=== PATIENT | male | born 1935 | race Caucasian/White ===

== ENCOUNTER → 2016-09-14 | Outpatient (CLI) | payer MEDICARE, BC ==
[2016-09-14 09:57] LABS: ANION GAP 15 (5-19); BLOOD UREA NITROGEN 37 mg/dL (7-20); CALCIUM 9.2 mg/dL (8.4-10.2); CARBON DIOXIDE 25 mmol/L (22-30); CHLORIDE 108 mmol/L (98-107); CREATININE RESULT 1.81 mg/dL (0.52-1.25); GLUCOSE 124 mg/dL (75-110); POTASSIUM 4.5 mmol/L (3.6-5.0); SODIUM 148.3 mmol/L (137-145)
[2016-09-16 12:38] LABS: CREATININE URINE 103.4 mg/dL (Not Estab.)
== END ==
LOC: OD 08:31
PROVIDERS: ATTEND Internal Medicine Nephrology
DX: N18.3 Chronic kidney disease, stage 3 (moderate) (principal); E53.8 Deficiency of other specified B group vitamins
CPT/HCPCS: 36415; 80048; 82570; 82607; 84156

== ENCOUNTER → 2017-01-14 | Outpatient (CLI) | payer MEDICARE, BC ==
[2017-01-15 10:28] LABS: ANION GAP 11 (5-19); BLOOD UREA NITROGEN 25 mg/dL (7-20); CALCIUM 9.3 mg/dL (8.4-10.2); CARBON DIOXIDE 22 mmol/L (22-30); CHLORIDE 110 mmol/L (98-107); CREATININE RESULT 1.48 mg/dL (0.52-1.25); GLUCOSE 98 mg/dL (75-110); POTASSIUM 4.5 mmol/L (3.6-5.0)
== END ==
LOC: OD 09:47
PROVIDERS: ATTEND Internal Medicine Nephrology
DX: N18.3 Chronic kidney disease, stage 3 (moderate) (principal); R80.1 Persistent proteinuria, unspecified
CPT/HCPCS: 36415; 80048

== ENCOUNTER → 2017-05-17 | Outpatient (CLI) | payer MEDICARE, BC ==
[2017-05-17 09:57] LABS: ABSOLUTE EOSINOPHILS # (AUTO) 0.5 10^3/uL (0.0-0.6); ABSOLUTE LYMPHOCYTES (AUTO) 0.6 10^3/uL (0.5-4.7); ABSOLUTE MONOCYTES (AUTO) 0.5 10^3/uL (0.1-1.4); ABSOLUTE NEUT (AUTO) 5.7 10^3/uL (1.7-8.2); BASOPHILS % (AUTO) 0.5 % (0-2); EOSINOPHILS % (AUTO) 7.2 % (0-6); HEMOGLOBIN 13.8 g/dL (13.5-17.0); HGB HCT DIFFERENCE 0.4; LYMPHOCYTES % (AUTO) 8.3 % (13-45); MEAN CORPUSCULAR HEMOGLOBIN 32.5 pg (27.0-33.4); MEAN CORPUSCULAR HGB CONC 33.7 g/dL (32.0-36.0); MEAN CORPUSCULAR VOLUME 96 fl (80-97); MONOCYTES % (AUTO) 6.3 % (3-13); RED BLOOD COUNT 4.26 10^6/uL (4.35-5.55); RED CELL DISTRIBUTION WIDTH 14.6 % (11.5-14.0); SEGMENTED NEUTROPHILS % (AUTO) 77.7 % (42-78); WHITE BLOOD COUNT 7.4 10^3/uL (4.0-10.5)
[2017-05-17 10:14] LABS: APPEARANCE,URINE TURBID; BILIRUBIN,URINE NEGATIVE (NEGATIVE); GLUCOSE, URINE NEGATIVE (NEGATIVE); KETONES,URINE NEGATIVE (NEGATIVE); LEUKOCYTE ESTERASE,URINE LARGE (NEGATIVE); NITRITE,URINE NEGATIVE (NEGATIVE); PROTEIN,URINE 30 mg/dL (NEGATIVE); URINE SPECIFIC GRAVITY 1.013; UROBILINOGEN,URINE NEGATIVE mg/dL (<2.0)
[2017-05-17 10:25] LABS: ALBUMIN 4.1 g/dL (3.5-5.0); ANION GAP 15 (5-19); BLOOD UREA NITROGEN 36 mg/dL (7-20); CALCIUM 9.2 mg/dL (8.4-10.2); CARBON DIOXIDE 21 mmol/L (22-30); CHLORIDE 111 mmol/L (98-107); CREATININE RESULT 1.67 mg/dL (0.52-1.25); GLUCOSE 115 mg/dL (75-110); PHOSPHORUS 3.5 mg/dL (2.5-4.5); POTASSIUM 4.2 mmol/L (3.6-5.0); SODIUM 147.2 mmol/L (137-145)
[2017-05-18 07:32] LABS: VITAMIN D 25-HYDROXY 46.9 ng/mL (30.0-100.0)
[2017-05-18 11:40] LABS: CREATININE URINE 116.7 mg/dL (Not Estab.); MICROALBUMIN URINE 86.9 ug/mL (Not Estab.)
== END ==
LOC: OD 08:50
PROVIDERS: ATTEND Internal Medicine Nephrology
DX: N18.3 Chronic kidney disease, stage 3 (moderate) (principal); R80.1 Persistent proteinuria, unspecified; E55.9 Vitamin D deficiency, unspecified; N25.81 Secondary hyperparathyroidism of renal origin
CPT/HCPCS: 36415; 80048; 81001; 82040; 82043; 82306; 82570; 83970; 84100; 85025

== ENCOUNTER 2017-07-14 14:53 | Emergency (ER) | payer MEDICARE, BC ==
--- NOTE | 2017-07-14 15:42 | ER Document Report ---
ED Medical Screen (RME) - General Chief Complaint: Chest Pain Stated Complaint: CHEST PAIN Time Seen by Provider: 07/14/17 15:35 Notes: 82-year-old male patient comes emergency room for complaints of chest pain. Past history significant for hypertension. He was sitting in his chair this morning when he was hit suddenly in the left parasternal chest with sharp chest pain that lasted approximately 35 seconds and then went away. His called his primary care provider to schedule an appointment to evaluate this. The pain returned while he was in the car riding to the doctor's office this afternoon. It again lasted about 30 seconds. It occurred one more time while he was at the office so he was sent to the emergency room. That also lasted for approximately 30 seconds. He states he feels fine at this time. Nothing seems to provoke the pain, nothing seemed to ease it off. I have greeted and performed a rapid initial assessment of this patient. A comprehensive ED assessment and evaluation of the patient, analysis of test results and completion of the medical decision making process will be conducted by additional ED providers. TRAVEL OUTSIDE OF THE [place] IN LAST 30 DAYS: No - Related Data Allergies/Adverse Reactions: ciprofloxacin [From Cipro] Allergy (Intermediate, Verified 06/27/14 16:51) rash Heparin Analogues [Heparin Agents] Adverse Reaction (Severe, Verified 06/27/14 16:50) Hemorrhage Past Medical History - Past Medical History Cardiac Medical History: Reports: Hx Hypertension - meds > 30 years Denies: Hx Atrial Fibrillation, Hx Congestive Heart Failure, Hx Coronary Artery Disease, Hx Heart Attack, Hx Hypercholesterolemia, Hx Peripheral Vascular Disease, Hx Pulmonary Embolism, Hx Heart Murmur Pulmonary Medical History: Reports: Hx Sleep Apnea - scheduled for sleep study before "end of year" Denies: Hx Asthma, Hx Bronchitis, Hx COPD, Hx Pneumonia, Hx Respiratory Failure, Hx Tuberculosis Neurological Medical History: Reports: Hx Cerebrovascular Accident - 2007, ruptured cerebral aneurysm, denies neuro deficits. Denies: Hx Seizures Renal/ Medical History: Reports: Hx Benign Prostatic Hyperplasia - nocturia x 5/night. Denies: Hx End Stage Renal Disease, Hx Kidney Stones, Hx Peritoneal Dialysis Malignancy Medical History: Denies Hx Lung Cancer GI Medical History: Reports: Hx Gastroesophageal Reflux Disease - meds intermittently x 20 years, Hx Ulcer - Dx'ed approx 20 years ago. Denies: Hx Crohn's Disease, Hx Hiatal Hernia, Hx Irritable Bowel, Hx Liver Failure, Hx Pancreatitis Musculoskeltal Medical History: Reports Hx Arthritis, Denies Hx Fibromyalgia, Denies Hx Multiple Sclerosis, Denies Hx Muscular Dystrophy Psychiatric Medical History: Denies: Hx Dementia Traumatic Medical History: Denies: Hx Fractures Past Surgical History: Reports: Hx Appendectomy - 194. Denies: Hx Bowel Surgery, Hx Cholecystectomy, Hx Colostomy, Hx Coronary Artery Bypass Graft, Hx Gastric Bypass Surgery, Hx Herniorrhaphy, Hx Pacemaker, Hx Tonsillectomy Physical Exam - Vital signs Vitals: Temp Pulse Resp BP Pulse Ox 98.0 F 72 22 H 113/61 96 07/14/17 15:16 07/14/17 15:16 07/14/17 15:16 07/14/17 15:16 07/14/17 15:16 Course - Vital Signs Vital signs: Temp Pulse Resp BP Pulse Ox 98.0 F 72 22 H 113/61 96 07/14/17 15:16 07/14/17 15:16 07/14/17 15:16 07/14/17 15:16 07/14/17 15:16
[2017-07-14 16:19] LABS: ABSOLUTE EOSINOPHILS # (AUTO) 0.6 10^3/uL (0.0-0.6); ABSOLUTE LYMPHOCYTES (AUTO) 0.8 10^3/uL (0.5-4.7); ABSOLUTE MONOCYTES (AUTO) 0.5 10^3/uL (0.1-1.4); ABSOLUTE NEUT (AUTO) 6.4 10^3/uL (1.7-8.2); BASOPHILS % (AUTO) 0.5 % (0-2); EOSINOPHILS % (AUTO) 6.8 % (0-6); HEMATOCRIT 39.7 % (37.9-51.0); HEMOGLOBIN 13.3 g/dL (13.5-17.0); HGB HCT DIFFERENCE 0.2; LYMPHOCYTES % (AUTO) 9.1 % (13-45); MEAN CORPUSCULAR HEMOGLOBIN 32.3 pg (27.0-33.4); MEAN CORPUSCULAR HGB CONC 33.5 g/dL (32.0-36.0); MEAN CORPUSCULAR VOLUME 96 fl (80-97); MONOCYTES % (AUTO) 6.6 % (3-13); RED BLOOD COUNT 4.13 10^6/uL (4.35-5.55); RED CELL DISTRIBUTION WIDTH 15.2 % (11.5-14.0); WHITE BLOOD COUNT 8.4 10^3/uL (4.0-10.5)
--- NOTE | 2017-07-14 16:36 | RADIOLOGY REPORT (SQ) ---
EXAM DESCRIPTION: CHEST PA/LAT COMPLETED DATE/TIME: 07/14/2017 4:08 pm REASON FOR STUDY: Chest pain COMPARISON: 06/04/2014 EXAM PARAMETERS: NUMBER OF VIEWS: two views TECHNIQUE: Digital Frontal and Lateral radiographic views of the chest acquired. RADIATION DOSE: NA LIMITATIONS: none FINDINGS: LUNGS AND PLEURA: No opacities, masses or pneumothorax. No pleural effusion. MEDIASTINUM AND HILAR STRUCTURES: No masses or contour abnormalities. HEART AND VASCULAR STRUCTURES: Heart normal size. No evidence for failure. BONES: No acute findings. HARDWARE: None in the chest. OTHER: No other significant finding. IMPRESSION: NO SIGNIFICANT RADIOGRAPHIC FINDING IN THE CHEST. TECHNICAL DOCUMENTATION: JOB ID: [id number] [employer]- All Rights Reserved
[2017-07-14 16:49] LABS: ALANINE AMINOTRANSFERASE 33 U/L (21-72); ALKALINE PHOSPHATASE 66 U/L (38-126); ANION GAP 14 (5-19); ASPARTATE AMINO TRANSFERASE 19 U/L (17-59); BILIRUBIN,DIRECT 0.3 mg/dL (0.0-0.4); BILIRUBIN,TOTAL 0.5 mg/dL (0.2-1.3); BLOOD UREA NITROGEN 36 mg/dL (7-20); CALCIUM 9.1 mg/dL (8.4-10.2); CARBON DIOXIDE 23 mmol/L (22-30); CHLORIDE 111 mmol/L (98-107); CREATINE KINASE 38 U/L (55-170); CREATININE RESULT 1.76 mg/dL (0.52-1.25); GLUCOSE 71 mg/dL (75-110); POTASSIUM 4.4 mmol/L (3.6-5.0); SODIUM 148.4 mmol/L (137-145)
--- NOTE | 2017-07-14 16:52 | ER Document Report ---
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 It hurt from his left upper chest to his left costal margin in a vertical line did not radiate but sharp in nature and is now resolved. There is no ripping or tearing quality. It was not similar to prior aortic pain. He has no history of angina. There is no shortness of breath, cough, fever, or neurologic symptoms. He was hospitalized in [place] a decade ago with an aortic tear was in rehab for quite a while but did not have surgery so I am inferring that he had a likely type B aortic dissection. TRAVEL OUTSIDE OF THE [place] IN LAST 30 DAYS: No - Related Data Allergies/Adverse Reactions: ciprofloxacin [From Cipro] Allergy (Intermediate, Verified 06/27/14 16:51) rash Heparin Analogues [Heparin Agents] Adverse Reaction (Severe, Verified 06/27/14 16:50) Hemorrhage Past Medical History - Social History Smoking Status: Former Smoker Chew tobacco use (# tins/day): No Frequency of alcohol use: Rare Drug Abuse: None Family History: None Patient has suicidal ideation: No Patient has homicidal ideation: No - Past Medical History Cardiac Medical History: Reports: Hx Hypertension - meds > 30 years Denies: Hx Atrial Fibrillation, Hx Congestive Heart Failure, Hx Coronary Artery Disease, Hx Heart Attack, Hx Hypercholesterolemia, Hx Peripheral Vascular Disease, Hx Pulmonary Embolism, Hx Heart Murmur Pulmonary Medical History: Reports: Hx Sleep Apnea - scheduled for sleep study before "end of year" Denies: Hx Asthma, Hx Bronchitis, Hx COPD, Hx Pneumonia, Hx Respiratory Failure, Hx Tuberculosis Neurological Medical History: Reports: Hx Cerebrovascular Accident - 2006, ruptured cerebral aneurysm, denies neuro deficits. Denies: Hx Seizures Renal/ Medical History: Reports: Hx Benign Prostatic Hyperplasia - nocturia x 5/night. Denies: Hx End Stage Renal Disease, Hx Kidney Stones, Hx Peritoneal Dialysis Malignancy Medical History: Denies Hx Lung Cancer GI Medical History: Reports: Hx Gastroesophageal Reflux Disease - meds intermittently x 20 years, Hx Ulcer - Dx'ed approx 20 years ago. Denies: Hx Crohn's Disease, Hx Hiatal Hernia, Hx Irritable Bowel, Hx Liver Failure, Hx Pancreatitis Musculoskeltal Medical History: Reports Hx Arthritis, Denies Hx Fibromyalgia, Denies Hx Multiple Sclerosis, Denies Hx Muscular Dystrophy Psychiatric Medical History: Denies: Hx Dementia Traumatic Medical History: Denies: Hx Fractures Past Surgical History: Reports: Hx Appendectomy - 1942. Denies: Hx Bowel Surgery, Hx Cholecystectomy, Hx Colostomy, Hx Coronary Artery Bypass Graft, Hx Gastric Bypass Surgery, Hx Herniorrhaphy, Hx Pacemaker, Hx Tonsillectomy - Immunizations Hx Pneumococcal Vaccination: 08/09/09 Review of Systems - Review of Systems Notes: REVIEW OF SYSTEMS GEN: Denies fever, chills, weight loss ENT: Denies sore throat, nasal discharge, ear pain EYES: Denies blurry vision, eye pain, discharge CV: His pain resolved RESP: Denies cough, shortness of breath, wheezing GI: Denies abdominal pain, nausea, vomiting, diarrhea MSK: Denies joint pain/swelling, edema, SKIN: Denies rash, skin lesions LYMPH: Denies swollen glands/lymph nodes NEURO: Denies headache, focal weakness or numbness, dizziness PSYCH: Denies depression, suicidal or homicidal ideation PHYSICAL EXAMINATION General: No acute distress, well-nourished Head: Atraumatic, normocephalic ENT: Mouth normal, oropharynx moist, no exudates or tonsillar enlargement Eyes: Conjunctiva normal, pupils equal, lids normal Neck: No JVD, supple, no guarding CVS: Normal rate, regular rhythm, no murmurs Resp: No resp distress, equal and normal breath sounds bilaterally GI: Nondistended, soft, no tenderness to palpation, no rebound or guarding Ext: No deformities, no edema, normal range of motion in upper and lower ext. Radial and pedal pulses intact. Back: No CVA or midline TTP Skin: No rash, warm Lymphatic: No lymphadeopathy noted Neuro: Awake, alert. Face symmetric. GCS 15. Physical Exam - Vital signs Vitals: Temp Pulse Resp BP Pulse Ox 98.0 F 72 22 H 113/61 96 07/14/17 15:16 07/14/17 15:16 07/14/17 15:16 07/14/17 15:16 07/14/17 15:16 Course - Re-evaluation Re-evalutation: 07/14/17 16:52 82 year male presents with atypical chest pain with normal physical exam. He has a history of aortic dissection. Pain is not consistent with this however he is at risk. We will rule out ACS with troponin EKG, which looks the same as prior with a fascicular block, and obtain CTA of the chest abdomen pelvis. 07/14/17 18:27 Patient's troponin ECG and labs are normal. He had a CT scan, a CT angios aorta [place] aortic arch aneurysm. There is also a thrombosed focal outpouching that I notice on the sagittal reconstructions. Patient has not had imaging here before. He continues to have intermittent sharp left-sided chest pain. When concerned that this may not be an old finding. His blood pressure is stable and he has no signs of endorgan damage. 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 He needs a full rule out for acute coronary syndrome and evaluation of his thoracic aorta. Spoke with [facility] for transfer to the cardiothoracic surgery. 07/14/17 18:54 Patient's blood pressure remains normal and stable. He is intimately having chest pain but appears well. I spoke with cardiothoracic surgery at [facility], Dr. Schaefer, who accepted the patient to the ICU. He agrees with close blood pressure control parameters as needed with nicardipine. - Vital Signs Vital signs: Temp Pulse Resp BP Pulse Ox 98.0 F 72 20 134/67 H 96 07/14/17 15:16 07/14/17 15:16 07/14/17 17:01 07/14/17 17:00 07/14/17 17:01 - Laboratory Result Diagrams: 07/14/17 15:47 07/14/17 15:47 Laboratory results interpreted by me: 07/14/17 07/14/17 15:47 15:47 RBC 4.13 L Hgb 13.3 L RDW 15.2 H Lymphocytes % 9.1 L Eosinophils % 6.8 H Sodium 148.4 H Chloride 111 H BUN 36 H Creatinine 1.76 H Est GFR ( Amer) 45 L Est GFR (Non-Af Amer) 37 L Glucose 71 L Creatine Kinase 38 L - EKG Interpretation by [place] EKG shows normal: Sinus rhythm Rate: Normal When compared to previous EKG there are: Previous EKG unavailable - No ST or T- wave changes Critical Care Note - Critical Care Note Total time excluding time spent on procedures (mins): 31 Comments: The above patient is critically ill. Not including procedures, but including direct re-evaluations, speaking with patient and/or consultants, interpreting results, and documenting, I spent the total amount of minute listed listed above on critical care time Discharge - Discharge Referrals: MARCELA LÓPEZ MD [Primary Care Provider] - Follow up as needed
--- NOTE | 2017-07-14 18:03 | RADIOLOGY REPORT (SQ) ---
EXAM DESCRIPTION: CTA CHEST COMPLETED DATE/TIME: 07/14/2017 5:41 pm REASON FOR STUDY: CP, h/o dissection COMPARISON: None. TECHNIQUE: CT scan of the chest performed using helical scanning technique with dynamic intravenous contrast injection. Images reviewed with lung, soft tissue and bone windows. Reconstructed coronal and sagittal MPR images reviewed. Additional 3 dimensional post-processing performed to develop Maximal Intensity Projection images ([place] P). All images stored on PACS. All CT scanners at this facility use dose modulation, iterative reconstruction, and/or weight based d osing when appropriate to reduce radiation dose to as low as reasonably achievable (ALARA). [facility]: Dose Right [facility]: CareDose [facility]: Dose Right [facility]: Teradose 4D [facility]: [employer] Prep CONTRAST TYPE AND DOSE: contrast/concentration: Isovue 300.00 mg/ml; Total Contrast Delivered: 100.0 ml; Total Saline Delivered: 45.0 ml Contrast bolus adequate for pulmonary arteries and aorta. RENAL FUNCTION: BUN 36 creatinine 1.8 RADIATION DOSE: . LIMITATIONS: None. FINDINGS: LUNGS AND PLEURA: Calcified granuloma right lower lobe. AORTA AND GREAT VESSELS: Saccular aneurysm superior margin of the aortic arch measuring about 4 cm in diameter. No dissection. HEART: No pericardial effusion. PULMONARY ARTERIES: No emboli visualized in the main pulmonary arteries or the segmental branches. HILAR AND MEDIASTINAL STRUCTURES: No identified masses or abnormal nodes. HARDWARE: None in the chest. UPPER ABDOMEN: See separate report of the CT of the abdomen. THYROID AND OTHER SOFT TISSUES: No masses. No adenopathy. BONES: No acute findings. 3D MIPS: Confirm above findings. OTHER: No other significant finding. IMPRESSION: 4 cm diameter aneurysm aortic arch. COMMENT: Quality ID # [id number]: Final reports with documentation of one or more dose reduction techniques (e.g., Automated exposure control, adjustment of the mA and/or kV according to patient size, use of iterative reconstruction technique) TECHNICAL DOCUMENTATION: JOB ID: [id number]- All Rights Reserved
--- NOTE | 2017-07-14 18:07 | RADIOLOGY REPORT (SQ) ---
EXAM DESCRIPTION: CTA ABDOMEN/PELVIS W WO COMPLETED DATE/TIME: 07/14/2017 5:41 pm REASON FOR STUDY: angio, jh/o dissection COMPARISON: None. TECHNIQUE: CT scan of the abdominal aorta extending to the iliac bifurcation performed with intraven ous contrast using helical scanning technique with dynamic intravenous contrast injection. Images rev iewed with lung, soft tissue, and bone windows. Reconstructed coronal and sagittal MPR images reviewe d. All images stored on PACS. Advanced 3D imaging as volume rendering, MIPS, SSD performed? yes All CT scanners at this facility use dose modulation, iterative reconstruction, and/or weight based d osing when appropriate to reduce radiation dose to as low as reasonably achievable (ALARA). [facility]: Dose Right [facility]: CareDose [facility]: Dose Right [facility]: Teradose 4D [facility]: [facility] CONTRAST TYPE AND DOSE: See separate report. RENAL FUNCTION: See separate report. LIMITATIONS: Bilateral hip arthroplasty. FINDINGS: AORTA AND VESSELS: No aneurysm. LUNG BASES: No significant findings. No nodules or infiltrates. LIVER: Normal size. No masses or dilated ducts. SPLEEN: Normal size. No focal lesions. PANCREAS: No masses. No significant calcifications. No adjacent inflammation or peripancreatic fluid collections. Pancreatic duct not dilated. GALLBLADDER: Surgically absent. ADRENAL GLANDS: No significant masses or asymmetry. RIGHT KIDNEY AND URETER: Scarring lower pole. 2 mm nonobstructing calculus. 1.6 cm solid mass lower pole. LEFT KIDNEY AND URETER: Atrophic nonfunctioning. RETROPERITONEUM: No retroperitoneal adenopathy, hemorrhage or masses. BOWEL AND PERITONEAL CAVITY: No masses or inflammatory changes. No free fluid or peritoneal masses. APPENDIX: Not visualized. ABDOMINAL WALL: Small ventral hernia containing fat. BONY STRUCTURES: No acute findings. 3-D IMAGING: Confirms the above findings. OTHER: No other significant finding. IMPRESSION: 1. No aneurysm. 2. Solid mass lower pole right kidney suspicious for renal cell carcinoma. Nonfunctioning left kidne y. TECHNICAL DOCUMENTATION: JOB ID: [id number] Quality ID # [id number]: Final reports with documentation of one or more dose reduction techniques (e.g., Au tomated exposure control, adjustment of the mA and/or kV according to patient size, use of iterative reconstruction technique) 2010 [employer]- All Rights Reserved
[2017-07-14] MEDS ORDERED: LABETALOL HCL INJ 20 MG/4 ML DISP.SYRIN IV PRN (18:55)
--- NOTE | 2017-07-14 20:34 | EKG REPORT ---
SEVERITY:- ABNORMAL ECG - SINUS RHYTHM ATRIAL PREMATURE COMPLEX RBBB AND LAFB : Confirmed by: Arin Reyes 14-Jul-2017 20:33:23
[2017-07-15 01:03] VITALS: BP 128/91
== END 2017-07-14 22:30 | disposition short-term general hospital (02) ==
LOC: ER 14:53
DX: I71.2 Thoracic aortic aneurysm, without rupture (principal); R07.89 Other chest pain; N28.89 Other specified disorders of kidney and ureter; I10 Essential (primary) hypertension; Z88.1 Allergy status to other antibiotic agents; Z87.891 Personal history of nicotine dependence; Z86.73 Personal history of transient ischemic attack (TIA), and cerebral infarction without residual deficits
CPT/HCPCS: 36415; 71020; 71275; 74174; 80053; 82550; 84484; 85025; 93005; 93010; 99291

== ENCOUNTER 2017-07-17 08:34 | Emergency (ER) | payer MEDICARE, BC ==
[2017-07-17] MEDS ORDERED: DIPHENHYDRAMINE HCL 50 MG/ML VIAL IV ONE (08:57)
[2017-07-17] MEDS ORDERED: METHYLPREDNISOLONE INJ 125 MG/2 ML SDV IV ONE (08:57)
[2017-07-17] MEDS ORDERED: NORMAL SALINE 1000 ML 1,000 ML IV ONE (08:58)
--- NOTE | 2017-07-17 09:00 | ER Document Report ---
ED General - General Chief Complaint: Itching Stated Complaint: POSSIBLE ALLERGIC REACTION Time Seen by Provider: 07/17/17 08:50 Notes: 82 years old male who was discharged from [facility] yesterday morning, he was given something night before to coming down his face. When he came home he started itching this morning that he has developed a rash throughout the whole body and severe itching therefore presented to the ED. He denies any difficulty in breathing denies any fever chills or other constitutional symptoms. TRAVEL OUTSIDE OF THE [place] IN LAST 30 DAYS: No - Related Data Allergies/Adverse Reactions: ciprofloxacin [From Cipro] Allergy (Intermediate, Verified 06/27/14 16:51) rash Heparin Analogues [Heparin Agents] Adverse Reaction (Severe, Verified 06/27/14 16:50) Hemorrhage Past Medical History - Social History Smoking Status: Never Smoker Family History: None - Past Medical History Cardiac Medical History: Reports: Hx Hypertension - meds > 30 years Denies: Hx Atrial Fibrillation, Hx Congestive Heart Failure, Hx Coronary Artery Disease, Hx Heart Attack, Hx Hypercholesterolemia, Hx Peripheral Vascular Disease, Hx Pulmonary Embolism, Hx Heart Murmur Pulmonary Medical History: Reports: Hx Sleep Apnea - scheduled for sleep study before "end of year" Denies: Hx Asthma, Hx Bronchitis, Hx COPD, Hx Pneumonia, Hx Respiratory Failure, Hx Tuberculosis Neurological Medical History: Reports: Hx Cerebrovascular Accident - 2006, ruptured cerebral aneurysm, denies neuro deficits. Denies: Hx Seizures Renal/ Medical History: Reports: Hx Benign Prostatic Hyperplasia - nocturia x 5/night. Denies: Hx End Stage Renal Disease, Hx Kidney Stones, Hx Peritoneal Dialysis Malignancy Medical History: Denies Hx Lung Cancer GI Medical History: Reports: Hx Gastroesophageal Reflux Disease - meds intermittently x 20 years, Hx Ulcer - Dx'ed approx 20 years ago. Denies: Hx Crohn's Disease, Hx Hiatal Hernia, Hx Irritable Bowel, Hx Liver Failure, Hx Pancreatitis Musculoskeltal Medical History: Reports Hx Arthritis, Denies Hx Fibromyalgia, Denies Hx Multiple Sclerosis, Denies Hx Muscular Dystrophy Psychiatric Medical History: Denies: Hx Dementia Traumatic Medical History: Denies: Hx Fractures Past Surgical History: Reports: Hx Appendectomy - 1942. Denies: Hx Bowel Surgery, Hx Cholecystectomy, Hx Colostomy, Hx Coronary Artery Bypass Graft, Hx Gastric Bypass Surgery, Hx Herniorrhaphy, Hx Pacemaker, Hx Tonsillectomy - Immunizations Hx Pneumococcal Vaccination: 08/09/09 Review of Systems - Review of Systems Notes: REVIEW OF SYSTEMS: CONSTITUTIONAL : Denies fever, chills, or sweats. Denies recent illness. EENT: Denies eye, ear, throat, or mouth pain or symptoms. Denies nasal or sinus congestion or discharge. Denies throat, tongue, or mouth swelling or difficulty swallowing. CARDIOVASCULAR: Denies chest pain. Denies palpitations or racing or irregular heart beat. Denies ankle edema. RESPIRATORY: Denies cough, cold, or chest congestion. Denies shortness of breath, difficulty breathing, or wheezing. GASTROINTESTINAL: Denies abdominal pain or distention. Denies nausea, vomiting , or diarrhea. Denies blood in vomitus, stools, or per rectum. Denies black, tarry stools. Denies constipation. GENITOURINARY: Denies difficulty urinating, painful urination, burning, frequency, blood in urine, or discharge. MUSCULOSKELETAL: Denies back or neck pain or stiffness. Denies joint pain or swelling. SKIN: Denies rash, lesions or sores. HEMATOLOGIC : Denies easy bruising or bleeding. LYMPHATIC: Denies swollen, enlarged glands. NEUROLOGICAL: Denies confusion or altered mental status. Denies passing out or loss of consciousness. Denies dizziness or lightheadedness. Denies headache. Denies weakness or paralysis or loss of use of either side. Denies problems with gait or speech. Denies sensory loss, numbness, or tingling. Denies seizures. PSYCHIATRIC: Denies anxiety or stress. Denies depression, suicidal ideation, or homicidal ideation. ALL OTHER SYSTEMS REVIEWED AND NEGATIVE. Dictation was performed using [employer] voice recognition software PHYSICAL EXAMINATION: GENERAL: Well-appearing, well-nourished and in no acute distress. HEAD: Atraumatic, normocephalic. EYES: Pupils equal round and reactive to light, extraocular movements intact, sclera anicteric, conjunctiva are normal. ENT: Nares patent, oropharynx clear without exudates. Moist mucous membranes. NECK: Normal range of motion, supple without lymphadenopathy LUNGS: Breath sounds clear to auscultation bilaterally and equal. No wheezes rales or rhonchi. HEART: Regular rate and rhythm without murmurs ABDOMEN: Soft, nontender, nondistended abdomen. No guarding, no rebound. No masses appreciated. Musculoskeletal: Normal range of motion, no pitting or edema. No cyanosis. NEUROLOGICAL: Cranial nerves grossly intact. Normal speech, normal gait. Normal sensory, motor exams PSYCH: Normal mood, normal affect. SKIN: Diffuse macular erythematous blanching rash throughout the whole body which is not warm or tender to touch. Physical Exam - Vital signs Vitals: Temp Pulse Resp BP Pulse Ox 97.5 F 79 22 H 152/69 H 98 07/17/17 08:39 07/17/17 08:39 07/17/17 08:39 07/17/17 08:39 07/17/17 08:39 Course - Vital Signs Vital signs: Temp Pulse Resp BP Pulse Ox 97.5 F 79 22 H 152/69 H 98 07/17/17 08:39 07/17/17 08:39 07/17/17 08:39 07/17/17 08:39 07/17/17 08:39 Discharge - Discharge Clinical Impression: Drug allergy Acute allergic reaction Qualifiers: Encounter type: initial encounter Qualified Code(s): T78.40XA - Allergy, unspecified, initial encounter Disposition: HOME, SELF-CARE Instructions: Acute Allergic Reaction ([facility]) Prescriptions: Methylprednisolone [Medrol Dosepack (4 mg/Tab) 21 Tab/Dosepak] 21 tab PO ASDIR PRN #1 [id number] PRN Reason: Referrals: MARCELA LÓPEZ MD [Primary Care Provider] - Follow up as needed
[2017-07-17] MEDS ORDERED: METHYLPREDNISOLONE ACETATE INJ 80 MG/1 ML VIAL IM PRN (09:58)
[2017-07-17] MEDS ORDERED: DIPHENHYDRAMINE HCL 50 MG/ML VIAL IM ONE (09:58)
[2017-07-17 10:31] VITALS: BP 162/79
== END 2017-07-17 10:35 | disposition home or self-care (01) ==
LOC: ER 08:34
DX: L27.0 Generalized skin eruption due to drugs and medicaments taken internally (principal); T50.905A Adverse effect of unspecified drugs, medicaments and biological substances, initial encounter; Y92.009 Unspecified place in unspecified non-institutional (private) residence as the place of occurrence of the external cause; I10 Essential (primary) hypertension; Z88.1 Allergy status to other antibiotic agents
CPT/HCPCS: 99283; 96372; J1200; J1040

== ENCOUNTER → 2017-09-20 | Outpatient (CLI) | payer MEDICARE, BC ==
[2017-09-20 10:43] LABS: ANION GAP 9 (5-19); BLOOD UREA NITROGEN 29 mg/dL (7-20); CALCIUM 9.4 mg/dL (8.4-10.2); CARBON DIOXIDE 27 mmol/L (22-30); CHLORIDE 109 mmol/L (98-107); GLUCOSE 107 mg/dL (75-110); POTASSIUM 4.6 mmol/L (3.6-5.0); SODIUM 144.9 mmol/L (137-145)
[2017-09-20 12:52] LABS: APPEARANCE,URINE SLIGHTLY-CLOUDY; BILIRUBIN,URINE NEGATIVE (NEGATIVE); COLOR,URINE YELLOW; GLUCOSE, URINE NEGATIVE (NEGATIVE); KETONES,URINE NEGATIVE (NEGATIVE); LEUKOCYTE ESTERASE,URINE NEGATIVE (NEGATIVE); NITRITE,URINE NEGATIVE (NEGATIVE); PROTEIN,URINE 30 mg/dL (NEGATIVE); URINE SPECIFIC GRAVITY 1.017; UROBILINOGEN,URINE NEGATIVE mg/dL (<2.0)
[2017-09-21 13:39] LABS: CREATININE URINE 124.9 mg/dL (Not Estab.); MICROALBUMIN URINE 128.9 ug/mL (Not Estab.)
== END ==
LOC: OD 08:39
PROVIDERS: ATTEND Internal Medicine Nephrology
DX: I12.9 Hypertensive chronic kidney disease with stage 1 through stage 4 chronic kidney disease, or unspecified chronic kidney disease (principal); N18.3 Chronic kidney disease, stage 3 (moderate); E11.9 Type 2 diabetes mellitus without complications
CPT/HCPCS: 36415; 80048; 81001; 82043; 82570

== ENCOUNTER → 2017-10-21 | Outpatient (CLI) | payer MEDICARE, BC ==
[2017-10-21 09:34] LABS: ANION GAP 11 (5-19); BLOOD UREA NITROGEN 34 mg/dL (7-20); CALCIUM 9.8 mg/dL (8.4-10.2); CARBON DIOXIDE 27 mmol/L (22-30); CHLORIDE 112 mmol/L (98-107); GLUCOSE 110 mg/dL (75-110); POTASSIUM 4.8 mmol/L (3.6-5.0); SODIUM 149.6 mmol/L (137-145)
== END ==
LOC: OD 08:36
PROVIDERS: ATTEND Internal Medicine Nephrology
DX: N18.3 Chronic kidney disease, stage 3 (moderate) (principal)
CPT/HCPCS: 36415; 80048

== ENCOUNTER → 2018-01-14 | Outpatient (CLI) | payer MEDICARE, BC ==
[2018-01-14 08:01] LABS: ABSOLUTE EOSINOPHILS # (AUTO) 0.4 10^3/uL (0.0-0.6); ABSOLUTE LYMPHOCYTES (AUTO) 0.7 10^3/uL (0.5-4.7); ABSOLUTE MONOCYTES (AUTO) 0.4 10^3/uL (0.1-1.4); ABSOLUTE NEUT (AUTO) 5.9 10^3/uL (1.7-8.2); BASOPHILS % (AUTO) 0.3 % (0-2); EOSINOPHILS % (AUTO) 5.4 % (0-6); HEMATOCRIT 41.6 % (37.9-51.0); HEMOGLOBIN 14.1 g/dL (13.5-17.0); LYMPHOCYTES % (AUTO) 8.8 % (13-45); MEAN CORPUSCULAR HEMOGLOBIN 31.8 pg (27.0-33.4); MEAN CORPUSCULAR HGB CONC 33.8 g/dL (32.0-36.0); MEAN CORPUSCULAR VOLUME 94 fl (80-97); PLATELET COUNT 218 10^3/uL (150-450); RED BLOOD COUNT 4.42 10^6/uL (4.35-5.55); RED CELL DISTRIBUTION WIDTH 14.6 % (11.5-14.0); SEGMENTED NEUTROPHILS % (AUTO) 79.5 % (42-78); TOTAL CELLS COUNTED % (AUTO) 100 %; WHITE BLOOD COUNT 7.4 10^3/uL (4.0-10.5)
[2018-01-14 08:12] LABS: APPEARANCE,URINE CLOUDY; BILIRUBIN,URINE NEGATIVE (NEGATIVE); COLOR,URINE YELLOW; GLUCOSE, URINE NEGATIVE (NEGATIVE); KETONES,URINE NEGATIVE (NEGATIVE); LEUKOCYTE ESTERASE,URINE LARGE (NEGATIVE); NITRITE,URINE NEGATIVE (NEGATIVE); PROTEIN,URINE 30 mg/dL (NEGATIVE); URINE SPECIFIC GRAVITY 1.012; UROBILINOGEN,URINE NEGATIVE mg/dL (<2.0)
[2018-01-14 08:29] LABS: ALBUMIN 3.9 g/dL (3.5-5.0); ANION GAP 12 (5-19); BLOOD UREA NITROGEN 32 mg/dL (7-20); CALCIUM 9.6 mg/dL (8.4-10.2); CARBON DIOXIDE 26 mmol/L (22-30); CHLORIDE 109 mmol/L (98-107); GLUCOSE 131 mg/dL (75-110); PHOSPHORUS 3.5 mg/dL (2.5-4.5); POTASSIUM 4.1 mmol/L (3.6-5.0); SODIUM 146.6 mmol/L (137-145)
[2018-01-15 14:38] LABS: CREATININE URINE 64.2 mg/dL (Not Estab.); MICROALBUMIN URINE 160.9 ug/mL (Not Estab.)
== END ==
LOC: OD 07:28
PROVIDERS: ATTEND Internal Medicine Nephrology
DX: I12.9 Hypertensive chronic kidney disease with stage 1 through stage 4 chronic kidney disease, or unspecified chronic kidney disease (principal); N18.3 Chronic kidney disease, stage 3 (moderate); R80.9 Proteinuria, unspecified; N25.81 Secondary hyperparathyroidism of renal origin
CPT/HCPCS: 36415; 80048; 81001; 82040; 82043; 82306; 82570; 83970; 84100; 85025

== ENCOUNTER → 2018-01-26 | Outpatient (CLI) | payer MEDICARE, BC ==
[2018-01-26 10:17] LABS: APPEARANCE,URINE TURBID; BILIRUBIN,URINE NEGATIVE (NEGATIVE); COLOR,URINE YELLOW; GLUCOSE, URINE NEGATIVE (NEGATIVE); KETONES,URINE NEGATIVE (NEGATIVE); LEUKOCYTE ESTERASE,URINE NEGATIVE (NEGATIVE); NITRITE,URINE NEGATIVE (NEGATIVE); PROTEIN,URINE NEGATIVE (NEGATIVE); URIC ACID CRYSTALS,URINE TOO NUMEROUS TO CNT /HPF; URINE SPECIFIC GRAVITY 1.017; UROBILINOGEN,URINE NEGATIVE mg/dL (<2.0)
[2018-01-26 10:28] LABS: ANION GAP 13 (5-19); BLOOD UREA NITROGEN 53 mg/dL (7-20); CALCIUM 9.6 mg/dL (8.4-10.2); CARBON DIOXIDE 25 mmol/L (22-30); CHLORIDE 111 mmol/L (98-107); GLUCOSE 108 mg/dL (75-110); POTASSIUM 5.3 mmol/L (3.6-5.0)
[2018-01-27 13:38] LABS: CREATININE URINE 104.8 mg/dL (Not Estab.); MICROALBUMIN URINE 47.9 ug/mL (Not Estab.)
== END ==
LOC: OD 09:26
PROVIDERS: ATTEND Internal Medicine Nephrology
DX: E11.22 Type 2 diabetes mellitus with diabetic chronic kidney disease (principal); I12.9 Hypertensive chronic kidney disease with stage 1 through stage 4 chronic kidney disease, or unspecified chronic kidney disease; N18.3 Chronic kidney disease, stage 3 (moderate); E87.5 Hyperkalemia
CPT/HCPCS: 36415; 80048; 81001; 82043; 82570

== ENCOUNTER 2018-04-11 10:38 | Inpatient (IN) | payer MEDICARE, BC ==
--- NOTE | 2018-04-11 11:04 | ER Document Report ---
ED Medical Screen (RME) - General Chief Complaint: Rectal Bleeding Stated Complaint: RECTAL BLEEDING Time Seen by Provider: 04/11/18 11:02 Mode of Arrival: Ambulatory Information source: Patient Notes: This is an 83-year-old man with a history of COPD, obstructive sleep apnea, dementia, known AAA (followed in [place]) who presents to the emergency room with rectal bleeding. He states he was on the toilet and wiped and there was blood on the tissue. He states when he stood up there was a gush of blood into the toilet that "filled up the toilet". Patient denies any abdominal pain at this time. He denies any chest pain, shortness of breath or weakness. As per the patient's , she states that he has been complaining of some abdominal discomfort yesterday but none this morning. She also states that he was in Dr. Francois's office (his primary care provider) last week because of worsening COPD/ increasing shortness of breath, cough. TRAVEL OUTSIDE OF THE [place] IN LAST 30 DAYS: No - Related Data Allergies/Adverse Reactions: ciprofloxacin [From Cipro] Allergy (Intermediate, Verified 04/11/18 10:48) rash Heparin Analogues [Heparin Agents] Adverse Reaction (Severe, Verified 04/11/18 10:48) Hemorrhage Past Medical History - Social History Chew tobacco use (# tins/day): No Frequency of alcohol use: None - Past Medical History Cardiac Medical History: Reports: Hx Hypertension - meds > 30 years Denies: Hx Atrial Fibrillation, Hx Congestive Heart Failure, Hx Coronary Artery Disease, Hx Heart Attack, Hx Hypercholesterolemia, Hx Peripheral Vascular Disease, Hx Pulmonary Embolism, Hx Heart Murmur Pulmonary Medical History: Reports: Hx Sleep Apnea - scheduled for sleep study before "end of year" Denies: Hx Asthma, Hx Bronchitis, Hx COPD, Hx Pneumonia, Hx Respiratory Failure, Hx Tuberculosis Neurological Medical History: Reports: Hx Cerebrovascular Accident - 2006, ruptured cerebral aneurysm, denies neuro deficits. Denies: Hx Seizures Renal/ Medical History: Reports: Hx Benign Prostatic Hyperplasia - nocturia x 5/night. Denies: Hx End Stage Renal Disease, Hx Kidney Stones, Hx Peritoneal Dialysis Malignancy Medical History: Denies Hx Lung Cancer GI Medical History: Reports: Hx Gastroesophageal Reflux Disease - meds intermittently x 20 years, Hx Ulcer - Dx'ed approx 20 years ago. Denies: Hx Crohn's Disease, Hx Hiatal Hernia, Hx Irritable Bowel, Hx Liver Failure, Hx Pancreatitis Musculoskeltal Medical History: Reports Hx Arthritis, Denies Hx Fibromyalgia, Denies Hx Multiple Sclerosis, Denies Hx Muscular Dystrophy Psychiatric Medical History: Denies: Hx Dementia Traumatic Medical History: Denies: Hx Fractures Past Surgical History: Reports: Hx Appendectomy - 1942. Denies: Hx Bowel Surgery, Hx Cholecystectomy, Hx Colostomy, Hx Coronary Artery Bypass Graft, Hx Gastric Bypass Surgery, Hx Herniorrhaphy, Hx Pacemaker, Hx Tonsillectomy Physical Exam - Vital signs Vitals: Temp Pulse Resp BP Pulse Ox 98.0 F 76 20 117/36 L 99 04/11/18 10:45 04/11/18 10:45 04/11/18 10:45 04/11/18 10:45 04/11/18 10:45 Course - Vital Signs Vital signs: Temp Pulse Resp BP Pulse Ox 98.0 F 76 20 117/36 L 99 04/11/18 10:45 04/11/18 10:45 04/11/18 10:45 04/11/18 10:45 04/11/18 10:45 Doctor's Discharge - Discharge Referrals: FE JESSICA MD [Primary Care Provider] - Follow up as needed
[2018-04-11 11:45] LABS: ABSOLUTE EOSINOPHILS # (AUTO) 0.4 10^3/uL (0.0-0.6); ABSOLUTE LYMPHOCYTES (AUTO) 0.6 10^3/uL (0.5-4.7); ABSOLUTE MONOCYTES (AUTO) 0.4 10^3/uL (0.1-1.4); ABSOLUTE NEUT (AUTO) 6.7 10^3/uL (1.7-8.2); BASOPHILS % (AUTO) 0.3 % (0-2); EOSINOPHILS % (AUTO) 4.4 % (0-6); HEMATOCRIT 38.6 % (37.9-51.0); MEAN CORPUSCULAR HEMOGLOBIN 32.1 pg (27.0-33.4); MEAN CORPUSCULAR HGB CONC 33.8 g/dL (32.0-36.0); MEAN CORPUSCULAR VOLUME 95 fl (80-97); MONOCYTES % (AUTO) 5.2 % (3-13); PLATELET COUNT 254 10^3/uL (150-450); RED BLOOD COUNT 4.06 10^6/uL (4.35-5.55); RED CELL DISTRIBUTION WIDTH 15.1 % (11.5-14.0); SEGMENTED NEUTROPHILS % (AUTO) 83.1 % (42-78); TOTAL CELLS COUNTED % (AUTO) 100 %
[2018-04-11 11:56] LABS: ALANINE AMINOTRANSFERASE 26 U/L (21-72); ALBUMIN 3.6 g/dL (3.5-5.0); ALKALINE PHOSPHATASE 52 U/L (38-126); ANION GAP 16 (5-19); ASPARTATE AMINO TRANSFERASE 24 U/L (17-59); BILIRUBIN,DIRECT 0.4 mg/dL (0.0-0.4); BILIRUBIN,TOTAL 1.1 mg/dL (0.2-1.3); BLOOD UREA NITROGEN 50 mg/dL (7-20); CALCIUM 8.9 mg/dL (8.4-10.2); CARBON DIOXIDE 23 mmol/L (22-30); CHLORIDE 110 mmol/L (98-107); GLUCOSE 138 mg/dL (75-110); POTASSIUM 3.6 mmol/L (3.6-5.0)
--- NOTE | 2018-04-11 12:07 | ER Document Report ---
ED GI Bleed / Rectal Pain - General Mode of Arrival: Ambulatory Information source: Patient TRAVEL OUTSIDE OF THE [place] IN LAST 30 DAYS: No <JAY LIN - Last Filed: 04/11/18 13:36> <ZABRINA FITZPATRICK - Last Filed: 04/11/18 15:07> - General Chief Complaint: Rectal Bleeding Stated Complaint: RECTAL BLEEDING Time Seen by Provider: 04/11/18 11:02 Notes: Patient is an 83-year-old male who presents to the emergency department today with complaints of rectal bleeding. Patient states he noticed the blood while having a bowel movement just prior to arrival today. Patient states he has been asked multiple times in the past by his doctors if he has ever had rectal bleeding but he has never seen any until today. (JAY LIN) - Related Data Allergies/Adverse Reactions: ciprofloxacin [From Cipro] Allergy (Intermediate, Verified 04/11/18 10:48) rash Heparin Analogues [Heparin Agents] Adverse Reaction (Severe, Verified 04/11/18 10:48) Hemorrhage Past Medical History - General Information source: Patient - Social History Smoking Status: Former Smoker Cigarette use (# per day): No Chew tobacco use (# tins/day): No Frequency of alcohol use: None Drug Abuse: None Lives with: Family Family History: None Patient has suicidal ideation: No Patient has homicidal ideation: No - Past Medical History Cardiac Medical History: Reports: Hx Hypertension - meds > 30 years Pulmonary Medical History: Reports: Hx Sleep Apnea - scheduled for sleep study before "end of year" Neurological Medical History: Reports: Hx Cerebrovascular Accident - 2006, ruptured cerebral aneurysm, denies neuro deficits Renal/ Medical History: Reports: Hx Benign Prostatic Hyperplasia - nocturia x 5/night GI Medical History: Reports: Hx Gastroesophageal Reflux Disease - meds intermittently x 20 years, Hx Ulcer - Dx'ed approx 20 years ago Musculoskeletal Medical History: Reports Hx Arthritis Past Surgical History: Reports: Hx Appendectomy - 1942 - Immunizations Hx Pneumococcal Vaccination: 08/09/09 <JAY LIN - Last Filed: 04/11/18 13:36> Review of Systems - Review of Systems Constitutional: No symptoms reported EENT: No symptoms reported Cardiovascular: No symptoms reported Respiratory: No symptoms reported Gastrointestinal: See HPI, Rectal bleeding. denies: Abdominal pain Genitourinary: No symptoms reported Male Genitourinary: No symptoms reported Musculoskeletal: No symptoms reported Skin: No symptoms reported Hematologic/Lymphatic: No symptoms reported Neurological/Psychological: No symptoms reported -: Yes All other systems reviewed and negative <JAY LIN - Last Filed: 04/11/18 13:36> Physical Exam <JAY LIN - Last Filed: 04/11/18 13:36> <ZABRINA FITZPATRICK - Last Filed: 04/11/18 15:07> - Vital signs Vitals: Temp Pulse Resp BP Pulse Ox 98.0 F 76 20 117/36 L 99 04/11/18 10:45 04/11/18 10:45 04/11/18 10:45 04/11/18 10:45 04/11/18 10:45 - Notes Notes: Physical Exam: General: Alert, appears well. HEENT: Normocephalic. Atraumatic. PERRL. Extraocular movements intact. Oropharynx clear. Neck: Supple. Non-tender. Respiratory: No respiratory distress. Clear and equal breath sounds bilaterally. Cardiovascular: 1-2/6 systolic and diastolic murmurs. Abdominal: Normal Inspection. Non-tender. No distension. Normal Bowel Sounds. Rectal: Gross blood on OMA. Back: Non-tender. No deformity or step off. Extremities: Moves all four extremities. Upper extremities: Normal inspection. Normal ROM. Lower extremities: Normal inspection. No edema. Normal ROM. Neurological: Normal cognition. AAOx4. Normal speech. Psychological: Normal affect. Normal Mood. Skin: Warm. Dry. Normal color. (JAY LIN) Course - Laboratory Result Diagrams: 04/11/18 11:33 04/11/18 11:33 <JAY LIN - Last Filed: 04/11/18 13:36> - Laboratory Result Diagrams: 04/11/18 11:33 04/11/18 11:33 - EKG Interpretation by De EKG shows normal: Sinus rhythm, [place], Intervals, QRS Complexes, ST-T Waves Rate: Normal - 60 [place]/QRS: LAHB/LAFB When compared to previous EKG there are: No significant change <ZABRINA FITZPATRICK - Last Filed: 04/11/18 15:07> - Vital Signs Vital signs: Temp Pulse Resp BP Pulse Ox 98.0 F 76 27 H 119/46 L 93 04/11/18 10:45 04/11/18 10:45 04/11/18 14:14 04/11/18 14:14 04/11/18 14:14 - Laboratory Laboratory results interpreted by me: 04/11/18 04/11/18 04/11/18 11:33 11:33 13:21 RBC 4.06 L Hgb 13.0 L RDW 15.1 H Seg Neutrophils % 83.1 H Lymphocytes % 7.0 L Sodium 149.0 H Chloride 110 H BUN 50 H Creatinine 2.38 H Est GFR ( Amer) 32 L Est GFR (Non-Af Amer) 26 L Glucose 138 H Urine Protein 30 H Ur Leukocyte Esterase LARGE H Urine Ascorbic Acid 40 H Discharge <JAY LIN - Last Filed: 04/11/18 13:36> - Discharge Admitting Provider: Francois Unit Admitted: Telemetry <ZABRINA FITZPATRICK - Last Filed: 04/11/18 15:07> - Discharge Clinical Impression: Lower GI bleed Urinary tract infection Qualifiers: Urinary tract infection type: site unspecified Hematuria presence: with hematuria Qualified Code(s): N39.0 - Urinary tract infection, site not specified Condition: Stable Disposition: ADMITTED INPATIENT Scribe Attestation: 04/11/18 12:49 I personally performed the services described in the documentation, reviewed and edited the documentation which was dictated to the scribe in my presence, and it accurately records my words and actions. (ZABRINA FITZPATRICK) Scribe Documentation - Scribe Written by Marion:: Marion Stover, 04/11/2018 1345 acting as scribe for :: Nallely <JAY LIN - Last Filed: 04/11/18 13:36>
[2018-04-11 12:08] LABS: INTERNATIONAL RATION (INR) 1.06; PROTHROMBIN TIME 14.3 SEC (11.4-15.4)
[2018-04-11 14:09] LABS: APPEARANCE,URINE TURBID; BILIRUBIN,URINE NEGATIVE (NEGATIVE); COLOR,URINE YELLOW; GLUCOSE, URINE NEGATIVE (NEGATIVE); KETONES,URINE NEGATIVE (NEGATIVE); LEUKOCYTE ESTERASE,URINE LARGE (NEGATIVE); NITRITE,URINE NEGATIVE (NEGATIVE); PROTEIN,URINE 30 mg/dL (NEGATIVE); URINE SPECIFIC GRAVITY 1.016; UROBILINOGEN,URINE NEGATIVE mg/dL (<2.0)
[2018-04-11] MEDS ORDERED: CEFTRIAXONE 1 GM/D5W RTU 50 ML IV ONE (14:18)
[2018-04-11] MEDS ORDERED: GLUCAGON,HUMAN RECOMB 1 MG INJ SUBCUT PRN (15:03)
[2018-04-11] MEDS ORDERED: DEXTROSE 50%-WATER 25 GM/50 ML DISP.SYRIN IV PRN ×2 (15:03)
[2018-04-11] MEDS ORDERED: DEXTROSE 40% GEL 15 GM TUBE PO PRN ×2 (15:03)
[2018-04-11] MEDS ORDERED: CEFTRIAXONE INJ 1000 MG VIAL IV ONE (15:15)
--- NOTE | 2018-04-11 17:18 | EKG REPORT ---
SEVERITY:- ABNORMAL ECG - SINUS OR ECTOPIC ATRIAL RHYTHM LEFT ANTERIOR FASCICULAR BLOCK CONSIDER [facility] [place] : Confirmed by: Krish Boykin MD 11-Apr-2018 17:17:37
[2018-04-11] MEDS: FAMOTIDINE INJ/PF 20 MG/2 ML SDV IV SCH (17:21)
[2018-04-11] MEDS: 1/2 NORMAL SALINE 1,000 ML IV PRN (21:10)
[2018-04-11] MEDS ORDERED: POLYETHYLENE GLYCOL 3350 POWDER 17 GM/1 PACKET PO ONE (22:15)
--- NOTE | 2018-04-11 22:34 | PDOC CONSULTATION ---
Consultation Consult Date: 04/11/18 Consult reason:: Lower GI Bleed History of Present Illness Admission Date/PCP: 04/11/18 14:59 MARCELA LÓPEZ MD History of Present Illness: SONIDO GARCIA is a 83 year old male with history of hypertension, mild dementia and COPD noted blood on the tissue he used to wipe himself after BM yesterday. Also noted dark blood on the toilet. Patient claims he did not have abdominal pains, nausea or vomiting. He has not had any bleeding episode since. Not on NSAIDs or any anticoagulation. He claims this the first time this happened to him. Past Medical History Cardiac Medical History: Reports: Hypertension - meds > 30 years Denies: Atrial Fibrillation, Congestive Heart Failure, Coronary Artery Disease, Myocardial Infarction, Hyperlipidema, Peripheral Vascular Disease, Pulmonary Embolism, Heart Murmur Pulmonary Medical History: Reports: Sleep Apnea - scheduled for sleep study before "end of year" Denies: Asthma, Bronchitis, Chronic Obstructive Pulmonary Disease (COPD), Pneumonia, Respiratory Failure, Tuberculosis Neurological Medical History: Denies: Seizures Renal/ Medical History: Denies: End Stage Renal Disease Malignancy Medical History: Denies: Lung Cancer GI Medical History: Reports: Gastroesophageal Reflux Disease - meds intermittently x 20 years Denies: Crohn's Disease, Hiatal Hernia Musculoskeltal Medical History: Reports: Arthritis Denies: Fibromyalgia Psychiatric Medical History: Denies: Dementia Past Surgical History Past Surgical History: Reports: Appendectomy - 1941 Denies: Cholecystectomy, Colostomy, Coronary Artery Bypass Graft, Gastric Bypass Surgery, Herniorrhaphy, Pacemaker, Tonsillectomy Social History Lives with: Family Smoking Status: Former Smoker Number of Years Smokin Last Time Smoked: 1987 Frequency of Alcohol Use: Occasional Hx Recreational Drug Use: No Hx Prescription Drug Abuse: No Family History Family History: Reviewed & Not Pertinent Parental Family History Reviewed: Yes Children Family History Reviewed: No Sibling(s) Family History Reviewed.: No Medication/Allergy Home Medications: Albuterol Sulfate [Ventolin Hfa] 2 puff IH QID 04/11/18 Amlodipine Besylate [Norvasc 10 mg Tablet] 10 mg PO QAM 04/11/18 Atorvastatin Calcium [Lipitor 20 mg Tablet] 20 mg PO QHS 04/11/18 Clonidine HCl [Catapres 0.1 mg Tablet] 0.1 mg PO Q12 04/11/18 Fluticasone/Salmeterol [Advair 250-50 Diskus 28 dose] 1 puff IH BID 04/11/18 Furosemide [Lasix 20 mg Tablet] 20 mg PO DAILY 04/11/18 Glimepiride [Amaryl 1 mg Tablet] 0.5 mg PO DAILY 04/11/18 Metoprolol Succinate [Toprol Xl] 100 mg PO DAILY 04/11/18 Pantoprazole Sodium [Protonix] 40 mg PO [id number] 04/11/18 Valsartan [Diovan] 320 mg PO DAILY 04/11/18 Allergies/Adverse Reactions: ciprofloxacin [From Cipro] Allergy (Intermediate, Verified 04/11/18 10:48) rash Heparin Analogues [Heparin Agents] Adverse Reaction (Severe, Verified 04/11/18 10:48) Hemorrhage Review of Systems Constitutional: PRESENT: other - no fever/chills Eyes: PRESENT: other - no visual/hearing changes Cardiovascular: PRESENT: other - no cough/chest pains Gastrointestinal: PRESENT: hematochezia Genitourinary: PRESENT: other - no dysuria Neurological: PRESENT: other - denies lightheadedness Physical Exam Vital Signs: Temp Pulse Resp BP Pulse Ox 97.3 F 69 16 121/52 L 92 04/11/18 20:06 04/11/18 20:06 04/11/18 20:06 04/11/18 20:06 04/11/18 20:06 General appearance: PRESENT: no acute distress Head exam: PRESENT: atraumatic Eye exam: PRESENT: conjunctiva pink Mouth exam: PRESENT: moist Neck exam: PRESENT: full ROM Respiratory exam: PRESENT: clear to auscultation ash Cardiovascular exam: PRESENT: RRR Pulses: PRESENT: normal radial pulses Vascular exam: PRESENT: normal capillary refill GI/Abdominal exam: PRESENT: soft, other - non tender Rectal exam: PRESENT: other - Dark green stools on rectal exam. No obvious hemorrhoids. good sphincter tone. 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 Qualifiers: Diabetes mellitus terminal clerk insulin use: without terminal clerk use Chronic kidney disease stage: stage 4 (severe) Qualified Code(s): E11.22 - Type 2 diabetes mellitus with diabetic chronic kidney disease; N18.4 - Chronic kidney disease, stage 4 (severe); N18.4 - Chronic kidney disease, stage 4 (severe); N18.4 - Chronic kidney disease, stage 4 (severe); N18.4 - Chronic kidney disease , stage 4 (severe) Is this a current diagnosis for this admission?: Yes (5) Urinary tract infection Qualifiers: Urinary tract infection type: site unspecified Hematuria presence: with hematuria Qualified Code(s): N39.0 - Urinary tract infection, site not specified; R31.9 - Hematuria, unspecified; R31.9 - Hematuria, unspecified Is this a current diagnosis for this admission?: Yes - Time Time Spent: 30 to 50 Minutes - Inpatient Certification Medical Necessity: Need For IV Fluids, Need for Surgery - Plan Summary Plan Summary: Keep NPO Hydrate Bowel prep Will endorse to Dr Locke tomorrow for possible colonoscopy
[2018-04-11] MEDS ORDERED: PEG 3350/NA SULF,BICARB,CL/KCL 4000 ML PO ONE (23:45)
[2018-04-11] MEDS ORDERED: PEG 3350/NA SULF,BICARB,CL/KCL 4000 ML ONE (23:52)
[2018-04-12 06:03] LABS: HEMATOCRIT 36.5 % (37.9-51.0); HEMOGLOBIN 12.1 g/dL (13.5-17.0); MEAN CORPUSCULAR HEMOGLOBIN 31.7 pg (27.0-33.4); MEAN CORPUSCULAR HGB CONC 33.2 g/dL (32.0-36.0); MEAN CORPUSCULAR VOLUME 96 fl (80-97); PLATELET COUNT 205 10^3/uL (150-450); RED BLOOD COUNT 3.82 10^6/uL (4.35-5.55); RED CELL DISTRIBUTION WIDTH 15.1 % (11.5-14.0); WHITE BLOOD COUNT 6.6 10^3/uL (4.0-10.5)
[2018-04-12 06:26] LABS: ANION GAP 16 (5-19); BLOOD UREA NITROGEN 41 mg/dL (7-20); CALCIUM 8.6 mg/dL (8.4-10.2); CARBON DIOXIDE 19 mmol/L (22-30); CHLORIDE 111 mmol/L (98-107); GLUCOSE 120 mg/dL (75-110); POTASSIUM 3.6 mmol/L (3.6-5.0); SODIUM 145.5 mmol/L (137-145)
--- NOTE | 2018-04-12 08:26 | PDOC H&P ---
History of Present Illness Admission Date/PCP: 04/11/18 14:59 MARCELA LÓPZE MD Patient complains of: maroon painless rectal bleeding History of Present Illness: SONIDO GARCIA is a 83 year old male with dementia who remembers only that made him come to ER for rectal bleeding. He grew ESBL in may & january for Dr Campbell. In the office on , he complained of dyspnea. Pft: [id number] [id number] [id number]. I prescribed albuterol & advair which does not seem to have gotten yet. 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 Fecal incontinence since 1998 Denies: Crohn's Disease, Hiatal Hernia Musculoskeltal Medical History: Reports: Arthritis Denies: Fibromyalgia Psychiatric Medical History: Reports: Dementia Traumatic Medical History: Reports: None Hematology: Reports: None Past Surgical History Past Surgical History: Reports: Appendectomy - 1942, Orthopedic Surgery - B hip prostheses, Other - cataracts Denies: Cholecystectomy, Colostomy, Coronary Artery Bypass Graft, Gastric Bypass Surgery, Herniorrhaphy, Pacemaker, Tonsillectomy Social History Information Source: Dr. Alicia Lives with: Family Smoking Status: Former Smoker Frequency of Alcohol Use: Occasional Hx Recreational Drug Use: No Hx Prescription Drug Abuse: No - Advance Directive Resuscitation Status: Full Code Family History Family History: Hypertension Parental Family History Reviewed: Yes Children Family History Reviewed: Yes Sibling(s) Family History Reviewed.: Yes Medication/Allergy Home Medications: Albuterol Sulfate [Ventolin Hfa] 2 puff IH QID 04/11/18 Amlodipine Besylate [Norvasc 10 mg Tablet] 10 mg PO QAM 04/11/18 Atorvastatin Calcium [Lipitor 20 mg Tablet] 20 mg PO QHS 04/11/18 Clonidine HCl [Catapres 0.1 mg Tablet] 0.1 mg PO Q12 04/11/18 Fluticasone/Salmeterol [Advair 250-50 Diskus 28 dose] 1 puff IH BID 04/11/18 Furosemide [Lasix 20 mg Tablet] 20 mg PO DAILY 04/11/18 Glimepiride [Amaryl 1 mg Tablet] 0.5 mg PO DAILY 04/11/18 Metoprolol Succinate [Toprol Xl] 100 mg PO DAILY 04/11/18 Pantoprazole Sodium [Protonix] 40 mg PO WBRKFST 04/11/18 Valsartan [Diovan] 320 mg PO DAILY 04/11/18 Allergies/Adverse Reactions: ciprofloxacin [From Cipro] Allergy (Intermediate, Verified 04/11/18 10:48) rash Heparin Analogues [Heparin Agents] Adverse Reaction (Severe, Verified 04/11/18 10:48) Hemorrhage Review of Systems ROS unobtainable: Due to mental status Constitutional: ABSENT: fever(s), headache(s), weight loss Nose, Mouth, and Throat: ABSENT: sore throat Cardiovascular: PRESENT: dyspnea on exertion. ABSENT: chest pain, orthropnea Respiratory: PRESENT: cough, dyspnea. ABSENT: sputum Gastrointestinal: ABSENT: abdominal pain, constipation, diarrhea, hematochezia, vomiting Genitourinary: ABSENT: dysuria, hematuria Neurological: PRESENT: memory loss Physical Exam Vital Signs: Temp Pulse Resp BP Pulse Ox 98.0 F 76 27 H 119/46 L 93 04/11/18 10:45 04/11/18 10:45 04/11/18 14:14 04/11/18 14:14 04/11/18 14:14 General appearance: PRESENT: no acute distress Mouth exam: PRESENT: moist Neck exam: ABSENT: lymphadenopathy, tenderness, thyromegaly, tracheal deviation Respiratory exam: PRESENT: clear to auscultation ash Cardiovascular exam: ABSENT: diastolic murmur, irregular rhythm, systolic murmur GI/Abdominal exam: ABSENT: diminished bowel sounds, mass, organolmegaly, tenderness Extremities exam: ABSENT: pedal edema Neurological exam: ABSENT: oriented to time, oriented to situation Psychiatric exam: PRESENT: appropriate affect Results Laboratory Results: Abnormal - 24 hr 04/11/18 04/11/1818 11:33 11:33 13:21 RBC 4.06 L Hgb 13.0 L Hct RDW 15.1 H Seg Neutrophils % 83.1 H Lymphocytes % 7.0 L Sodium 149.0 H Chloride 110 H Carbon Dioxide BUN 50 H Creatinine 2.38 H Est GFR ( Amer) 32 L Est GFR (Non-Af Amer) 26 L Glucose 138 H Urine Protein 30 H Ur Leukocyte Esterase LARGE H Urine Ascorbic Acid 40 H 04/12/18 04/12/18 05:37 05:37 RBC 3.82 L Hgb 12.1 L Hct 36.5 L RDW 15.1 H Seg Neutrophils % Lymphocytes % Sodium 145.5 H Chloride 111 H Carbon Dioxide 19 L BUN 41 H Creatinine 1.74 H Est GFR ( Amer) 46 L Est GFR (Non-Af Amer) 38 L Glucose 120 H Urine Protein Ur Leukocyte Esterase Urine Ascorbic Acid Assessment & Plan - Diagnosis (1) Lower GI bleed Is this a current diagnosis for this admission?: Yes (2) Urinary tract infection Qualifiers: Urinary tract infection type: site unspecified Hematuria presence: with hematuria Qualified Code(s): N39.0 - Urinary tract infection, site not specified; R31.9 - Hematuria, unspecified; R31.9 - Hematuria, unspecified Is this a current diagnosis for this admission?: Yes Plan: Has pyuria but is not sick. On ceftri now. Culture pending. Consult ID if ESBL again. Bactrim was sensitive but ESBL tends to become resistant to this too. 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 Qualifiers: Diabetes mellitus longterm insulin use: without longterm use Chronic kidney disease stage: stage 4 (severe) Qualified Code(s): E11.22 - Type 2 diabetes mellitus with diabetic chronic kidney disease; N18.4 - Chronic kidney disease, stage 4 (severe); N18.4 - Chronic kidney disease, stage 4 (severe); N18.4 - Chronic kidney disease, stage 4 (severe); N18.4 - Chronic kidney disease , stage 4 (severe) Is this a current diagnosis for this admission?: Yes (5) Obstructive sleep apnea Is this a current diagnosis for this admission?: Yes (6) Essential (primary) hypertension Is this a current diagnosis for this admission?: Yes (7) Panlobular emphysema Is this a current diagnosis for this admission?: Yes (8) Alzheimer's disease with late onset Qualifiers: Dementia behavioral disturbance: without behavioral disturbance Qualified Code(s): G30.1 - Alzheimer's disease with late onset; F02.80 - Dementia in other diseases classified elsewhere without behavioral disturbance; F02.80 - Dementia in other diseases classified elsewhere without behavioral disturbance; F02.80 - Dementia in other diseases classified elsewhere without behavioral disturbance Is this a current diagnosis for this admission?: Yes Plan: tsh b12 - Inpatient Certification Based on my medical assessment, after consideration of the patient's comorbidities, presenting symptoms, or acuity I expect that the services needed warrant INPATIENT care.: Yes I certify that my determination is in accordance with my understanding of Medicare's requirements for reasonable and necessary INPATIENT services [42 CFR 412.3e].: Yes Medical Necessity: Failure to Improve With Outpatient Therapy, Significant Comorbidiites Make Outpatient Treatment Too Risky, Need Close Monitoring Due to Risk of Patient Decompensation, Need For IV Fluids, Need For Continuous Telemetry Monitoring, Need for IV Antibiotics, Risk of Complication if Not Cared For in Hospital, Risk of Diagnosis Which Will Require Inpatient Eval/Care/ Monitoring
[2018-04-12] MEDS: 1/2 NORMAL SALINE 1,000 ML IV PRN ×2 (08:28→17:33)
--- NOTE | 2018-04-12 09:21 | PDOC PROGRESS REPORT ---
Subjective Subjective:: There is an 83-year-old male admitted with lower GI bleeding. Per the patient' s , he had a large amount of bleeding in the toilet at home. It was dark. The patient has had abdominal pain intermittently over the last several weeks. Currently the patient denies chest pain, shortness of breath, fevers, chills, dizziness, orthostasis, nausea, vomiting, blurry vision, rash. He has reported a large amount of melanotic stool. Overnight, his bowel movements were clear. Reason For Visit: LGIB Physical Exam Vital Signs: Temp Pulse Resp BP Pulse Ox 98.2 F 99 16 131/47 H 92 04/12/18 07:13 04/12/18 07:13 04/12/18 07:13 04/12/18 07:13 04/12/18 07:13 Intake & Output 04/11/18 04/12/18 04/13/18 06:59 06:59 06:59 Intake Total 476 1000 Balance 476 1000 Weight 80.9 kg General appearance: PRESENT: no acute distress Head exam: PRESENT: atraumatic, normocephalic Eye exam: PRESENT: EOMI, PERRLA. ABSENT: scleral icterus Mouth exam: PRESENT: moist, neck supple Respiratory exam: PRESENT: clear to auscultation ash. ABSENT: accessory muscle use, chest wall tenderness, tachypnea Pulses: PRESENT: normal radial pulses Vascular exam: PRESENT: normal capillary refill. ABSENT: pallor GI/Abdominal exam: PRESENT: distended - Mild, soft. ABSENT: tenderness Extremities exam: ABSENT: clubbing Musculoskeletal exam: ABSENT: deformity Neurological exam: PRESENT: alert, awake, oriented to person, CN II-XII grossly intact. ABSENT: oriented to place, oriented to time, oriented to situation Psychiatric exam: ABSENT: agitated, anxious, depressed Skin exam: ABSENT: cyanosis, erythema, jaundice Results Laboratory Results: 04/12/18 05:37 04/12/18 05:37 04/12/18 04/12/18 05:37 05:37 WBC 6.6 RBC 3.82 L Hgb 12.1 L Hct 36.5 L MCV 96 MCH 31.7 MCHC 33.2 RDW 15.1 H Plt Count 205 Sodium 145.5 H Potassium 3.6 Chloride 111 H Carbon Dioxide 19 L Anion Gap 16 BUN 41 H Creatinine 1.74 H Est GFR ( Amer) 46 L Est GFR (Non-Af Amer) 38 L Glucose 120 H Calcium 8.6 Assessment & Plan - Diagnosis (1) Lower GI bleed Is this a current diagnosis for this admission?: Yes - Plan Summary Plan Summary: This is an 83-year-old male with lower GI bleeding. Patient has not had any further bleeding since admission. The patient's bowel prep was successful per the nursing staff. I have discussed the case with the patient's , his medical power of estate planning attorney. The patient does not make his own decisions due to dementia. The is requesting EGD and colonoscopy to identify the source of his bleeding. I have discussed with her the risks and the benefits of the procedure. Informed consent obtained and all questions were answered. Plan to proceed with EGD and colonoscopy in the OR today.
[2018-04-12] MEDS ORDERED: CEFTRIAXONE 1 GM/D5W RTU 1 GM/50 ML RTUPB IV SCH (10:00)
[2018-04-12] MEDS: FAMOTIDINE INJ/PF 20 MG/2 ML SDV IV SCH (10:14)
[2018-04-12] MEDS ORDERED: CEFTRIAXONE SODIUM 1,000 MG in NORMAL SALINE 50 ML IV SCH (12:00)
[2018-04-12] MEDS ORDERED: PROPOFOL INJ 200 MG/20 ML VIAL IV ONE (14:11)
[2018-04-12] MEDS ORDERED: ONDANSETRON HCL INJ/PF 4 MG/2 ML SDV IV PRN (14:24)
--- NOTE | 2018-04-12 15:27 | Operative Report ---
Nonrecallable Operative Report DATE OF SURGERY: 04/12/18 PREOPERATIVE DIAGNOSIS: Gastrointestinal hemorrhage POSTOPERATIVE DIAGNOSIS: 1. Gastritis. 2. Diverticulosis. 3. Large internal hemorrhoids OPERATION: 1. EGD. 2. Colonoscopy to the cecum. 3. Rubber band ligation of internal hemorrhoids 5 SURGEON: AUSTIN MAYS ANESTHESIA: LMAC TISSUE REMOVED OR ALTERED: Antral biopsy COMPLICATIONS: None apparent ESTIMATED BLOOD LOSS: Minimal PROCEDURE: Procedure in detail: After informed consent was obtained, the patient was brought into the operating room and laid in the left lateral decubitus position. The endoscope was passed down the oropharynx down the esophagus and into the stomach. The stomach was insufflated with air. Immediately there was noted to be antral gastritis with a small amount of old blood in the antrum. There were no large, broad-based ulcers. There were no visible vessels or clots. The scope was pushed into the duodenum. The first and second portions of the duodenum were adequately surveyed. There was no blood found in these areas. There was no inflammation or irritation present. The scope was pulled back into the stomach. Antral biopsies were obtained. The scope was then retroflexed, and a moderate size hiatal hernia was identified. The scope was then withdrawn up the esophagus. The esophagus was free of any ulcerations, masses, lesions, or other abnormalities. The scope was removed from the oropharynx, and this portion of the procedure was concluded. Attention was then turned to the colonoscopy. The colonoscope was inserted up the rectum, sigmoid colon, descending colon, across the transverse colon, down the ascending colon, and into the cecum. The ileocecal valve and appendiceal orifice were identified. The scope was then withdrawn, circumferentially noting the mucosa. The prep was good. The scope was pulled back past the ascending colon, transverse colon, descending colon, and into the sigmoid colon. In the sigmoid colon, large scattered diverticula were found throughout. The scope was withdrawn down into the rectum. A retroflexion maneuver was performed noting large internal hemorrhoids. As the scope was removed from the patient's rectum he began coughing. This Valsalva maneuver began a moderate amount of internal hemorrhoidal bleeding. Attention was then turned to rubber band ligation of his internal hemorrhoids. The anoscope was inserted. The patient had enlarged internal hemorrhoids circumferentially. The rubber band ligation device was then used to encircle and ligate the hemorrhoids. This was done in 5 different positions circumferentially. This was completed, the procedure was concluded. All sponge , instrument, and needle counts were correct 2. Condition: Stable.
[2018-04-12] MEDS ORDERED: OXYCODONE-ACETAMINOPHEN 5-325 MG TABLET PO PRN ×2 (16:22)
[2018-04-12] MEDS ORDERED: FENTANYL CITRATE INJ/PF 100 MCG/2 ML AMPUL IV PRN ×3 (16:22)
[2018-04-12] MEDS ORDERED: DIPHENHYDRAMINE HCL 50 MG/ML VIAL IV PRN (16:22)
[2018-04-12] MEDS ORDERED: PROMETHAZINE HCL INJ 25 MG/1 ML VIAL IV PRN (16:22)
[2018-04-12] MEDS ORDERED: HALOPERIDOL LACTATE INJ 5 MG/1 ML VIAL IM ONE (20:45)
[2018-04-13 06:52] LABS: HEMATOCRIT 34.7 % (37.9-51.0); HEMOGLOBIN 11.5 g/dL (13.5-17.0); MEAN CORPUSCULAR HEMOGLOBIN 31.5 pg (27.0-33.4); MEAN CORPUSCULAR HGB CONC 33.2 g/dL (32.0-36.0); MEAN CORPUSCULAR VOLUME 95 fl (80-97); PLATELET COUNT 222 10^3/uL (150-450); RED BLOOD COUNT 3.66 10^6/uL (4.35-5.55); RED CELL DISTRIBUTION WIDTH 14.2 % (11.5-14.0); WHITE BLOOD COUNT 6.6 10^3/uL (4.0-10.5)
[2018-04-13 06:59] LABS: ANION GAP 10 (5-19); BLOOD UREA NITROGEN 27 mg/dL (7-20); CALCIUM 8.6 mg/dL (8.4-10.2); CARBON DIOXIDE 20 mmol/L (22-30); CHLORIDE 113 mmol/L (98-107); GLUCOSE 104 mg/dL (75-110); POTASSIUM 3.4 mmol/L (3.6-5.0); SODIUM 142.7 mmol/L (137-145)
--- NOTE | 2018-04-13 07:45 | PDOC DISCHARGE SUMMARY ---
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 Is this a current diagnosis for this admission?: Yes (5) Obstructive sleep apnea Is this a current diagnosis for this admission?: Yes (6) Essential (primary) hypertension Is this a current diagnosis for this admission?: Yes (7) Panlobular emphysema Is this a current diagnosis for this admission?: Yes (8) Alzheimer's disease with late onset Is this a current diagnosis for this admission?: Yes - Additional Information Resuscitation Status: Full Code Discharge Diet: Cardiac Discharge Activity: Activity As Tolerated Home Medications: Albuterol Sulfate [Ventolin Hfa] 2 puff IH QID 04/11/18 Amlodipine Besylate [Norvasc 10 mg Tablet] 10 mg PO QAM 04/11/18 Atorvastatin Calcium [Lipitor 20 mg Tablet] 20 mg PO QHS 04/11/18 Clonidine HCl [Catapres 0.1 mg Tablet] 0.1 mg PO Q12 04/11/18 Fluticasone/Salmeterol [Advair 250-50 Diskus 28 dose] 1 puff IH BID 04/11/18 Furosemide [Lasix 20 mg Tablet] 20 mg PO DAILY 04/11/18 Glimepiride [Amaryl 1 mg Tablet] 0.5 mg PO DAILY 04/11/18 Pantoprazole Sodium [Protonix] 40 mg PO [id number] 04/11/18 Valsartan [Diovan] 320 mg PO DAILY 04/11/18 History of Present Illness Patient complains of: maroon rectal bleeding History of Present Illness: SONIDO GARCIA is a 83 year old male with dementia who remembers only that made him come to ER for rectal bleeding. He grew ESBL in may & january for Dr Campbell. In the office on , he complained of dyspnea. Pft: fvc74 fev1=43 ratio41 fef49. I prescribed albuterol & advair which does not seem to have gotten yet. Hospital Course Hospital Course: endoscopy showed gastritis but no ulcers. Cscop showed nonbleedilng tics and bleeding hemorrhoids which were banded. Urine growing 100k gram-. May be ESBL as before. Had 3d ceftri. No fever. Physical Exam Vital Signs: Temp Pulse Resp BP Pulse Ox 97.8 F 78 18 162/56 H 95 04/12/18 22:27 04/13/18 02:00 04/12/18 22:27 04/12/18 22:27 04/12/18 22:27 Intake & Output 04/11/18 04/12/18 04/13/18 07:59 07:59 07:59 Intake Total 476 2957 Output Total 10 Balance 476 2947 Weight 178 lb 5.663 oz 178 lb 12.718 oz General appearance: PRESENT: no acute distress Respiratory exam: PRESENT: clear to auscultation ash Cardiovascular exam: ABSENT: diastolic murmur, irregular rhythm, systolic murmur GI/Abdominal exam: ABSENT: tenderness Extremities exam: ABSENT: pedal edema Neurological exam: ABSENT: oriented to situation Psychiatric exam: PRESENT: appropriate affect Results Laboratory Results: 04/13/18 05:58 04/13/18 05:58 Labs- Last Values WBC 6.6 10^3/uL (4.0-10.5) 04/13/18 05:58 RBC 3.66 10^6/uL (4.35-5.55) L 04/13/18 05:58 Hgb 11.5 g/dL (13.5-17.0) L 04/13/18 05:58 Hct 34.7 % (37.9-51.0) L 04/13/18 05:58 MCV 95 fl (80-97) 04/13/18 05:58 MCH 31.5 pg (27.0-33.4) 04/13/18 05:58 MCHC 33.2 g/dL (32.0-36.0) 04/13/18 05:58 RDW 14.2 % (11.5-14.0) H 04/13/18 05:58 Plt Count 222 10^3/uL (150-450) 04/13/18 05:58 Seg Neutrophils % 83.1 % (42-78) H 04/11/18 11:33 Lymphocytes % 7.0 % (13-45) L 04/11/18 11:33 Monocytes % 5.2 % (3-13) 04/11/18 11:33 Eosinophils % 4.4 % (0-6) 04/11/18 11:33 Basophils % 0.3 % (0-2) 04/11/18 11:33 Absolute Neutrophils 6.7 10^3/uL (1.7-8.2) 04/11/18 11:33 Absolute Lymphocytes 0.6 10^3/uL (0.5-4.7) 04/11/18 11:33 Absolute Monocytes 0.4 10^3/uL (0.1-1.4) 04/11/18 11:33 Absolute Eosinophils 0.4 10^3/uL (0.0-0.6) 04/11/18 11:33 Absolute Basophils 0.0 10^3/uL (0.0-0.2) 04/11/18 11:33 PT 14.3 SEC (11.4-15.4) 04/11/18 11:33 INR 1.06 04/11/18 11:33 Sodium 142.7 mmol/L (137-145) 04/13/18 05:58 Potassium 3.4 mmol/L (3.6-5.0) L 04/13/18 05:58 Chloride 113 mmol/L (98-107) H 04/13/18 05:58 Carbon Dioxide 20 mmol/L (22-30) L 04/13/18 05:58 Anion Gap 10 (5-19) 04/13/18 05:58 BUN 27 mg/dL (7-20) H 04/13/18 05:58 Creatinine 1.44 mg/dL (0.52-1.25) H 04/13/18 05:58 Est GFR ( Amer) 57 (>60) L 04/13/18 05:58 Est GFR (Non-Af Amer) 47 (>60) L 04/13/18 05:58 Glucose 104 mg/dL (75-110) 04/13/18 05:58 POC Glucose 108 mg/dL (70-110) 04/12/18 06:38 Calcium 8.6 mg/dL (8.4-10.2) 04/13/18 05:58 Total Bilirubin 1.1 mg/dL (0.2-1.3) 04/11/18 11:33 Direct Bilirubin 0.4 mg/dL (0.0-0.4) 04/11/18 11:33 Neonat Total Bilirubin Not Reportable 04/11/18 11:33 Neonat Direct Bilirubin Not Reportable 04/11/18 11:33 Neonat Indirect Bili Not Reportable 04/11/18 11:33 AST 24 U/L (17-59) 04/11/18 11:33 ALT 26 U/L (21-72) 04/11/18 11:33 Alkaline Phosphatase 52 U/L (38-126) 04/11/18 11:33 Total Protein 7.0 g/dL (6.3-8.2) 04/11/18 11:33 Albumin 3.6 g/dL (3.5-5.0) 04/11/18 11:33 Vitamin B12 370.0 pg/mL (239-931) 04/12/18 05:37 TSH 1.13 uIU/mL (0.47-4.68) 04/12/18 05:37 Urine Color YELLOW 04/11/18 13:21 Urine Appearance TURBID 04/11/18 13:21 Urine pH 5.0 (5.0-9.0) 04/11/18 13:21 Ur Specific [place] 1.016 04/11/18 13:21 Urine Protein 30 mg/dL (NEGATIVE) H 04/11/18 13:21 Urine Glucose (UA) NEGATIVE mg/dL (NEGATIVE) 04/11/18 13:21 Urine Ketones NEGATIVE mg/dL (NEGATIVE) 04/11/18 13:21 Urine Blood NEGATIVE (NEGATIVE) 04/11/18 13:21 Urine Nitrite NEGATIVE (NEGATIVE) 04/11/18 13:21 Urine Bilirubin NEGATIVE (NEGATIVE) 04/11/18 13:21 Urine Urobilinogen NEGATIVE mg/dL (<2.0) 04/11/18 13:21 Ur Leukocyte Esterase LARGE (NEGATIVE) H 04/11/18 13:21 Urine WBC (Auto) >182 /HPF 04/11/18 13:21 Urine RBC (Auto) 22 /HPF 04/11/18 13:21 Urine Bacteria (Auto) 3+ /HPF 04/11/18 13:21 Urine WBC Clumps MANY /HPF 04/11/18 13:21 Squamous Epi Cells Auto 1 /HPF 04/11/18 13:21 U Non-Squamous Epis Auto 1 /HPF 04/11/18 13:21 Urine Ascorbic Acid 40 (NEGATIVE) H 04/11/18 13:21 Stool Occult Blood POSITIVE (NEGATIVE) 04/11/18 11:55 Blood Type A POSITIVE 04/11/18 12:21 Antibody Screen NEGATIVE 04/11/18 12:21 Qualifiers - * PATIENT BEING DISCHARGED WITH ANY OF THE FOLLOWING DIAGNOSIS: No Plan Discharge Plan: home. Has ov in 5d
[2018-04-13 08:16] VITALS: BP 157/50
[2018-04-13] MEDS ORDERED: GLIMEPIRIDE 1 MG TABLET PO SCH (10:00)
[2018-04-13] MEDS ORDERED: CLONIDINE HCL 0.1 MG TABLET PO SCH (10:00)
[2018-04-13] MEDS ORDERED: VALSARTAN 160 MG TABLET PO SCH (10:00)
[2018-04-13] MEDS ORDERED: AMLODIPINE BESYLATE 10 MG TABLET PO SCH (10:00)
[2018-04-13] MEDS ORDERED: PSYLLIUM SEED-SF 5.85 GM PACKET PO SCH (10:00)
[2018-04-13] MEDS ORDERED: (PENDING PHARMACY ID) (Valsartan [Diovan] 320 MG) PO SCH (10:00)
[2018-04-13] MEDS ORDERED: ALBUTEROL SULFATE HFA (90 MCG/PUFF) 8 GM MDI (1 MDI/ER DISP) IH SCH (10:00)
[2018-04-13] MEDS ORDERED: ALBUTEROL SULFATE HFA (90 MCG/PUFF) 200 PUFF/8.5 GM MDI IH SCH (10:00)
[2018-04-13] MEDS ORDERED: FLUTICASONE/SALMETEROL DISKUS 250-50 MCG/DOSE IH SCH (10:00)
[2018-04-13] MEDS ORDERED: FUROSEMIDE 20 MG TABLET PO SCH (10:00)
[2018-04-13] MEDS ORDERED: METOPROLOL SUCCINATE 50 MG TAB.SR.24H PO SCH (10:00)
[2018-04-13] MEDS ORDERED: ATORVASTATIN CALCIUM 20 MG TABLET PO SCH (22:00)
[2018-04-14] MEDS ORDERED: LANSOPRAZOLE 30 MG TAB.RAP.DR PO SCH (06:00)
--- NOTE | 2018-04-18 15:37 | DISCHARGE SUMMARY E ---
Discharge Summary NAME: SONIDO GARCIA : 1935 AGE: 83Y ADMITTED: 04/11/2018 DISCHARGED: 04/13/2018 ADDENDUM Explained his acute kidney injury. It was from the lower GI bleed and relative hypotension or dehydration. Creatinine went from 2.4 to 1.7 by discharge. DICTATING PHYSICIAN: MARCELA LÓPEZ M.D. [id number] PHY#: [id number] ID: [id number] JOB#: [id number] ACCT: [id number] cc:MARCELA LÓPEZ M.D. >
== END 2018-04-13 09:25 | disposition home or self-care (01) | DRG 348 ==
LOC: ER 10:38 → EH 14:59 → 4S 18:05
PROVIDERS: ADMIT Family Medicine; ATTEND Family Medicine
PROC: 06LY4CC Occlusion of Hemorrhoidal Plexus with Extraluminal Device, Percutaneous Endoscopic Approach (ICD-10-PCS; principal; 2018-04-12 14:00)
PROC: 0DB68ZX Excision of Stomach, Via Natural or Artificial Opening Endoscopic, Diagnostic (ICD-10-PCS; 2018-04-12 14:00)
DX: K64.8 Other hemorrhoids (principal); N17.9 Acute kidney failure, unspecified; N39.0 Urinary tract infection, site not specified; G82.22 Paraplegia, incomplete; N18.4 Chronic kidney disease, stage 4 (severe); E86.0 Dehydration; I95.9 Hypotension, unspecified; E11.22 Type 2 diabetes mellitus with diabetic chronic kidney disease; G47.33 Obstructive sleep apnea (adult) (pediatric); I12.9 Hypertensive chronic kidney disease with stage 1 through stage 4 chronic kidney disease, or unspecified chronic kidney disease; J43.1 Panlobular emphysema; G30.1 Alzheimer's disease with late onset; F02.80 Dementia in other diseases classified elsewhere, unspecified severity, without behavioral disturbance, psychotic disturbance, mood disturbance, and anxiety; M19.90 Unspecified osteoarthritis, unspecified site; K21.9 Gastro-esophageal reflux disease without esophagitis; H35.30 Unspecified macular degeneration; E11.36 Type 2 diabetes mellitus with diabetic cataract; R31.9 Hematuria, unspecified; K29.70 Gastritis, unspecified, without bleeding; K57.30 Diverticulosis of large intestine without perforation or abscess without bleeding; N40.0 Benign prostatic hyperplasia without lower urinary tract symptoms; Z79.899 Other long term (current) drug therapy; Z87.891 Personal history of nicotine dependence; Z88.3 Allergy status to other anti-infective agents; Z86.010 Personal history of colon polyps; Z82.49 Family history of ischemic heart disease and other diseases of the circulatory system
CPT/HCPCS: 36415; 43239; 45378; 46221; 80048; 80053; 81001; 813; 82272; 82607; 82962; 84443; 85025; 85027; 85610; 86850; 86900; 86901; 87040; 87086; 87088; 87186; 88305; 88342; 93005; 93010; 99285; J0696; J1630; J2704; J3490; S0028

== ENCOUNTER → 2018-05-20 | Outpatient (CLI) | payer MEDICARE, BC ==
[2018-05-20 11:25] LABS: ANION GAP 11 (5-19); BLOOD UREA NITROGEN 46 mg/dL (7-20); CARBON DIOXIDE 21 mmol/L (22-30); CHLORIDE 113 mmol/L (98-107); GLUCOSE 170 mg/dL (75-110); POTASSIUM 4.7 mmol/L (3.6-5.0); SODIUM 145.1 mmol/L (137-145)
[2018-05-20 11:35] LABS: URINE CREATININE 85.7 mg/dL (22-328)
[2018-05-20 11:48] LABS: UR PRO/CREAT RATIO RESULT 0.4 mg/mg (0.0-0.2); URINE PROTEIN 31.9 mg/dL (<12)
== END ==
LOC: OD 10:08
PROVIDERS: ATTEND Internal Medicine Nephrology
DX: N18.3 Chronic kidney disease, stage 3 (moderate) (principal); N25.81 Secondary hyperparathyroidism of renal origin; E11.22 Type 2 diabetes mellitus with diabetic chronic kidney disease
CPT/HCPCS: 36415; 80048; 82570; 83970; 84156

== ENCOUNTER → 2018-07-05 | Outpatient (CLI) | payer MEDICARE, BC ==
[2018-07-05 18:00] LABS: ANION GAP 17 (5-19); BLOOD UREA NITROGEN 44 mg/dL (7-20); CALCIUM 9.6 mg/dL (8.4-10.2); CARBON DIOXIDE 21 mmol/L (22-30); CHLORIDE 109 mmol/L (98-107); GLUCOSE 105 mg/dL (75-110); POTASSIUM 4.2 mmol/L (3.6-5.0); SODIUM 146.9 mmol/L (137-145)
== END ==
LOC: OD 16:35
PROVIDERS: ATTEND Internal Medicine Nephrology
DX: N17.9 Acute kidney failure, unspecified (principal)
CPT/HCPCS: 36415; 80048

== ENCOUNTER → 2018-11-09 | Outpatient (CLI) | payer MEDICARE, BC ==
[2018-11-09 09:38] LABS: HEMATOCRIT 37.2 % (37.9-51.0); HEMOGLOBIN 12.4 g/dL (13.5-17.0); MEAN CORPUSCULAR HEMOGLOBIN 32.7 pg (27.0-33.4); MEAN CORPUSCULAR HGB CONC 33.4 g/dL (32.0-36.0); MEAN CORPUSCULAR VOLUME 98 fl (80-97); PLATELET COUNT 254 10^3/uL (150-450); RED BLOOD COUNT 3.81 10^6/uL (4.35-5.55); RED CELL DISTRIBUTION WIDTH 17.6 % (11.5-14.0); WHITE BLOOD COUNT 10.7 10^3/uL (4.0-10.5)
[2018-11-09 09:53] LABS: ABSOLUTE LYMPHOCYTES# (MANUAL) 0.2 10^3/uL (0.5-4.7); ABSOLUTE MONOCYTES # (MANUAL) 0.4 10^3/uL (0.1-1.4); BASOPHILS % (MANUAL) 1 % (0-2); EOSINOPHILS % (MANUAL) 0 % (0-6); LYMPHOCYTES % (MANUAL) 2 % (13-45); MONOCYTES % (MANUAL) 4 % (3-13); SEGMENTED NEUTROPHILS % (MAN) 93 % (42-78); TOTAL CELLS COUNTED 100
[2018-11-09 09:56] LABS: ANISOCYTOSIS 1+; OVALOCYTES 1+; PAPPENHEIMER BODIES PRESENT; PLATELET COMMENT ADEQUATE; POIKILOCYTOSIS 1+; POLYCHROMASIA 1+; SCHISTOCYTES 1+; TOXIC VACUOLATION PRESENT
[2018-11-09 10:00] LABS: ALBUMIN 3.8 g/dL (3.5-5.0); ANION GAP 10 (5-19); BLOOD UREA NITROGEN 37 mg/dL (7-20); CALCIUM 9.9 mg/dL (8.4-10.2); CARBON DIOXIDE 20 mmol/L (22-30); CHLORIDE 113 mmol/L (98-107); GLUCOSE 172 mg/dL (75-110); PHOSPHORUS 3.3 mg/dL (2.5-4.5); POTASSIUM 4.7 mmol/L (3.6-5.0); SODIUM 142.9 mmol/L (137-145)
== END ==
LOC: OD 09:07
PROVIDERS: ATTEND Internal Medicine Nephrology
DX: I12.9 Hypertensive chronic kidney disease with stage 1 through stage 4 chronic kidney disease, or unspecified chronic kidney disease (principal); N18.3 Chronic kidney disease, stage 3 (moderate); E11.22 Type 2 diabetes mellitus with diabetic chronic kidney disease
CPT/HCPCS: 36415; 80048; 82040; 82306; 83970; 84100; 85025

== ENCOUNTER 2018-11-15 19:09 | Inpatient (IN) | payer MEDICARE, BC ==
[2018-11-15] MEDS ORDERED: ASPIRIN 81 MG TABLET, CHEWABLE PO ONE (20:02)
--- NOTE | 2018-11-15 20:12 | ER Document Report ---
Addendum entered and electronically signed by BRAXTON PHAM PA 11/15/18 21:56: Course - Re-evaluation Re-evalutation: 11/15/18 21:55 Initial troponin noted to be 0.117. Call placed to charge nurse, getting patient back into a room. Triage level increased to level 2. - Vital Signs Vital signs: Temp Pulse Resp BP Pulse Ox 98.0 F 112 H 16 154/50 H 93 11/15/18 20:07 11/15/18 20:07 11/15/18 20:07 11/15/18 20:07 11/15/18 20:07 - Laboratory Result Diagrams: 11/15/18 20:55 11/15/18 20:55 Laboratory results interpreted by me: 11/15/18 11/15/18 20:55 20:55 RBC 3.99 L Hgb 13.0 L MCV 98 H RDW 17.3 H Seg Neutrophils % 80.9 H Lymphocytes % 10.5 L Sodium 146.0 H Chloride 115 H Carbon Dioxide 21 L BUN 42 H Creatinine 2.03 H Est GFR ( Amer) 38 L Est GFR (Non-Af Amer) 32 L Creatine Kinase 54 L Original Note: ED Medical Screen (RME) - General Chief Complaint: Chest Pain Stated Complaint: CHEST PAIN Time Seen by Provider: 11/15/18 20:01 Primary Care Provider: FE JESSICA MD [Primary Care Provider] - Follow up as needed Mode of Arrival: Wheelchair Information source: Relative - and [id number] Notes: Patient presents to emergency department with complaints of sharp chest pain that started this morning. Increased shortness of breath. Patient does have a cardiac history aortic tear and one kidney. Patient does also have dementia. I have greeted and performed a rapid initial assessment of this patient. A comprehensive ED assessment and evaluation of the patient, analysis of test results and completion of the medical decision making process will be conducted by additional ED providers. TRAVEL OUTSIDE OF THE [place] IN LAST 30 DAYS: No - Related Data Allergies/Adverse Reactions: ciprofloxacin [From Cipro] Allergy (Intermediate, Verified 04/11/18 10:48) rash Heparin Analogues [Heparin Agents] Adverse Reaction (Severe, Verified 04/11/18 10:48) Hemorrhage Past Medical History - Past Medical History Cardiac Medical History: Reports: Hx Hypercholesterolemia, Hx Hypertension - meds > 30 years Denies: Hx Atrial Fibrillation, Hx Congestive Heart Failure, Hx Coronary Artery Disease, Hx Heart Attack, Hx Peripheral Vascular Disease, Hx Pulmonary Embolism, Hx Heart Murmur Pulmonary Medical History: Reports: Hx COPD, Hx Sleep Apnea - intolerant cpap Denies: Hx Asthma, Hx Bronchitis, Hx Pneumonia, Hx Respiratory Failure, Hx Tuberculosis Neurological Medical History: Reports: Hx Cerebrovascular Accident - 2006, ruptured cerebral aneurysm, denies neuro deficits. Denies: Hx Seizures Endocrine Medical History: Reports: Hx Diabetes Mellitus Type 2 Renal/ Medical History: Reports: Hx Benign Prostatic Hyperplasia - nocturia x 5/night. Denies: Hx End Stage Renal Disease, Hx Kidney Stones, Hx Peritoneal Dialysis Malignancy Medical History: Denies Hx Lung Cancer GI Medical History: Reports: Hx Gastroesophageal Reflux Disease - meds i ntermittently x 20 years, Hx Ulcer - Dx'ed approx 20 years ago. Denies: Hx Crohn's Disease, Hx Hiatal Hernia, Hx Irritable Bowel, Hx Liver Failure, Hx Pancreatitis Musculoskeltal Medical History: Reports Hx Arthritis, Denies Hx Fibromyalgia, Denies Hx Multiple Sclerosis, Denies Hx Muscular Dystrophy Psychiatric Medical History: Reports: Hx Dementia Traumatic Medical History: Denies: Hx Fractures Past Surgical History: Reports: Hx Appendectomy - 1942, Hx Orthopedic Surgery - B hip prostheses, Other - cataracts. Denies: Hx Bowel Surgery, Hx Cholecystectomy, Hx Colostomy, Hx Coronary Artery Bypass Graft, Hx Gastric Bypass Surgery, Hx Herniorrhaphy, Hx Pacemaker, Hx Tonsillectomy Physical Exam - Vital signs Vitals: Temp Pulse Resp BP Pulse Ox 98.0 F 112 H 16 154/50 H 93 11/15/18 20:07 11/15/18 20:07 11/15/18 20:07 11/15/18 20:07 11/15/18 20:07 Course - Vital Signs Vital signs: Temp Pulse Resp BP Pulse Ox 98.0 F 112 H 16 154/50 H 93 11/15/18 20:07 11/15/18 20:07 11/15/18 20:07 11/15/18 20:07 11/15/18 20:07 Doctor's Discharge - Discharge Referrals: FE JESSICA MD [Primary Care Provider] - Follow up as needed
--- NOTE | 2018-11-15 20:38 | RADIOLOGY REPORT (SQ) ---
EXAM DESCRIPTION: [facility]: XR CHEST 2 VIEWS Views: 2 CLINICAL HISTORY: 83 years Male, chest pain COMPARISON: 07/14/2017 FINDINGS: Lungs are hyperinflated as on prior exam. There are small bilateral pleural effusions, best seen on lateral view. No focal acute infiltrates. No significant interstitial edema. No pneumothorax. Aortic arch is prominent, as on prior exam. No mediastinal shift. Bony structures are unremarkable for age. IMPRESSION: 1. Minimal bilateral pleural effusions. 2. No focal infiltrates. 3. Thoracic aortic aneurysm, similar to prior exam.
[2018-11-15 21:26] LABS: ABSOLUTE EOSINOPHILS # (AUTO) 0.1 10^3/uL (0.0-0.6); ABSOLUTE LYMPHOCYTES (AUTO) 0.7 10^3/uL (0.5-4.7); ABSOLUTE MONOCYTES (AUTO) 0.4 10^3/uL (0.1-1.4); ABSOLUTE NEUT (AUTO) 5.5 10^3/uL (1.7-8.2); BASOPHILS % (AUTO) 0.5 % (0-2); EOSINOPHILS % (AUTO) 2.2 % (0-6); HEMATOCRIT 38.9 % (37.9-51.0); LYMPHOCYTES % (AUTO) 10.5 % (13-45); MEAN CORPUSCULAR HEMOGLOBIN 32.7 pg (27.0-33.4); MEAN CORPUSCULAR HGB CONC 33.5 g/dL (32.0-36.0); MEAN CORPUSCULAR VOLUME 98 fl (80-97); MONOCYTES % (AUTO) 5.9 % (3-13); PLATELET COUNT 313 10^3/uL (150-450); RED BLOOD COUNT 3.99 10^6/uL (4.35-5.55); RED CELL DISTRIBUTION WIDTH 17.3 % (11.5-14.0); SEGMENTED NEUTROPHILS % (AUTO) 80.9 % (42-78); TOTAL CELLS COUNTED % (AUTO) 100 %; WHITE BLOOD COUNT 6.8 10^3/uL (4.0-10.5)
[2018-11-15 21:30] LABS: ALANINE AMINOTRANSFERASE 28 U/L (21-72); ALKALINE PHOSPHATASE 67 U/L (38-126); ANION GAP 10 (5-19); ASPARTATE AMINO TRANSFERASE 25 U/L (17-59); BILIRUBIN,DIRECT 0.2 mg/dL (0.0-0.4); BILIRUBIN,TOTAL 0.8 mg/dL (0.2-1.3); BLOOD UREA NITROGEN 42 mg/dL (7-20); CARBON DIOXIDE 21 mmol/L (22-30); CHLORIDE 115 mmol/L (98-107); CREATINE KINASE 54 U/L (55-170); GLUCOSE 102 mg/dL (75-110); POTASSIUM 4.2 mmol/L (3.6-5.0); TOTAL PROTEIN 7.5 g/dL (6.3-8.2)
--- NOTE | 2018-11-15 22:24 | ER Document Report ---
ED Cardiac - General Chief Complaint: Chest Pain Stated Complaint: CHEST PAIN Time Seen by Provider: 11/15/18 22:24 Primary Care Provider: FE JESSICA MD [ACTIVE STAFF] - Follow up as needed Mode of Arrival: Wheelchair Information source: Patient, Relative Cannot obtain history due to: Dementia Notes: HISTORY OF PRESENT ILLNESS: Patient is an 83-year-old male with a past medical history of hypertension, diabetes, known thoracic aortic aneurysm, and dementia who presents with acute onset left-sided sharp chest pain that began "a few days ago but really started weeks ago with trouble breathing." The patient has dementia, therefore information is obtained from his at bedside. Location: Left chest Onset: Several days ago Alleviation: None Provocation: Movement Quality: Sharp Radiation: None Severity: Mild to moderate Timing: Intermittent but never resolves completely History of CAD: None known Associated symptoms: No fevers or chills, no cough or congestion, no vomiting or diarrhea, no swelling or difficulty breathing REVIEW OF SYSTEMS: CONSTITUTIONAL : Denies fever or chills, no sweats. Denies recent illness. EENT: Denies eye, ear, throat, or mouth pain or symptoms. Denies nasal or sinus congestion. CARDIOVASCULAR: Positive for chest pain. Denies swelling of the legs. RESPIRATORY: Denies cough, cold, or chest congestion. Denies shortness of breath or difficulty breathing. Denies wheezing. GASTROINTESTINAL: Denies abdominal pain. Denies nausea, vomiting, or diarrhea. Denies constipation. GENITOURINARY: Denies difficulty urinating, painful urination, burning, frequency, or blood in urine. MUSCULOSKELETAL: Denies neck or back pain or joint pain or swelling. SKIN: Denies rash or skin lesions. HEMATOLOGIC : Denies easy bruising or bleeding. LYMPHATIC: Denies swollen, enlarged glands. NEUROLOGICAL: Denies altered mental status or loss of consciousness. Denies headache. Denies weakness or paralysis or loss of use of either side. Denies problems with gait or speech. Denies sensory or motor loss. PSYCHIATRIC: Denies anxiety or stress or depression. All other systems reviewed and negative. PHYSICAL EXAMINATION: GENERAL: Well-appearing, well-nourished and in no acute distress. HEAD: Atraumatic, normocephalic. No scalp deformity, depression, or crepitance. EYES: Pupils are 3 mm and equal/round/reactive to light, extraocular movements intact, sclera anicteric, conjunctiva are normal. ENT: Nares patent bilaterally, oropharynx. Moist mucous membranes. No tonsil hypertrophy. NECK: Normal range of motion, supple without lymphadenopathy. LUNGS: Breath sounds present, equal, and clear to auscultation bilaterally. No wheezes, rales, or rhonchi. HEART: Regular rate and rhythm without murmurs, rubs, or gallops. 2+ peripheral pulses. Normal capillary refill. ABDOMEN: Soft, nontender, nondistended. Normoactive bowel sounds. No guarding, no rebound. No masses appreciated. BACK: Normal contour, no midline tenderness. Rectal exam deferred. GENITAL/PELVIC: Deferred. EXTREMITIES: Normal range of motion, no pitting or edema. No cyanosis. NEUROLOGICAL: No focal neurological deficits. Moves all extremities spontaneously and on command. PSYCH: Normal mood, normal affect. No suicidal thoughts/ideations. No homicidal thoughts/ideations. No hallucinations. SKIN: Warm, dry, normal turgor, no rashes or lesions noted. ASSESSMENT AND PLAN: This patient is a 83-year-old male who presents with acute onset sharp chest pain in the setting of known thoracic aortic aneurysm and risk factors for coronary disease. Concern for pulmonary embolism versus acute [place] versus aortic dissection. 1. Will obtain labs, urine, cardiac enzymes, CT scan of the chest, and admit to the hospital. 2. Will continue to observe until admitted. TRAVEL OUTSIDE OF THE [place] IN LAST 30 DAYS: No - Related Data Allergies/Adverse Reactions: ciprofloxacin [From Cipro] Allergy (Intermediate, Verified 04/11/18 10:48) rash Heparin Analogues [Heparin Agents] Adverse Reaction (Severe, Verified 04/11/18 10:48) Hemorrhage codeine Adverse Reaction (Verified 11/15/18 20:30) Abnormal behavior Past Medical History - General Information source: Patient, Relative - and [id number] Cannot obtain history due to: Dementia - Social History Smoking Status: Former Smoker Chew tobacco use (# tins/day): No Drug Abuse: None Lives with: Family Family History: Hypertension Patient has suicidal ideation: No Patient has homicidal ideation: No - Past Medical History Cardiac Medical History: Reports: Hx Hypercholesterolemia, Hx Hypertension - meds > 30 years Denies: Hx Atrial Fibrillation, Hx Congestive Heart Failure, Hx Coronary Artery Disease, Hx Heart Attack, Hx Peripheral Vascular Disease, Hx Pulmonary Embolism, Hx Heart Murmur Pulmonary Medical History: Reports: Hx COPD, Hx Sleep Apnea - intolerant cpap Denies: Hx Asthma, Hx Bronchitis, Hx Pneumonia, Hx Respiratory Failure, Hx Tuberculosis EENT Medical History: Reports: None Neurological Medical History: Reports: Hx Cerebrovascular Accident - 2007, ruptured cerebral aneurysm, denies neuro deficits. Denies: Hx Seizures Endocrine Medical History: Reports: Hx Diabetes Mellitus Type 2 Renal/ Medical History: Reports: Hx Benign Prostatic Hyperplasia - nocturia x 5/night. Denies: Hx End Stage Renal Disease, Hx Kidney Stones, Hx Peritoneal Dialysis Malignancy Medical History: Reports None, Denies Hx Lung Cancer GI Medical History: Reports: Hx Gastroesophageal Reflux Disease - meds intermittently x 20 years, Hx Ulcer - Dx'ed approx 20 years ago. Denies: Hx Crohn's Disease, Hx Hiatal Hernia, Hx Irritable Bowel, Hx Liver Failure, Hx Pancreatitis Musculoskeletal Medical History: Reports Hx Arthritis, Denies Hx Fibromyalgia, Denies Hx Multiple Sclerosis, Denies Hx Muscular Dystrophy Skin Medical History: Reports None Psychiatric Medical History: Reports: Hx Dementia Traumatic Medical History: Reports: None. Denies: Hx Fractures Infectious Medical History: Reports: None Past Surgical History: Reports: Hx Appendectomy - 1942, Hx Orthopedic Surgery - B hip prostheses, Other - cataracts. Denies: Hx Bowel Surgery, Hx Cholecystectomy, Hx Colostomy, Hx Coronary Artery Bypass Graft, Hx Gastric Bypass Surgery, Hx Herniorrhaphy, Hx Pacemaker, Hx Tonsillectomy - Immunizations Immunizations up to date: Yes Hx Diphtheria, Pertussis, Tetanus Vaccination: Yes History of Influenza Vaccine for 05/2018 - 10/2018 Season: Unknown Hx Pneumococcal Vaccination: 08/09/09 Physical Exam - Vital signs Vitals: Temp Pulse Resp BP Pulse Ox 98.0 F 112 H 16 154/50 H 93 11/15/18 20:07 11/15/18 20:07 11/15/18 20:07 11/15/18 20:07 11/15/18 20:07 Course - Re-evaluation Re-evalutation: 11/16/18 02:35 CT chest is negative for acute dissection and a ventilation/perfusion scan is negative for pulmonary embolism. Initial troponin 0 0.117 with a repeat of 0.112, both of which are below the acute [place] cough but still elevated above normal. EKG continues to be without changes. Patient is admitted to the hospital. - Vital Signs Vital signs: Temp Pulse Resp BP Pulse Ox 98.0 F 112 H 31 H 144/121 H 96 11/15/18 20:07 11/15/18 20:07 11/15/18 23:01 11/15/18 23:00 11/15/18 23:01 - Laboratory Result Diagrams: 11/15/18 20:55 11/15/18 20:55 Laboratory results interpreted by me: 11/15/18 11/15/18 20:55 20:55 RBC 3.99 L Hgb 13.0 L MCV 98 H RDW 17.3 H Seg Neutrophils % 80.9 H Lymphocytes % 10.5 L Sodium 146.0 H Chloride 115 H Carbon Dioxide 21 L BUN 42 H Creatinine 2.03 H Est GFR ( Amer) 38 L Est GFR (Non-Af Amer) 32 L Creatine Kinase 54 L - Diagnostic Test Radiology reviewed: Image reviewed, Reports reviewed - EKG Interpretation by Me EKG shows normal: Sinus rhythm Rate: Tachycardia Rhythm: NSR Roark/QRS: No: Right axis deviation, Left axis deviation, RBBB, LBBB, IVCD, LAHB/LAFB, LPHB/LPFB, Bifasicular block Voltage: No: Increased voltage, Consistant with LVH, Decreased voltage, Throughout, Limb leads P Waves: No: ZARI, LAE, Absent, AV Dissociation, Other Heart block present: No: 1st Degree, Mobitz 1, Mobitz 2, CHB (3rd degree block) When compared to previous EKG there are: No significant change - Consults Dr. Francois Time consulted: 02:36 Consulted provider: will see as inpatient Discharge - Discharge Clinical Impression: Chest pain Qualifiers: Chest pain type: unspecified Qualified Code(s): R07.9 - Chest pain, unspecified Condition: Stable Disposition: ADMITTED INPATIENT Admitting Provider: Priscila Referrals: FE JESSICA MD [ACTIVE STAFF] - Follow up as needed
--- NOTE | 2018-11-16 | EKG REPORT ---
SEVERITY:- ABNORMAL ECG - SINUS OR ECTOPIC ATRIAL TACHYCARDIA RBBB AND LAFB : Confirmed by: Arin Reyes 16-Nov-2018 00:00:20
--- NOTE | 2018-11-16 01:53 | RADIOLOGY REPORT (SQ) ---
VENTILATION/PERFUSION SCAN HISTORY: Shortness of breath. METHOD: The patient received 32.2 mCi of Tc-99m DTPA aerosol via inhalation and 5.32 mCi of technetium-99m MAA intravenously. Multiple ventilation and perfusion views of the chest were obtained, respectively. FINDINGS: The perfusion images show homogeneous distribution of the radiotracer in both lungs. The ventilation images show near homogeneous distribution of the radiotracer in both lungs, with clumping in the central airways, predominantly left-sided. Radiotracer activity is also noted in the GI tract, secondary to swallowing. No mismatched ventilation/perfusion defects are identified. IMPRESSION: 1. Normal study by modified PIOPED criteria. 2. Findings suggestive of mild emphysema.
--- NOTE | 2018-11-16 02:04 | RADIOLOGY REPORT (SQ) ---
EXAM DESCRIPTION: [facility]: CT CHEST WITHOUT IV CONTRAST CLINICAL HISTORY: 83 years Male; Chest pain TECHNIQUE: CT of the chest without contrast All CT scans at this facility use dose modulation, iterative reconstruction, and/or weight based dosing when appropriate to reduce radiation dose to as low as reasonably achievable. COMPARISON: CT 07/14/2017. Report reviewed, but images not available. FINDINGS: Chest: Lungs: There are bilateral low-density pleural effusions, approximately 2.8 cm AP thickness. There is associated posterior atelectasis in both lower lobes. Lungs are hyperinflated with scattered lucencies typical for emphysema. No focal infiltrates. Mediastinum: Aorta: Scattered calcifications. In the distal arch there is a focal outpouching along the superior margin, maximum 4.1 cm diameter. This is similar to the previously described arch aneurysm. There is some marginal thrombus at the distal margin of the aneurysmal segment, with slight overhanging, suggesting localized chronic dissection. The descending thoracic aorta is 2.7 cm diameter. Proximal aorta is 4 cm. No enlarged mediastinal lymph nodes. There are mild coronary artery calcifications. No significant pericardial effusion. Heart size is normal. Bones:No acute bone findings. Gallbladder is surgically absent. No acute findings in the visualized upper abdomen. IMPRESSION: 1. Emphysema 2. Moderate bilateral low-density pleural effusions. There is associated partial atelectasis in both lower lobes, but no definite acute infiltrates. 3. 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
--- NOTE | 2018-11-16 07:54 | PDOC H&P ---
History of Present Illness Admission Date/PCP: 11/16/18 05:07 MARCELA LÓPEZ MD Patient complains of: chest pain History of Present Illness: SONIDO GARCIA is a 83 year old male with few weeks sharp frequent L chest pains unrelated to effort breathing meals. Worried about whose lymphoma has advanced. Dr Cartagena told him to get a heart doctor because of racing. 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 Endocrine Medical History: Reports: Diabetes Mellitus Type 2 Renal/ Medical History: Reports: Chronic Kidney Disease Malignancy Medical History: Reports: None GI Medical History: Reports: Gastroesophageal Reflux Disease - meds intermittently x 20 years Denies: Crohn's Disease, Hiatal Hernia Musculoskeltal Medical History: Reports: Arthritis Denies: Fibromyalgia Skin Medical History: Reports: None Psychiatric Medical History: Reports: Dementia Traumatic Medical History: Reports: None Infectious Medical History: Reports: None Past Surgical History Past Surgical History: Reports: Appendectomy - 194, Orthopedic Surgery - B hip prostheses, Other - cataracts Denies: Cholecystectomy, Colostomy, Coronary Artery Bypass Graft, Gastric Bypass Surgery, Herniorrhaphy, Pacemaker, Tonsillectomy Social History Lives with: Family Smoking Status: Former Smoker Last Time Smoked: 1989 Frequency of Alcohol Use: Occasional Hx Recreational Drug Use: No Hx Prescription Drug Abuse: No - Advance Directive Resuscitation Status: Full Code Family History Family History: Hypertension Parental Family History Reviewed: Yes Children Family History Reviewed: Yes Sibling(s) Family History Reviewed.: Yes Medication/Allergy Home Medications: Albuterol Sulfate [Ventolin Hfa] 2 puff IH QID 04/11/18 Amlodipine Besylate [Norvasc 10 mg Tablet] 10 mg PO QAM 04/11/18 Atorvastatin Calcium [Lipitor 20 mg Tablet] 20 mg PO QHS 04/11/18 Clonidine HCl [Catapres 0.1 mg Tablet] 0.1 mg PO Q12 04/11/18 Fluticasone/Salmeterol [Advair 250-50 Diskus 28 dose] 1 puff IH BID 04/11/18 Furosemide [Lasix 20 mg Tablet] 20 mg PO DAILY 04/11/18 Glimepiride [Amaryl 1 mg Tablet] 0.5 mg PO DAILY 04/11/18 Pantoprazole Sodium [Protonix] 40 mg PO [id number] 04/11/18 Valsartan [Diovan] 320 mg PO DAILY 04/11/18 Allergies/Adverse Reactions: ciprofloxacin [From Cipro] Allergy (Intermediate, Verified 04/11/18 10:48) rash Heparin Analogues [Heparin Agents] Adverse Reaction (Severe, Verified 04/11/18 10:48) Hemorrhage codeine Adverse Reaction (Verified 11/15/18 20:30) Abnormal behavior Review of Systems Constitutional: PRESENT: weight loss. ABSENT: fever(s), headache(s) Nose, Mouth, and Throat: ABSENT: sore throat Cardiovascular: PRESENT: chest pain, dyspnea on exertion. ABSENT: orthropnea Respiratory: PRESENT: cough Gastrointestinal: ABSENT: abdominal pain, constipation, diarrhea, hematochezia, vomiting Genitourinary: ABSENT: dysuria, hematuria Integumentary: ABSENT: rash Neurological: PRESENT: frequent falls Physical Exam Vital Signs: Temp Pulse Resp BP Pulse Ox 97.8 F 112 H 18 155/60 H 94 11/16/18 06:49 11/15/18 20:07 11/16/18 06:44 11/16/18 06:44 11/16/18 06:44 Intake & Output 11/14/18 11/15/18 11/16/18 07:59 07:59 07:59 Weight 166 lb 3.657 oz General appearance: PRESENT: no acute distress Eye exam: ABSENT: conjunctival injection, scleral icterus Mouth exam: PRESENT: moist, neck supple Neck exam: ABSENT: lymphadenopathy, tenderness, thyromegaly, tracheal deviation Respiratory exam: PRESENT: clear to auscultation ash Cardiovascular exam: ABSENT: diastolic murmur, irregular rhythm, systolic murmur GI/Abdominal exam: ABSENT: mass, organolmegaly, tenderness Extremities exam: ABSENT: pedal edema Neurological exam: PRESENT: oriented to situation Psychiatric exam: PRESENT: anxious Results Laboratory Results: Abnormal - 24 hr 11/15/18 11/15/18 20:55 20:55 RBC 3.99 L Hgb 13.0 L MCV 98 H RDW 17.3 H Seg Neutrophils % 80.9 H Lymphocytes % 10.5 L Sodium 146.0 H Chloride 115 H Carbon Dioxide 21 L BUN 42 H Creatinine 2.03 H Est GFR ( Amer) 38 L Est GFR (Non-Af Amer) 32 L Creatine Kinase 54 L Impressions: Chest X-Ray 11/15/18 20:02 IMPRESSION: 1. Minimal bilateral pleural effusions. 2. No focal infiltrates. 3. Thoracic aortic aneurysm, similar to prior exam. Lung Scan-VQ NM 11/15/18 23:53 IMPRESSION: 1. Normal study by modified PIOPED criteria. 2. Findings suggestive of mild emphysema. Chest CT 11/16/18 00:10 IMPRESSION: 1. Emphysema 2. Moderate bilateral low-density pleural effusions. There is associated partial atelectasis in both lower lobes, but no definite acute infiltrates. 3. 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 Assessment & Plan - Diagnosis (1) Precordial pain Is this a current diagnosis for this admission?: Yes Plan: troponins. Wants cardiology consult. 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 Qualifiers: Diabetes mellitus perinatal coordinator insulin use: without assisted use Chronic kidney disease stage: stage 4 (severe) Qualified Code(s): E11.22 - Type 2 diabetes mellitus with diabetic chronic kidney disease; N18.4 - Chronic kidney disease, stage 4 (severe); N18.4 - Chronic kidney disease, stage 4 (severe); N18.4 - Chronic kidney disease, stage 4 (severe); N18.4 - Chronic kidney disease, stage 4 (severe) Is this a current diagnosis for this admission?: Yes (3) Incomplete paraplegia Is this a current diagnosis for this admission?: Yes (4) Panlobular emphysema Is this a current diagnosis for this admission?: Yes (5) Alzheimer's disease with late onset Qualifiers: Dementia behavioral disturbance: without behavioral disturbance Qualified Code(s): G30.1 - Alzheimer's disease with late onset; F02.80 - Dementia in other diseases classified elsewhere without behavioral disturbance; F02.80 - Dementia in other diseases classified elsewhere without behavioral disturbance; F02.80 - Dementia in other diseases classified elsewhere without behavioral disturbance Is this a current diagnosis for this admission?: Yes (6) Obstructive sleep apnea Is this a current diagnosis for this admission?: Yes - Inpatient Certification Based on my medical assessment, after consideration of the patient's comorbidities, presenting symptoms, or acuity I expect that the services needed warrant INPATIENT care.: Yes I certify that my determination is in accordance with my understanding of Medicare's requirements for reasonable and necessary INPATIENT services [42 CFR 412.3e].: Yes Medical Necessity: Failure to Improve With Outpatient Therapy, Significant Comorbidiites Make Outpatient Treatment Too Risky, Need Close Monitoring Due to Risk of Patient Decompensation, Need For Continuous Telemetry Monitoring, Risk of Complication if Not Cared For in Hospital, Risk of Diagnosis Which Will Require Inpatient Eval/Care/Monitoring
[2018-11-16] MEDS: ASPIRIN 81 MG TABLET, CHEWABLE PO SCH (11:34)
--- NOTE | 2018-11-16 18:04 | XCELERA REPORT ---
[address] [address] Transthoracic Echocardiogram Report Name: SONIDO GARCIA Age: 83 yrs Gender: Male : 1935 Patient Status: Inpatient Patient Location: [place] [address]^A Study Date: 11/16/2018 09:30 AM Height: 66 in Weight: 166 lb BSA: 1.8 m2 Procedure: A complete two-dimensional transthoracic echocardiogram was performed (2D, M-mode, spectral and color flow Doppler). The study was technically difficult with many images being suboptimal in quality. Reason For Study: chest pain Ordering Physician: MARCELA LÓPEZ Performed By: Jennifer Porter Interpretation Summary LV EF is 35% Left ventricular systolic function is moderately reduced. There is mild concentric left ventricular hypertrophy. The left ventricle is borderline dilated. Doppler measurements suggest pseudonormalized left ventricular relaxation, which is associated with grade II/IV or mild to moderate diastolic dysfunction Regional wall motion abnormalities cannot be excluded due to limited visualization. The right ventricular systolic function is normal. The left atrium is mildly dilated. The right atrium is normal. There is a mild amount of mitral regurgitation There is no mitral valve stenosis. There is a moderate to severe amount of aortic regurgitation There is no aortic valve stenosis There is a mild amount of tricuspid regurgitation There is mild pulmonary hypertension by echo Right ventricular systolic pressure is estimated to be elevated at 30-40mmHg. The aortic root is not well visualized. The inferior vena cava appeared normal and decreased > 50% with respiration (RAP 5-10 mmHg) Minimal pericardial effusion. MMode/2D Measurements & Calculations RVDd: 3.3 cm LVIDd: 5.4 cm FS: 14.7 % Ao root diam: IVSd: 1.1 cm LVIDs: 4.6 cm EDV(Teich): 3.2 cm 140.6 ml Ao root area: LVPWd: 1.1 cm ESV(Teich): 8.2 cm2 97.1 ml LA dimension: EF(Teich): 30.9 % 3.4 cm LVLd ap4: 8.9 cm SV(MOD-sp4): EDV(MOD-sp4): 65.0 ml 183.0 ml LVLs ap4: 8.5 cm ESV(MOD-sp4): 118.0 ml EF(MOD-sp4): 35.5 % Doppler Measurements & Calculations MV E max yunior: MV P1/2t max yunior: Ao V2 max: AI max yunior: 114.1 cm/sec 114.1 cm/sec 198.8 cm/sec 457.8 cm/sec MV A max yunior: MV P1/2t: 35.9 msec Ao max PG: AI max P.5 cm/sec MVA(P1/2t): 6.1 cm2 15.8 mmHg 83.8 mmHg MV E/A: 1.4 MV dec slope: AI dec slope: 1127 cm/sec2 929.9 cm/sec2 AI P1/2t: MV dec time: 0.12 sec 119.0 msec LV V1 max PG: PA V2 max: PI end-d yunior: TR max yunior: 8.1 mmHg 87.9 cm/sec 194.3 cm/sec 290.8 cm/sec LV V1 max: PA max P.1 mmHg TR max P.0 cm/sec 33.8 mmHg AV P1/2t-pr_phl: MV P1/2t-pr_phl: 119.0 msec 35.9 msec Left Ventricle The left ventricle is borderline dilated. There is mild concentric left ventricular hypertrophy. Left ventricular systolic function is moderately reduced. LV EF is 35%. Doppler measurements suggest pseudonormalized left ventricular relaxation, which is associated with grade II/IV or mild to moderate diastolic dysfunction. Regional wall motion abnormalities cannot be excluded due to limited visualization. Right Ventricle The right ventricle is grossly normal size. There is normal right ventricular wall thickness. The right ventricular systolic function is normal. Atria The right atrium is normal. The left atrium is mildly dilated. Interarterial septum not well visualized and not well dopplered. Cannot comment on ASD/PFO presence. Mitral Valve There is mild mitral leaflet calcification. There is mild mitral annular calcification. There is no mitral valve stenosis. There is a mild amount of mitral regurgitation. Aortic Valve The aortic valve is not well visualized secondary to technical limitations. There is no aortic valve stenosis. There is a moderate to severe amount of aortic regurgitation. Tricuspid Valve The tricuspid valve is not well visualized, but is grossly normal. There is no tricuspid stenosis. There is a mild amount of tricuspid regurgitation. There is mild pulmonary hypertension by echo. Right ventricular systolic pressure is estimated to be elevated at 30-40mmHg. Pulmonic Valve The pulmonic valve is not well visualized. Great Vessels The aortic root is not well visualized. The inferior vena cava appeared normal and decreased > 50% with respiration (RAP 5-10 mmHg). Effusions Minimal pericardial effusion. : MARCELA LÓPEZ > Arin Reyes
[2018-11-16] MEDS ORDERED: CLONIDINE HCL 0.2 MG TABLET ONE (23:59)
[2018-11-16] MEDS ORDERED: FUROSEMIDE INJ/PF 20 MG/2 ML SDV ONE (23:59)
[2018-11-17] MEDS: IPRATROPIUM/ALBUTEROL 0.5-2.5 MG/3 ML AMPUL NEB SCH ×6 (00:07→20:20)
[2018-11-17] MEDS ORDERED: CLONIDINE HCL 0.1 MG TABLET PO ONE (00:10)
[2018-11-17] MEDS ORDERED: DILTIAZEM HCL 60 MG TABLET PO ONE (00:10)
[2018-11-17] MEDS ORDERED: FUROSEMIDE INJ/PF 20 MG/2 ML SDV IV ONE (00:15)
[2018-11-17] MEDS: DILTIAZEM HCL 60 MG TABLET PO SCH ×3 (05:20→22:06)
--- NOTE | 2018-11-17 07:14 | PDOC PROGRESS REPORT ---
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 No cardiology input since then. Now no complaints but confused. Reason For Visit: CHEST PAIN Physical Exam Vital Signs: Temp Pulse Resp BP Pulse Ox 96.8 F L 100 16 150/45 H 96 11/17/18 04:00 11/17/18 04:00 11/17/18 04:00 11/17/18 04:00 11/17/18 04:00 Intake & Output 11/15/18 11/16/18 11/17/18 07:59 07:59 07:59 Intake Total 600 Output Total 600 Balance 0 Weight 166 lb 3.657 oz 161 lb 2.526 oz General appearance: PRESENT: mild distress Respiratory exam: PRESENT: clear to auscultation ash Cardiovascular exam: ABSENT: diastolic murmur, irregular rhythm, systolic murmur GI/Abdominal exam: ABSENT: mass, organolmegaly, tenderness Neurological exam: ABSENT: oriented to situation Psychiatric exam: PRESENT: agitated Results Laboratory Results: 11/15/18 20:55 11/15/18 20:55 11/15/18 11/15/18 11/16/18 20:55 20:55 00:29 Creatine Kinase 54 L Troponin I 0.117 0.112 11/16/18 11/16/18 11/16/18 06:48 12:18 18:32 Creatine Kinase Troponin I 0.105 0.089 0.089 Impressions: Chest X-Ray 11/15/18 20:02 IMPRESSION: 1. Minimal bilateral pleural effusions. 2. No focal infiltrates. 3. Thoracic aortic aneurysm, similar to prior exam. Lung Scan-VQ UT 11/15/18 23:53 IMPRESSION: 1. Normal study by modified PIOPED criteria. 2. Findings suggestive of mild emphysema. Chest CT 11/16/18 00:10 IMPRESSION: 1. Emphysema 2. Moderate bilateral low-density pleural effusions. There is associated partial atelectasis in both lower lobes, but no definite acute infiltrates. 3. 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 Assessment & Plan - Diagnosis (1) Chronic combined systolic and diastolic heart failure Is this a current diagnosis for this admission?: Yes Plan: L [facility] normal. Mr mild. Ddf2. Pw11mm. Lv46mm. Ej35. Ar severe. Rvp35. Avoiding pj arb because of ckd. Avoiding beta azul because of emphysema. Switch amlodipine to diltiazem for tachycardia. Resumed clonidine and furosemide 20mg. Dr Reyes read echo but will be out of town. Consult Dr Koo. (2) Aortic regurgitation Qualifiers: Cardiac valve disease etiology: nonrheumatic Qualified Code(s): I35.1 - Nonrheumatic aortic (valve) insufficiency Is this a current diagnosis for this admission?: Yes (3) 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 Is this a current diagnosis for this admission?: Yes (4) Precordial pain Is this a current diagnosis for this admission?: Yes Plan: troponins nondiagnostic (5) Type 2 diabetes mellitus with diabetic chronic kidney disease Qualifiers: Diabetes mellitus penitentiary insulin use: without mechanical oxidizer use Chronic kidney disease stage: stage 4 (severe) Qualified Code(s): E11.22 - Type 2 diabetes mellitus with diabetic chronic kidney disease; N18.4 - Chronic kidney disease, stage 4 (severe) Is this a current diagnosis for this admission?: Yes (6) Incomplete paraplegia Is this a current diagnosis for this admission?: Yes (7) Panlobular emphysema Is this a current diagnosis for this admission?: Yes (8) Obstructive sleep apnea Is this a current diagnosis for this admission?: Yes (9) Alzheimer's disease with late onset Qualifiers: Dementia behavioral disturbance: without behavioral disturbance Qualified Code(s): G30.1 - Alzheimer's disease with late onset; F02.80 - Dementia in other diseases classified elsewhere without behavioral disturbance Is this a current diagnosis for this admission?: Yes - Inpatient Certification Medical Necessity: Failure to Improve With Outpatient Therapy, Significant Comorbidiites Make Outpatient Treatment Too Risky, Need Close Monitoring Due to Risk of Patient Decompensation, Need For Continuous Telemetry Monitoring, Need for Nebulizer Therapy and Monitoring of Response, Risk of Complication if Not Cared For in Hospital, Risk of Diagnosis Which Will Require Inpatient E calvin/Care/Monitoring
[2018-11-17] MEDS: PANTOPRAZOLE SODIUM 40 MG TABLET.DR PO SCH (08:04)
[2018-11-17] MEDS: GLIMEPIRIDE 1 MG TABLET PO SCH (09:08)
[2018-11-17] MEDS: ASPIRIN 81 MG TABLET, CHEWABLE PO SCH (09:09)
[2018-11-17] MEDS: ALLOPURINOL 300 MG TABLET PO SCH (09:23)
[2018-11-17] MEDS ORDERED: CLONIDINE HCL 0.1 MG TABLET PO SCH ×2 (10:00)
[2018-11-17] MEDS ORDERED: ASPIRIN 81 MG TABLET, ENT COATED PO SCH (10:00)
[2018-11-17] MEDS ORDERED: FUROSEMIDE INJ/PF 20 MG/2 ML SDV IV SCH (10:00)
--- NOTE | 2018-11-17 11:02 | EKG REPORT ---
SEVERITY:- ABNORMAL ECG - SINUS TACHYCARDIA WITH APCs RBBB AND LAFB : Confirmed by: Arin Reyes 17-Nov-2018 11:01:58
[2018-11-17] MEDS: ATORVASTATIN CALCIUM 20 MG TABLET PO SCH (22:06)
[2018-11-18] MEDS: IPRATROPIUM/ALBUTEROL 0.5-2.5 MG/3 ML AMPUL NEB SCH ×6 (00:37→20:16)
--- NOTE | 2018-11-18 06:50 | PDOC PROGRESS REPORT ---
Subjective Progress Note for:: 11/18/18 Subjective:: wants home Reason For Visit: ACUTE ON CHRONIC CHF Physical Exam Vital Signs: Temp Pulse Resp BP Pulse Ox 97.6 F 92 16 136/45 H 93 11/18/18 03:43 11/18/18 03:51 11/18/18 03:51 11/18/18 03:43 11/18/18 03:51 Intake & Output 11/16/18 11/17/18 11/18/18 07:59 07:59 07:59 Intake Total 600 1910 Output Total 600 Balance 0 1910 Weight 166 lb 3.657 oz 161 lb 2.526 oz 164 lb 0.383 oz General appearance: PRESENT: no acute distress Respiratory exam: PRESENT: clear to auscultation ash Cardiovascular exam: ABSENT: diastolic murmur, irregular rhythm, systolic murmur GI/Abdominal exam: ABSENT: mass, organolmegaly, tenderness Extremities exam: ABSENT: pedal edema Neurological exam: ABSENT: oriented to situation Psychiatric exam: PRESENT: anxious Results Laboratory Results: Abnormal - 24 hr 11/17/18 11:32 POC Glucose 132 H Impressions: Chest X-Ray 11/15/18 20:02 IMPRESSION: 1. Minimal bilateral pleural effusions. 2. No focal infiltrates. 3. Thoracic aortic aneurysm, similar to prior exam. Lung Scan-VQ NM 11/15/18 23:53 IMPRESSION: 1. Normal study by modified PIOPED criteria. 2. Findings suggestive of mild emphysema. Chest CT 11/16/18 00:10 IMPRESSION: 1. Emphysema 2. Moderate bilateral low-density pleural effusions. There is associated partial atelectasis in both lower lobes, but no definite acute infiltrates. 3. 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 Assessment & Plan - Diagnosis (1) Chronic combined systolic and diastolic heart failure Is this a current diagnosis for this admission?: Yes Plan: awaiting cardiology consult proBnp bmp. Switched furosemide back to po. 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 Is this a current diagnosis for this admission?: Yes (4) Precordial pain Is this a current diagnosis for this admission?: Yes (5) Type 2 diabetes mellitus with diabetic chronic kidney disease Qualifiers: Diabetes mellitus intermediate insulin use: without intermediate use Chronic kidney disease stage: stage 4 (severe) Qualified Code(s): E11.22 - Type 2 diabetes mellitus with diabetic chronic kidney disease; N18.4 - Chronic kidney disease, stage 4 (severe) Is this a current diagnosis for this admission?: Yes (6) Incomplete paraplegia Is this a current diagnosis for this admission?: Yes (7) Panlobular emphysema Is this a current diagnosis for this admission?: Yes (8) Obstructive sleep apnea Is this a current diagnosis for this admission?: Yes (9) Alzheimer's disease with late onset Qualifiers: Dementia behavioral disturbance: without behavioral disturbance Qualified Code(s): G30.1 - Alzheimer's disease with late onset; F02.80 - Dementia in other diseases classified elsewhere without behavioral disturbance Is this a current diagnosis for this admission?: Yes Plan: confused last 2 ams.
[2018-11-18] MEDS: PANTOPRAZOLE SODIUM 40 MG TABLET.DR PO SCH (08:54)
[2018-11-18 09:06] LABS: ANION GAP 11 (5-19); BLOOD UREA NITROGEN 39 mg/dL (7-20); CALCIUM 9.2 mg/dL (8.4-10.2); CARBON DIOXIDE 21 mmol/L (22-30); CHLORIDE 111 mmol/L (98-107); GLUCOSE 151 mg/dL (75-110); SODIUM 143.4 mmol/L (137-145)
[2018-11-18] MEDS ORDERED: DILTIAZEM HCL 180 MG CAPSULE.CR PO SCH (10:00)
[2018-11-18] MEDS: GLIMEPIRIDE 1 MG TABLET PO SCH (10:08)
[2018-11-18] MEDS: ASPIRIN 81 MG TABLET, CHEWABLE PO SCH (10:08)
[2018-11-18] MEDS: FUROSEMIDE 20 MG TABLET PO SCH (10:08)
[2018-11-18] MEDS: ALLOPURINOL 300 MG TABLET PO SCH (10:08)
[2018-11-18] MEDS ORDERED: QUETIAPINE FUMARATE 100 MG TABLET PO PRN (17:48)
[2018-11-18] MEDS ORDERED: HALOPERIDOL LACTATE INJ 5 MG/1 ML VIAL ONE (20:46)
[2018-11-18] MEDS: ATORVASTATIN CALCIUM 20 MG TABLET PO SCH (21:29)
[2018-11-18] MEDS ORDERED: HALOPERIDOL LACTATE INJ 5 MG/1 ML VIAL IM ONE (21:30)
[2018-11-18] MEDS ORDERED: METOPROLOL SUCCINATE 25 MG TAB.SR.24H PO SCH ×2 (22:00→22:15)
--- NOTE | 2018-11-18 22:05 | Progress Note ---
Provider Note Provider Note: CARDIOLOGY PROGRESS NOTE by Dr. Jasmyne Marks. On 11/18/2018. SUBJECTIVE: The patient denies any further chest pain or discomfort. There is no PND orthopnea. There is no shortness of breath. He denies any wheezing. There is no cough or sputum production. There is no PND orthopnea. There is no TIA CVA symptoms. There is no leg edema. There is no arrhythmia seen on the monitor. The patient is pleasantly confused. at bedside and does offer some degree of history. The sharp intermittent few seconds chest pain which is recurrent for over a period of half an hour or so in the past. He had such a workup for this in [address] [facility], and was found to have no significant pathology causing it although he had a history of what seems to be a type a ascending aortic dissection, this is resulted in a 4 cm thoracic aneurysm with extramural thrombosed segment. There is no history of coronary artery disease or AR. No recent symptoms of acute exacerbation of COPD. states that he also has a aneurysm in the artery to the kidney and also aneurysm in the artery in the back of the head. There is no intracerebral hemorrhage by history. There is no recent fever chills or rigors. PHYSICAL EXAMINATION: The patient is well-built and well-nourished. He is in no acute distress although is confused Selected Entries 11/18/18 13:00 Temperature 97.6 F Temperature Oral Source Pulse Rate 98 Respiratory 20 Rate Blood Pressure 132/41 H [Left Upper Arm ] Blood Pressure 71 Mean [Left Upper Arm] Blood Pressure Supine Position [Left Upper Arm] O2 Sat by Pulse 94 Oximetry Oxygen Delivery Room Air Method ( includes room air) HEAD: Is atraumatic normocephalic. EYES: Pupils are equal round regular reactive to light accommodation. Extraocular movements are normal. There is no clinical pallor. There is no scleral icterus. EARS: Tympanic membranes are intact. NOSE: There is no deviated nasal septum. There is no inflammation of the nasal mucous membrane. MOUTH: Mucous membranes of mouth are moist tongue is moist. There is no ulcers. There is no inflammation of the gingiva. There is no bleeding from the gums. THROAT: There is no redness of the oropharynx. There is no exudates in the throat. SKIN: There is no skin rashes or skin lesions. There is no petechia or ecchymosis. NECK: Is supple. There is no JVD. Carotids are equal there is no bruits. There is no lymphadenopathy. There is no goiter. There is no accessory muscle respiration use.. Trachea central. LUNGS: There is diminished air entry prolonged expiration. Lungs are clear without any rhonchi rales or wheezing. On palpation there is no chest wall tenderness. On percussion there is hyperresonance. HEART: S1-S2 is heard there is no S3 gallop. There is no S4 gallop. There is systolic murmur left sternal border and the apex there is no rub. ABDOMEN: Soft. There is no hepatosplenomegaly. Bowel sounds are well heard. EXTREMITIES: Femorals are slightly diminished. There is no femoral bruits. Leg pulses are diminished. There is no pedal edema. There is no DVT or synovitis. There is no calf tenderness. There is no cyanosis or clubbing. FLOOR CARE TECHNICIAN: The patient is conscious awake alert is oriented to person but not to place or time. There is no focal deficits. PSYCHIATRIC: The patient does not appear to be agitated or anxious. 11/18/18 11/18/18 07:30 07:30 Sodium 143.4 Potassium 4.0 Chloride 111 H Carbon Dioxide 21 L Anion Gap 11 BUN 39 H Creatinine 1.94 H Est GFR (Non-Af Amer) 33 L Glucose 151 H Calcium 9.2 NT-Pro-B Natriuret Pep 03592 H IMPRESSION/RECOMMENDATION: 1. Sharp intermittent chest pains: This is noncardiac chest pain. Doubt if this is related to the patient's thoracic ascending aortic aneurysm. Note that there is no there is been no recurrence. 2. Hypertension: Blood pressure well controlled. 3. Cardiomyopathy with moderately reduced LV ejection fraction. Most likely dilated cardiomyopathy. Would recommend starting the patient on Toprol-XL and also lisinopril. Would stop the patient's Cardizem. The patient does not appear to be fluid overloaded and hence would use the patient's diuretics on a as needed basis. 4. Chronic kidney disease stage III: Would avoid nephrotoxic drugs. Review of starting the patient on lisinopril would follow the patient's renal function. 5. Diabetes mellitus with diabetic nephropathy. Continue antidiabetic treatment. Continue Accu-Chek. P and treat accordingly. 6. COPD: Seems to be stable at baseline with no acute exacerbation. 7. Dementia: Note in spite of the patient dementia he is pleasantly confused, and is not having any violent behavior. He does not appear to be agitated. 8. History of ascending thoracic aortic aneurysm with thrombosed extramural. Clinically this does not seem to be causing any untoward effect His medications reviewed. Medications added. 40 minutes spent on this patient with more than 50% of time spent in direct patient care. The case has been discussed with Dr. persaud on the telephone. The patient is a full code. His is his surrogate healthcare decision maker
[2018-11-18] MEDS: LISINOPRIL 5 MG TABLET PO SCH (23:01)
[2018-11-18] MEDS: METOPROLOL SUCCINATE 50 MG TAB.SR.24H PO SCH (23:02)
[2018-11-19] MEDS: IPRATROPIUM/ALBUTEROL 0.5-2.5 MG/3 ML AMPUL NEB SCH ×6 (00:02→20:55)
[2018-11-19 08:11] LABS: ANION GAP 10 (5-19); BLOOD UREA NITROGEN 37 mg/dL (7-20); CALCIUM 9.2 mg/dL (8.4-10.2); CARBON DIOXIDE 22 mmol/L (22-30); CHLORIDE 112 mmol/L (98-107); GLUCOSE 96 mg/dL (75-110); POTASSIUM 4.1 mmol/L (3.6-5.0); SODIUM 143.5 mmol/L (137-145)
[2018-11-19] MEDS: PANTOPRAZOLE SODIUM 40 MG TABLET.DR PO SCH (09:53)
--- NOTE | 2018-11-19 10:04 | PDOC PROGRESS REPORT ---
Subjective Progress Note for:: 11/19/18 Subjective:: lethargic now. Combative last night. Seroquel 100 failed. Haldol 10mg IM worked finally. Choked on egg this am. Reason For Visit: ACUTE ON CHRONIC CHF Physical Exam Vital Signs: Temp Pulse Resp BP Pulse Ox 97.4 F 92 20 134/51 H 95 11/19/18 07:20 11/19/18 08:22 11/19/18 08:22 11/19/18 07:20 11/19/18 08:22 Intake & Output 11/18/18 11/19/18 11/20/18 07:59 07:59 07:59 Intake Total 1910 642 Balance 1910 642 Weight 164 lb 0.383 oz 163 lb 9.328 oz General appearance: PRESENT: no acute distress Respiratory exam: PRESENT: clear to auscultation ash Cardiovascular exam: ABSENT: diastolic murmur, irregular rhythm, systolic murmur GI/Abdominal exam: ABSENT: mass, organolmegaly, tenderness Extremities exam: ABSENT: pedal edema Neurological exam: PRESENT: altered Results Laboratory Results: 11/15/18 20:55 11/19/18 07:30 11/19/18 07:30 Sodium 143.5 Potassium 4.1 Chloride 112 H Carbon Dioxide 22 Anion Gap 10 BUN 37 H Creatinine 2.11 H Est GFR ( Amer) 37 L Est GFR (Non-Af Amer) 30 L Glucose 96 Calcium 9.2 11/18/18 07:30 Creatine Kinase Troponin I NT-Pro-B Natriuret Pep 46753 H Impressions: Chest X-Ray 11/15/18 20:02 IMPRESSION: 1. Minimal bilateral pleural effusions. 2. No focal infiltrates. 3. Thoracic aortic aneurysm, similar to prior exam. Lung Scan-VQ NM 11/15/18 23:53 IMPRESSION: 1. Normal study by modified PIOPED criteria. 2. Findings suggestive of mild emphysema. Chest CT 11/16/18 00:10 IMPRESSION: 1. Emphysema 2. Moderate bilateral low-density pleural effusions. There is associated partial atelectasis in both lower lobes, but no definite acute infiltrates. 3. 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 Assessment & Plan - Diagnosis (1) Alzheimer's disease with late onset Qualifiers: Dementia behavioral disturbance: without behavioral disturbance Qualified Code(s): G30.1 - Alzheimer's disease with late onset; F02.80 - Dementia in other diseases classified elsewhere without behavioral disturbance Is this a current diagnosis for this admission?: Yes Plan: seroquel 100bid (2) Chronic combined systolic and diastolic heart failure Is this a current diagnosis for this admission?: Yes Plan: pro naturetic peptide 16k. Dr Koo suggested stopping furosemide 20, but I will continue it for now. Appreciate addition of metoprolol and pj. 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 truck mechanic use Chronic kidney disease stage: stage 4 (severe) Qualified Code(s): E11.22 - Type 2 diabetes mellitus with diabetic chronic kidney disease; N18.4 - Chronic kidney disease, stage 4 (severe) Is this a current diagnosis for this admission?: Yes (7) Incomplete paraplegia Is this a current diagnosis for this admission?: Yes (8) Panlobular emphysema Is this a current diagnosis for this admission?: Yes (9) Obstructive sleep apnea Is this a current diagnosis for this admission?: Yes - Inpatient Certification Medical Necessity: Failure to Improve With Outpatient Therapy, Significant Comorbidiites Make Outpatient Treatment Too Risky, Need Close Monitoring Due to Risk of Patient Decompensation, Need For Continuous Telemetry Monitoring, Risk of Complication if Not Cared For in Hospital, Risk of Diagnosis Which Will Require Inpatient Eval/Care/Monitoring
[2018-11-19] MEDS: ALLOPURINOL 300 MG TABLET PO SCH (10:11)
[2018-11-19] MEDS: GLIMEPIRIDE 1 MG TABLET PO SCH (10:11)
[2018-11-19] MEDS: ASPIRIN 81 MG TABLET, CHEWABLE PO SCH (10:11)
[2018-11-19] MEDS: LISINOPRIL 5 MG TABLET PO SCH ×2 (10:12→22:10)
[2018-11-19] MEDS: FUROSEMIDE 20 MG TABLET PO SCH (10:12)
[2018-11-19] MEDS: METOPROLOL SUCCINATE 50 MG TAB.SR.24H PO SCH ×2 (10:13→22:10)
[2018-11-19] MEDS: ATORVASTATIN CALCIUM 20 MG TABLET PO SCH (22:10)
[2018-11-20] MEDS: IPRATROPIUM/ALBUTEROL 0.5-2.5 MG/3 ML AMPUL NEB SCH ×6 (00:09→20:36)
--- NOTE | 2018-11-20 07:52 | PDOC PROGRESS REPORT ---
Subjective Progress Note for:: 11/20/18 Subjective:: no pain or dyspnea. Wants home but doubts she can manage him with hs agitation. Confused but not agitated last night on seroquel 100bid. Wrist restraints kept in bed. Reason For Visit: ACUTE ON CHRONIC CHF Physical Exam Vital Signs: Temp Pulse Resp BP Pulse Ox 97.7 F 98 16 147/60 H 95 11/19/18 19:51 11/20/18 04:12 11/20/18 04:12 11/19/18 19:51 11/20/18 04:12 Intake & Output 11/18/18 11/19/18 11/20/18 07:59 07:59 07:59 Intake Total 1910 642 360 Output Total 350 Balance 1910 642 10 Weight 164 lb 0.383 oz 163 lb 9.328 oz 160 lb 0.889 oz General appearance: PRESENT: mild distress Respiratory exam: PRESENT: clear to auscultation ash Cardiovascular exam: PRESENT: diastolic murmur, systolic murmur. ABSENT: irregular rhythm Murmur grade: 1 GI/Abdominal exam: ABSENT: mass, organolmegaly, tenderness Extremities exam: ABSENT: pedal edema Neurological exam: ABSENT: oriented to time, oriented to situation Psychiatric exam: PRESENT: anxious Results Laboratory Results: 11/15/18 20:55 11/19/18 07:30 Impressions: Chest X-Ray 11/15/18 20:02 IMPRESSION: 1. Minimal bilateral pleural effusions. 2. No focal infiltrates. 3. Thoracic aortic aneurysm, similar to prior exam. Lung Scan-VQ NM 11/15/18 23:53 IMPRESSION: 1. Normal study by modified PIOPED criteria. 2. Findings suggestive of mild emphysema. Chest CT 11/16/18 00:10 IMPRESSION: 1. Emphysema 2. Moderate bilateral low-density pleural effusions. There is associated partial atelectasis in both lower lobes, but no definite acute infiltrates. 3. 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 Assessment & Plan - Diagnosis (1) Alzheimer's disease with late onset Qualifiers: Dementia behavioral disturbance: without behavioral disturbance Qualified Code(s): G30.1 - Alzheimer's disease with late onset; F02.80 - Dementia in other diseases classified elsewhere without behavioral disturbance Is this a current diagnosis for this admission?: Yes Plan: considered donepezil but interacts with seroquel. 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 Stop glimepiride 0.5mg (7) Incomplete paraplegia Is this a current diagnosis for this admission?: Yes (8) Panlobular emphysema Is this a current diagnosis for this admission?: Yes (9) Obstructive sleep apnea Is this a current diagnosis for this admission?: Yes - Inpatient Certification Medical Necessity: Failure to Improve With Outpatient Therapy, Significant Comorbidiites Make Outpatient Treatment Too Risky, Need Close Monitoring Due to Risk of Patient Decompensation, Need For Continuous Telemetry Monitoring, Need for Nebulizer Therapy and Monitoring of Response, Risk of Complication if Not Cared For in Hospital, Risk of Diagnosis Which Will Require Inpatient Eval/Care /Monitoring
[2018-11-20 08:33] LABS: ANION GAP 11 (5-19); BLOOD UREA NITROGEN 40 mg/dL (7-20); CALCIUM 9.5 mg/dL (8.4-10.2); CARBON DIOXIDE 17 mmol/L (22-30); CHLORIDE 116 mmol/L (98-107); GLUCOSE 85 mg/dL (75-110); POTASSIUM 4.4 mmol/L (3.6-5.0); SODIUM 144.4 mmol/L (137-145)
[2018-11-20] MEDS: PANTOPRAZOLE SODIUM 40 MG TABLET.DR PO SCH (08:54)
[2018-11-20] MEDS: LISINOPRIL 5 MG TABLET PO SCH ×2 (10:20→22:33)
[2018-11-20] MEDS: ASPIRIN 81 MG TABLET, CHEWABLE PO SCH (10:20)
[2018-11-20] MEDS: ALLOPURINOL 300 MG TABLET PO SCH (10:21)
[2018-11-20] MEDS: FUROSEMIDE 20 MG TABLET PO SCH (10:21)
[2018-11-20] MEDS: METOPROLOL SUCCINATE 50 MG TAB.SR.24H PO SCH ×2 (10:21→22:33)
[2018-11-20] MEDS: QUETIAPINE FUMARATE 100 MG TABLET PO SCH (17:29)
[2018-11-20] MEDS: ATORVASTATIN CALCIUM 20 MG TABLET PO SCH (22:33)
[2018-11-21] MEDS: IPRATROPIUM/ALBUTEROL 0.5-2.5 MG/3 ML AMPUL NEB SCH ×7 (00:09→23:55)
--- NOTE | 2018-11-21 07:08 | PDOC PROGRESS REPORT ---
Subjective Progress Note for:: 11/21/18 Subjective:: no pain or dyspnea. Nurse reports confusion not agitation. Wrists restrained to prevent falls. Reason For Visit: ACUTE ON CHRONIC CHF Physical Exam Vital Signs: Temp Pulse Resp BP Pulse Ox 98.2 F 98 16 124/49 L 95 11/20/18 23:43 11/21/18 04:25 11/21/18 04:25 11/20/18 23:43 11/21/18 04:25 Intake & Output 11/19/18 11/20/18 11/21/18 07:59 07:59 07:59 Intake Total 642 360 360 Output Total 350 Balance 642 10 360 Weight 163 lb 9.328 oz 160 lb 0.889 oz 161 lb 6.054 oz General appearance: PRESENT: no acute distress Respiratory exam: PRESENT: clear to auscultation ash Cardiovascular exam: ABSENT: diastolic murmur, irregular rhythm, systolic murmur GI/Abdominal exam: ABSENT: mass, organolmegaly, tenderness Extremities exam: ABSENT: pedal edema Neurological exam: ABSENT: oriented to time, oriented to situation Psychiatric exam: PRESENT: appropriate affect Results Laboratory Results: 11/15/18 20:55 11/20/18 07:40 11/20/18 07:40 Sodium 144.4 Potassium 4.4 Chloride 116 H Carbon Dioxide 17 L Anion Gap 11 BUN 40 H Creatinine 2.11 H Est GFR ( Amer) 37 L Est GFR (Non-Af Amer) 30 L Glucose 85 Calcium 9.5 Impressions: Chest X-Ray 11/15/18 20:02 IMPRESSION: 1. Minimal bilateral pleural effusions. 2. No focal infiltrates. 3. Thoracic aortic aneurysm, similar to prior exam. Lung Scan-VQ NM 11/15/18 23:53 IMPRESSION: 1. Normal study by modified PIOPED criteria. 2. Findings suggestive of mild emphysema. Chest CT 11/16/18 00:10 IMPRESSION: 1. Emphysema 2. Moderate bilateral low-density pleural effusions. There is associated partial atelectasis in both lower lobes, but no definite acute infiltrates. 3. 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 Assessment & Plan - Diagnosis (1) Alzheimer's disease with late onset Qualifiers: Dementia behavioral disturbance: without behavioral disturbance Qualified Code(s): G30.1 - Alzheimer's disease with late onset; F02.80 - Dementia in other diseases classified elsewhere without behavioral disturbance Is this a current diagnosis for this admission?: Yes Plan: seroquel helping. Needs rehab especially since going to [facility] for lymphoma encasing R carotid and thyroid (2) Chronic combined systolic and diastolic heart failure Is this a current diagnosis for this admission?: Yes Plan: bun 40. Poor intake. Stop furosemide 20. 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 Qualifiers: Diabetes mellitus termite helper insulin use: without fci use Chronic kidney disease stage: stage 4 (severe) Qualified Code(s): E11.22 - Type 2 diabetes mellitus with diabetic chronic kidney disease; N18.4 - Chronic kidney disease, stage 4 (severe) Is this a current diagnosis for this admission?: Yes (7) Incomplete paraplegia Is this a current diagnosis for this admission?: Yes (8) Panlobular emphysema Is this a current diagnosis for this admission?: Yes (9) Obstructive sleep apnea Is this a current diagnosis for this admission?: Yes - Inpatient Certification Medical Necessity: Failure to Improve With Outpatient Therapy, Significant Comorbidiites Make Outpatient Treatment Too Risky, Need Close Monitoring Due to Risk of Patient Decompensation, Need For Continuous Telemetry Monitoring, Need for Nebulizer Therapy and Monitoring of Response, Risk of Complication if Not Cared For in Hospital, Risk of Diagnosis Which Will Require Inpatient Eval/Care/Monitoring
[2018-11-21] MEDS: LISINOPRIL 5 MG TABLET PO SCH ×2 (11:02→21:29)
[2018-11-21] MEDS: PANTOPRAZOLE SODIUM 40 MG TABLET.DR PO SCH (11:26)
[2018-11-21] MEDS: METOPROLOL SUCCINATE 50 MG TAB.SR.24H PO SCH ×2 (11:26→21:34)
[2018-11-21] MEDS: ASPIRIN 81 MG TABLET, CHEWABLE PO SCH (11:27)
[2018-11-21] MEDS: ALLOPURINOL 300 MG TABLET PO SCH (11:27)
[2018-11-21] MEDS: QUETIAPINE FUMARATE 100 MG TABLET PO SCH (19:09)
[2018-11-21] MEDS: ATORVASTATIN CALCIUM 20 MG TABLET PO SCH (21:34)
[2018-11-22] MEDS: IPRATROPIUM/ALBUTEROL 0.5-2.5 MG/3 ML AMPUL NEB SCH ×5 (04:14→20:19)
--- NOTE | 2018-11-22 07:30 | PDOC PROGRESS REPORT ---
Subjective Progress Note for:: 11/22/18 Subjective:: no pain dyspnea. Threw food across room yesterday. Nurse called about tremor. I stopped seroquel. Reason For Visit: ACUTE ON CHRONIC CHF Physical Exam Vital Signs: Temp Pulse Resp BP Pulse Ox 98.6 F 94 16 128/33 H 96 11/21/18 21:04 11/22/18 02:00 11/21/18 23:56 11/21/18 21:04 11/22/18 04:00 Intake & Output 11/20/18 11/21/18 11/22/18 07:59 07:59 07:59 Intake Total 360 360 230 Output Total 350 Balance 10 360 230 Weight 160 lb 0.889 oz 161 lb 6.054 oz 163 lb 9.328 oz General appearance: PRESENT: no acute distress Respiratory exam: PRESENT: clear to auscultation ash Cardiovascular exam: ABSENT: diastolic murmur, irregular rhythm, systolic murmur Murmur grade: 1 GI/Abdominal exam: ABSENT: mass, organolmegaly, tenderness Neurological exam: ABSENT: oriented to situation Psychiatric exam: PRESENT: appropriate affect Results Laboratory Results: 11/15/18 20:55 11/20/18 07:40 Impressions: Chest X-Ray 11/15/18 20:02 IMPRESSION: 1. Minimal bilateral pleural effusions. 2. No focal infiltrates. 3. Thoracic aortic aneurysm, similar to prior exam. Lung Scan-VQ NM 11/15/18 23:53 IMPRESSION: 1. Normal study by modified PIOPED criteria. 2. Findings suggestive of mild emphysema. Chest CT 11/16/18 00:10 IMPRESSION: 1. Emphysema 2. Moderate bilateral low-density pleural effusions. There is associated partial atelectasis in both lower lobes, but no definite acute infiltrates. 3. 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 Assessment & Plan - Diagnosis (1) Alzheimer's disease with late onset Qualifiers: Dementia behavioral disturbance: without behavioral disturbance Qualified Code(s): G30.1 - Alzheimer's disease with late onset; F02.80 - Dementia in other diseases classified elsewhere without behavioral disturbance Is this a current diagnosis for this admission?: Yes Plan: wants [facility] inspector SNF at [facility] (2) Chronic combined systolic and diastolic heart failure Is this a current diagnosis for this admission?: Yes Plan: holding furosemide for poor intake 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 Qualifiers: Diabetes mellitus watermelon inspector insulin use: without fpc use Chronic kidney disease stage: stage 4 (severe) Qualified Code(s): E11.22 - Type 2 diabetes mellitus with diabetic chronic kidney disease; N18.4 - Chronic kidney disease, stage 4 (severe) Is this a current diagnosis for this admission?: Yes (7) Incomplete paraplegia Is this a current diagnosis for this admission?: Yes (8) Panlobular emphysema Is this a current diagnosis for this admission?: Yes (9) Obstructive sleep apnea Is this a current diagnosis for this admission?: Yes - Inpatient Certification Medical Necessity: Failure to Improve With Outpatient Therapy, Significant Comorbidiites Make Outpatient Treatment Too Risky, Need Close Monitoring Due to Risk of Patient Decompensation, Need For Continuous Telemetry Monitoring, Risk of Complication if Not Cared For in Hospital, Risk of Diagnosis Which Will Require Inpatient Eval/Care/Monitoring
[2018-11-22] MEDS: ALLOPURINOL 300 MG TABLET PO SCH (09:33)
[2018-11-22] MEDS: METOPROLOL SUCCINATE 50 MG TAB.SR.24H PO SCH ×2 (09:33→22:07)
[2018-11-22] MEDS: LISINOPRIL 5 MG TABLET PO SCH ×2 (09:33→22:06)
[2018-11-22] MEDS: PANTOPRAZOLE SODIUM 40 MG TABLET.DR PO SCH (09:33)
[2018-11-22] MEDS: ASPIRIN 81 MG TABLET, CHEWABLE PO SCH (09:34)
[2018-11-22] MEDS: ATORVASTATIN CALCIUM 20 MG TABLET PO SCH (22:06)
--- NOTE | 2018-11-22 23:12 | Progress Note ---
Provider Note Provider Note: CARDIOLOGY progress note by Dr. Jasmyne Marks on 11/22/2018. SUBJECTIVE: The patient is confused although not agitated. Earlier as per his he had some shortness of breath which has subsided now. There is no arrhythmia seen on the monitor. The patient does not appear to be short of breath. He is confused but states he has no chest pain or discomfort. Yesterday he was said to have abdominal distention, the distention is much less now since the patient had a bowel movement. There is no TIA CVA symptoms with the patient moving all 4 extremities. PHYSICAL EXAMINATION: The patient is well-built and well-nourished. The patient is severely confused., Although he is not allergy agitated today. Selected Entries 11/22/18 15:40 Temperature 97.6 F Temperature Oral Source Pulse Rate 97 Respiratory 24 H Rate Blood Pressure 147/46 H Blood Pressure 79 Mean BP Location Right Arm BP Position Supine O2 Sat by Pulse 93 Oximetry Oxygen Delivery Room Air Method HEAD: Is atraumatic normocephalic. EYES: Pupils are equal round regular reactive to light accommodation. Extraocular movements are normal. There is no clinical pallor. There is no scleral icterus. EARS: Tympanic membranes are intact. NOSE: There is no deviated nasal septum. There is no inflammation of the nasal mucous membrane. MOUTH: Mucous membranes of mouth are moist tongue is moist. There is no ulcers. There is no inflammation of the gingiva. There is no bleeding from the gums. THROAT: There is no redness of the oropharynx. There is no exudates in the throat. SKIN: There is no skin rashes or skin lesions. There is no petechia or ecchymosis. NECK: Is supple. There is no JV D. Carotids are equal there is no bruits. There is no lymphadenopathy. There is no goiter. There is no accessory muscle respiration use.. Trachea central. LUNGS: There is diminished air entry prolonged expiration. Lungs are clear without any rhonchi rales or wheezing. On palpation there is no chest wall tenderness. On percussion there is hyperresonance. HEART: S1-S2 is heard there is no S3 gallop. There is no S4 gallop. There is systolic murmur left sternal border and the apex there is no rub. ABDOMEN: Soft. There is no hepatosplenomegaly. Bowel sounds are well heard. EXTREMITIES: Femorals are slightly diminished. There is no femoral bruits. Leg pulses are diminished. There is no pedal edema. There is no DVT or synovitis. There is no calf tenderness. There is no cyanosis or clubbing. STUDENT SUPPORT SERVICES DIRECTOR: The patient is conscious awake alert is oriented to person but not to place or time. There is no focal deficits. PSYCHIATRIC: The patient does not appear to be agitated or anxious. 11/22/18 11/22/18 11/22/18 06:30 11:23 16:12 POC Glucose 99 140 H 114 H 11/22/18 21:20 POC Glucose 141 H IMPRESSION/RECOMMENDATION: 1. Sharp intermittent chest pains: This is noncardiac chest pain. Doubt if this is related to the patient's thoracic ascending aortic aneurysm. Note that there is no there is been no recurrence. 2. Hypertension: Blood pressure well controlled. 3. Cardiomyopathy with moderately reduced LV ejection fraction. Most likely dilated cardiomyopathy. Will increase the patient's beta-azul and the patient's afterload reduction with ALONZO inhibitor. We will recheck the patient kidney functions in the a.m. 4. Chronic kidney disease stage III: Would avoid nephrotoxic drugs. Review of starting the patient on lisinopril would follow the patient's renal function. 5. Diabetes mellitus with diabetic nephropathy. Continue antidiabetic treatment. Continue Accu-Chek. P and treat accordingly. 6. COPD: Seems to be stable at baseline with no acute exacerbation. 7. Dementia: The patient dementia is progressing and the patient appears to be severely confused. Although at present he is not agitated, he is at times ag itated 8. History of ascending thoracic aortic aneurysm with thrombosed extramural. Clinically this does not seem to be causing any untoward effect MEDICATIONS reviewed. Discussed with attending physician on the case. Management plan discussed with the attending physician. Discussed with the patient's also. Medical decision making is of moderate complexity although it did involve adjusting the patient's medications. 40 minutes spent on this patient more than 50% of time spent in direct patient care. Will follow. Most likely the patient will need a residential care facility, since I do not think the patient's can manage him at home.
[2018-11-23] MEDS: IPRATROPIUM/ALBUTEROL 0.5-2.5 MG/3 ML AMPUL NEB SCH ×7 (01:01→23:51)
[2018-11-23 07:31] LABS: ANION GAP 9 (5-19); BLOOD UREA NITROGEN 50 mg/dL (7-20); CALCIUM 9.7 mg/dL (8.4-10.2); CARBON DIOXIDE 17 mmol/L (22-30); CHLORIDE 119 mmol/L (98-107); GLUCOSE 129 mg/dL (75-110); POTASSIUM 4.3 mmol/L (3.6-5.0); SODIUM 145.3 mmol/L (137-145)
[2018-11-23] MEDS: PANTOPRAZOLE SODIUM 40 MG TABLET.DR PO SCH (08:14)
--- NOTE | 2018-11-23 08:22 | PDOC PROGRESS REPORT ---
Subjective Progress Note for:: 11/23/18 Subjective:: no pain dyspnea Reason For Visit: ACUTE ON CHRONIC CHF Physical Exam Vital Signs: Temp Pulse Resp BP Pulse Ox 97.8 F 93 20 132/58 H 98 11/22/18 20:00 11/23/18 04:36 11/23/18 04:36 11/22/18 20:41 11/23/18 04:36 Intake & Output 11/22/18 11/23/18 11/24/18 07:59 07:59 07:59 Intake Total 230 338 Balance 230 338 Weight 163 lb 9.328 oz 164 lb 7.437 oz General appearance: PRESENT: no acute distress Respiratory exam: PRESENT: clear to auscultation ash Cardiovascular exam: ABSENT: diastolic murmur, irregular rhythm, systolic murmur GI/Abdominal exam: ABSENT: mass, organolmegaly, tenderness Extremities exam: ABSENT: pedal edema Neurological exam: PRESENT: other - B tremor. ABSENT: oriented to situation Psychiatric exam: PRESENT: appropriate affect Results Laboratory Results: 11/15/18 20:55 11/23/18 06:10 11/23/18 06:10 Sodium 145.3 H Potassium 4.3 Chloride 119 H Carbon Dioxide 17 L Anion Gap 9 BUN 50 H Creatinine 2.33 H Est GFR ( Amer) 33 L Est GFR (Non-Af Amer) 27 L Glucose 129 H Calcium 9.7 11/15/18 11/15/18 11/16/18 20:55 20:55 00:29 Creatine Kinase 54 L Troponin I 0.117 0.112 NT-Pro-B Natriuret Pep 11/16/18 11/16/18 11/16/18 06:48 12:18 18:32 Creatine Kinase Troponin I 0.105 0.089 0.089 NT-Pro-B Natriuret Pep 11/18/18 07:30 Creatine Kinase Troponin I NT-Pro-B Natriuret Pep 91272 H Impressions: Chest X-Ray 11/15/18 20:02 IMPRESSION: 1. Minimal bilateral pleural effusions. 2. No focal infiltrates. 3. Thoracic aortic aneurysm, similar to prior exam. Lung Scan-VQ NM 11/15/18 23:53 IMPRESSION: 1. Normal study by modified PIOPED criteria. 2. Findings suggestive of mild emphysema. Chest CT 04/10/19 00:10 IMPRESSION: 1. Emphysema 2. Moderate bilateral low-density pleural effusions. There is associated partial atelectasis in both lower lobes, but no definite acute infiltrates. 3. 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 Assessment & Plan - Diagnosis (1) Alzheimer's disease with late onset Qualifiers: Dementia behavioral disturbance: without behavioral disturbance Qualified Code(s): G30.1 - Alzheimer's disease with late onset; F02.80 - Dementia in other diseases classified elsewhere without behavioral disturbance Is this a current diagnosis for this admission?: Yes Plan: awaiting bed at [facility] (2) Chronic combined systolic and diastolic heart failure Is this a current diagnosis for this admission?: Yes Plan: no need for furosemide because of poor intake 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 Qualifiers: Diabetes mellitus rodent exterminator insulin use: without rodent exterminator use Chronic kidney disease stage: stage 4 (severe) Qualified Code(s): E11.22 - Type 2 diabetes mellitus with diabetic chronic kidney disease; N18.4 - Chronic kidney disease, stage 4 (severe) Is this a current diagnosis for this admission?: Yes (7) Incomplete paraplegia Is this a current diagnosis for this admission?: Yes (8) Panlobular emphysema Is this a current diagnosis for this admission?: Yes (9) Obstructive sleep apnea Is this a current diagnosis for this admission?: Yes - Inpatient Certification Medical Necessity: Failure to Improve With Outpatient Therapy, Significant Comorbidiites Make Outpatient Treatment Too Risky, Need Close Monitoring Due to Risk of Patient Decompensation, Need For Continuous Telemetry Monitoring, Risk of Complication if Not Cared For in Hospital, Risk of Diagnosis Which Will Require Inpatient Eval/Care/Monitoring
[2018-11-23] MEDS: ALLOPURINOL 300 MG TABLET PO SCH (09:06)
[2018-11-23] MEDS: ASPIRIN 81 MG TABLET, CHEWABLE PO SCH (09:06)
[2018-11-23] MEDS: LISINOPRIL 5 MG TABLET PO SCH ×2 (09:07→21:29)
[2018-11-23] MEDS: METOPROLOL SUCCINATE 50 MG TAB.SR.24H PO SCH ×2 (09:10→21:29)
--- NOTE | 2018-11-23 10:14 | Progress Note ---
Provider Note Provider Note: wants DNR & palliative care consult.
[2018-11-23] MEDS: ATORVASTATIN CALCIUM 20 MG TABLET PO SCH (21:29)
--- NOTE | 2018-11-23 23:26 | Progress Note ---
Provider Note Provider Note: Note that the patient has been made a DNR, and is going to be hospice care. Hence will sign off.
[2018-11-24] MEDS: IPRATROPIUM/ALBUTEROL 0.5-2.5 MG/3 ML AMPUL NEB SCH (04:21)
[2018-11-24] MEDS ORDERED: IPRATROPIUM/ALBUTEROL 0.5-2.5 MG/3 ML AMPUL NEB PRN (05:32)
--- NOTE | 2018-11-24 07:28 | PDOC PROGRESS REPORT ---
Subjective Progress Note for:: 11/24/18 Subjective:: no pain dyspnea Reason For Visit: ACUTE ON CHRONIC CHF Physical Exam Vital Signs: Temp Pulse Resp BP Pulse Ox 97.5 F 99 16 151/62 H 95 11/23/18 15:07 11/24/18 02:00 11/23/18 23:55 11/23/18 15:07 11/23/18 23:55 Intake & Output 11/22/18 11/23/18 11/24/18 07:59 07:59 07:59 Intake Total 230 338 Balance 230 338 Weight 163 lb 9.328 oz 164 lb 7.437 oz 162 lb 7.691 oz General appearance: PRESENT: no acute distress Respiratory exam: PRESENT: clear to auscultation ash Cardiovascular exam: ABSENT: diastolic murmur, irregular rhythm, systolic murmur GI/Abdominal exam: ABSENT: mass, organolmegaly, tenderness Extremities exam: ABSENT: pedal edema Neurological exam: PRESENT: other - no rigidity. ABSENT: oriented to situation Psychiatric exam: PRESENT: appropriate affect Results Laboratory Results: 11/15/18 20:55 11/23/18 06:10 11/23/18 06:10 Sodium 145.3 H Potassium 4.3 Chloride 119 H Carbon Dioxide 17 L Anion Gap 9 BUN 50 H Creatinine 2.33 H Est GFR ( Amer) 33 L Est GFR (Non-Af Amer) 27 L Glucose 129 H Calcium 9.7 Impressions: Chest X-Ray 11/15/18 20:02 IMPRESSION: 1. Minimal bilateral pleural effusions. 2. No focal infiltrates. 3. Thoracic aortic aneurysm, similar to prior exam. Lung Scan-VQ MT 11/15/18 23:53 IMPRESSION: 1. Normal study by modified PIOPED criteria. 2. Findings suggestive of mild emphysema. Chest CT 11/16/18 00:10 IMPRESSION: 1. Emphysema 2. Moderate bilateral low-density pleural effusions. There is associated partial atelectasis in both lower lobes, but no definite acute infiltrates. 3. 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 Assessment & Plan - Diagnosis (1) Alzheimer's disease with late onset Qualifiers: Dementia behavioral disturbance: without behavioral disturbance Qualified Code(s): G30.1 - Alzheimer's disease with late onset; F02.80 - Dementia in other diseases classified elsewhere without behavioral disturbance Is this a current diagnosis for this admission?: Yes Plan: intake poor. Working on SNF. 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 Qualifiers: Diabetes mellitus shelter insulin use: without shelter use Chronic kidney disease stage: stage 4 (severe) Qualified Code(s): E11.22 - Type 2 diabetes mellitus with diabetic chronic kidney disease; N18.4 - Chronic kidney disease, stage 4 (severe) Is this a current diagnosis for this admission?: Yes (7) Incomplete paraplegia Is this a current diagnosis for this admission?: Yes (8) Panlobular emphysema Is this a current diagnosis for this admission?: Yes (9) Obstructive sleep apnea Is this a current diagnosis for this admission?: Yes - Inpatient Certification Medical Necessity: Failure to Improve With Outpatient Therapy, Significant Comorbidiites Make Outpatient Treatment Too Risky, Need Close Monitoring Due to Risk of Patient Decompensation, Need For Continuous Telemetry Monitoring, Need for Nebulizer Therapy and Monitoring of Response, Risk of Complication if Not Ca red For in Hospital, Risk of Diagnosis Which Will Require Inpatient Eval/Care/Monitoring
[2018-11-24] MEDS: ASPIRIN 81 MG TABLET, CHEWABLE PO SCH (09:47)
[2018-11-24] MEDS: METOPROLOL SUCCINATE 50 MG TAB.SR.24H PO SCH ×2 (09:47→21:50)
[2018-11-24] MEDS: LISINOPRIL 5 MG TABLET PO SCH ×2 (09:47→21:50)
[2018-11-24] MEDS: ALLOPURINOL 300 MG TABLET PO SCH (09:47)
[2018-11-24] MEDS: PANTOPRAZOLE SODIUM 40 MG TABLET.DR PO SCH (09:47)
[2018-11-24] MEDS ORDERED: QUETIAPINE FUMARATE 100 MG TABLET PO SCH (11:00)
[2018-11-24] MEDS: ATORVASTATIN CALCIUM 20 MG TABLET PO SCH (21:50)
--- NOTE | 2018-11-25 06:48 | PDOC PROGRESS REPORT ---
Subjective Progress Note for:: 11/25/18 Subjective:: denies pain. Refusing meals meds. Reason For Visit: ACUTE ON CHRONIC CHF Physical Exam Vital Signs: Temp Pulse Resp BP Pulse Ox 97.2 F 78 20 140/59 H 97 11/24/18 15:29 11/25/18 02:00 11/24/18 15:29 11/24/18 15:29 11/24/18 15:29 Intake & Output 11/23/18 11/24/18 11/25/18 07:59 07:59 07:59 Intake Total 338 100 Balance 338 100 Weight 164 lb 7.437 oz 162 lb 7.691 oz General appearance: PRESENT: no acute distress Respiratory exam: PRESENT: clear to auscultation ash Cardiovascular exam: ABSENT: diastolic murmur, irregular rhythm, systolic murmur GI/Abdominal exam: ABSENT: mass, organolmegaly, tenderness Extremities exam: ABSENT: pedal edema Neurological exam: ABSENT: oriented to situation Psychiatric exam: PRESENT: appropriate affect Results Laboratory Results: 11/15/18 20:55 11/23/18 06:10 11/15/18 11/15/18 11/16/18 20:55 20:55 00:29 Creatine Kinase 54 L Troponin I 0.117 0.112 NT-Pro-B Natriuret Pep 11/16/18 11/16/18 11/16/18 06:48 12:18 18:32 Creatine Kinase Troponin I 0.105 0.089 0.089 NT-Pro-B Natriuret Pep 11/18/18 07:30 Creatine Kinase Troponin I NT-Pro-B Natriuret Pep 33184 H Impressions: Chest X-Ray 11/15/18 20:02 IMPRESSION: 1. Minimal bilateral pleural effusions. 2. No focal infiltrates. 3. Thoracic aortic aneurysm, similar to prior exam. Lung Scan-VQ NM 11/15/18 23:53 IMPRESSION: 1. Normal study by modified PIOPED criteria. 2. Findings suggestive of mild emphysema. Chest CT 11/16/18 00:10 IMPRESSION: 1. Emphysema 2. Moderate bilateral low-density pleural effusions. There is associated partial atelectasis in both lower lobes, but no definite acute infiltrates. 3. 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 Assessment & Plan - Diagnosis (1) Alzheimer's disease with late onset Qualifiers: Dementia behavioral disturbance: without behavioral disturbance Qualified Code(s): G30.1 - Alzheimer's disease with late onset; F02.80 - Dementia in other diseases classified elsewhere without behavioral disturbance Is this a current diagnosis for this admission?: Yes Plan: combative yesterday. Wrists restrained. 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 Qualifiers: Diabetes mellitus terminal block assembler insulin use: without halfway use Chronic kidney disease stage: stage 4 (severe) Qualified Code(s): E11.22 - Type 2 diabetes mellitus with diabetic chronic kidney disease; N18.4 - Chronic kidney disease, stage 4 (severe) Is this a current diagnosis for this admission?: Yes (7) Incomplete paraplegia Is this a current diagnosis for this admission?: Yes (8) Panlobular emphysema Is this a current diagnosis for this admission?: Yes (9) Obstructive sleep apnea Is this a current diagnosis for this admission?: Yes - Inpatient Certification Medical Necessity: Failure to Improve With Outpatient Therapy, Significant Comorbidiites Make Outpatient Treatment Too Risky, Need Close Monitoring Due to Risk of Patient Decompensation, Need for Nebulizer Therapy and Monitoring of Response, Risk of Complication if Not Cared For in Hospital, Risk of Diagnosis Which Will Require Inpatient Eval/Care/Monitoring Post Hospital Care: D/C Bag Inspector Documentation
--- NOTE | 2018-11-26 07:41 | PDOC PROGRESS REPORT ---
Subjective Subjective:: wants breakfast Reason For Visit: ACUTE ON CHRONIC CHF Physical Exam Vital Signs: Temp Pulse Resp BP Pulse Ox 97.5 F 89 17 171/60 H 94 11/26/18 03:30 11/26/18 03:30 11/26/18 03:30 11/26/18 03:30 11/26/18 03:30 Intake & Output 11/24/18 11/25/18 11/26/18 07:59 07:59 07:59 Intake Total 100 100 Output Total 236 Balance 100 -136 Weight 162 lb 7.691 oz 158 lb 11.725 oz General appearance: PRESENT: no acute distress, cooperative Respiratory exam: PRESENT: clear to auscultation ash Cardiovascular exam: ABSENT: diastolic murmur, irregular rhythm, systolic murmur GI/Abdominal exam: ABSENT: mass, organolmegaly, tenderness Extremities exam: ABSENT: pedal edema Neurological exam: ABSENT: oriented to time, oriented to situation Psychiatric exam: PRESENT: appropriate affect Results Laboratory Results: 11/15/18 20:55 11/23/18 06:10 Impressions: Chest X-Ray 11/15/18 20:02 IMPRESSION: 1. Minimal bilateral pleural effusions. 2. No focal infiltrates. 3. Thoracic aortic aneurysm, similar to prior exam. Lung Scan-VQ NM 11/15/18 23:53 IMPRESSION: 1. Normal study by modified PIOPED criteria. 2. Findings suggestive of mild emphysema. Chest CT 11/16/18 00:10 IMPRESSION: 1. Emphysema 2. Moderate bilateral low-density pleural effusions. There is associated partial atelectasis in both lower lobes, but no definite acute infiltrates. 3. 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 Assessment & Plan - Diagnosis (1) Alzheimer's disease with late onset Qualifiers: Dementia behavioral disturbance: without behavioral disturbance Qualified Code(s): G30.1 - Alzheimer's disease with late onset; F02.80 - Dementia in other diseases classified elsewhere without behavioral disturbance Is this a current diagnosis for this admission?: Yes Plan: more lucid today. Suggested that he eat and drink. 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 Qualifiers: Diabetes mellitus research recruiter insulin use: without senior living use Chronic kidney disease stage: stage 4 (severe) Qualified Code(s): E11.22 - Type 2 diabetes mellitus with diabetic chronic kidney disease; N18.4 - Chronic kidney disease, stage 4 (severe) Is this a current diagnosis for this admission?: Yes (7) Incomplete paraplegia Is this a current diagnosis for this admission?: Yes (8) Panlobular emphysema Is this a current diagnosis for this admission?: Yes (9) Obstructive sleep apnea Is this a current diagnosis for this admission?: Yes - Inpatient Certification Medical Necessity: Significant Comorbidiites Make Outpatient Treatment Too Risky, Need Close Monitoring Due to Risk of Patient Decompensation, Need For Continuous Telemetry Monitoring, Risk of Complication if Not Cared For in Hospital, Risk of Diagnosis Which Will Require Inpatient Eval/Care/Monitoring
--- NOTE | 2018-11-27 08:47 | PDOC PROGRESS REPORT ---
Subjective Progress Note for:: 11/27/18 Subjective:: no complaints Reason For Visit: ACUTE ON CHRONIC CHF Physical Exam Vital Signs: Temp Pulse Resp BP Pulse Ox 98.5 F 103 H 17 162/58 H 99 11/27/18 07:52 11/27/18 07:52 11/27/18 07:52 11/27/18 07:52 11/27/18 07:52 Intake & Output 11/26/18 11/27/18 11/28/18 07:59 07:59 07:59 Intake Total 100 678 Output Total 236 Balance -136 678 Weight 161 lb 6.054 oz General appearance: PRESENT: no acute distress Respiratory exam: PRESENT: clear to auscultation ash Cardiovascular exam: ABSENT: diastolic murmur, irregular rhythm, systolic murmur GI/Abdominal exam: ABSENT: mass, organolmegaly, tenderness Extremities exam: ABSENT: pedal edema Neurological exam: ABSENT: oriented to situation - confused last night Psychiatric exam: PRESENT: appropriate affect Results Laboratory Results: 11/15/18 20:55 11/23/18 06:10 11/15/18 11/15/18 11/16/18 20:55 20:55 00:29 Creatine Kinase 54 L Troponin I 0.117 0.112 NT-Pro-B Natriuret Pep 11/16/18 11/16/18 11/16/18 06:48 12:18 18:32 Creatine Kinase Troponin I 0.105 0.089 0.089 NT-Pro-B Natriuret Pep 11/18/18 07:30 Creatine Kinase Troponin I NT-Pro-B Natriuret Pep 13642 H Impressions: Chest X-Ray 11/15/18 20:02 IMPRESSION: 1. Minimal bilateral pleural effusions. 2. No focal infiltrates. 3. Thoracic aortic aneurysm, similar to prior exam. Lung Scan-VQ NM 11/15/18 23:53 IMPRESSION: 1. Normal study by modified PIOPED criteria. 2. Findings suggestive of mild emphysema. Chest CT 11/16/18 00:10 IMPRESSION: 1. Emphysema 2. Moderate bilateral low-density pleural effusions. There is associated partial atelectasis in both lower lobes, but no definite acute infiltrates. 3. 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 Assessment & Plan - Diagnosis (1) Alzheimer's disease with late onset Qualifiers: Dementia behavioral disturbance: without behavioral disturbance Qualified Code(s): G30.1 - Alzheimer's disease with late onset; F02.80 - Dementia in other diseases classified elsewhere without behavioral disturbance Is this a current diagnosis for this admission?: Yes Plan: ate a little. 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 Qualifiers: Diabetes mellitus shelter insulin use: without shelter use Chronic kidney disease stage: stage 4 (severe) Qualified Code(s): E11.22 - Type 2 diabetes mellitus with diabetic chronic kidney disease; N18.4 - Chronic kidney disease, stage 4 (severe) Is this a current diagnosis for this admission?: Yes (7) Incomplete paraplegia Is this a current diagnosis for this admission?: Yes (8) Panlobular emphysema Is this a current diagnosis for this admission?: Yes (9) Obstructive sleep apnea Is this a current diagnosis for this admission?: Yes - Inpatient Certification Medical Necessity: Failure to Improve With Outpatient Therapy, Significant Comorbidiites Make Outpatient Treatment Too Risky, Need Close Monitoring Due to Risk of Patient Decompensation, Risk of Complication if Not Cared For in Hospital, Risk of Diagnosis Which Will Require Inpatient Eval/Care/Monitoring
--- NOTE | 2018-11-28 08:23 | PDOC PROGRESS REPORT ---
Subjective Progress Note for:: 11/28/18 Subjective:: didnt eat yesterday Reason For Visit: ACUTE ON CHRONIC CHF Physical Exam Vital Signs: Temp Pulse Resp BP Pulse Ox 97.6 F 114 H 18 153/60 H 96 11/27/18 20:10 11/28/18 02:00 11/27/18 20:10 11/27/18 20:10 11/27/18 20:10 Intake & Output 11/27/18 11/28/18 11/29/18 07:59 07:59 07:59 Intake Total 678 980 Balance 678 980 Weight 161 lb 6.054 oz 163 lb 12.855 oz General appearance: PRESENT: no acute distress Respiratory exam: PRESENT: clear to auscultation ash Cardiovascular exam: ABSENT: diastolic murmur, irregular rhythm, systolic murmur GI/Abdominal exam: ABSENT: mass, organolmegaly, tenderness Extremities exam: ABSENT: pedal edema Neurological exam: ABSENT: oriented to situation Psychiatric exam: PRESENT: appropriate affect Results Laboratory Results: 11/15/18 20:55 11/23/18 06:10 Impressions: Chest X-Ray 11/15/18 20:02 IMPRESSION: 1. Minimal bilateral pleural effusions. 2. No focal infiltrates. 3. Thoracic aortic aneurysm, similar to prior exam. Lung Scan-VQ NM 11/15/18 23:53 IMPRESSION: 1. Normal study by modified PIOPED criteria. 2. Findings suggestive of mild emphysema. Chest CT 11/16/18 00:10 IMPRESSION: 1. Emphysema 2. Moderate bilateral low-density pleural effusions. There is associated partial atelectasis in both lower lobes, but no definite acute infiltrates. 3. 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 Assessment & Plan - Diagnosis (1) Alzheimer's disease with late onset Qualifiers: Dementia behavioral disturbance: without behavioral disturbance Qualified Code(s): G30.1 - Alzheimer's disease with late onset; F02.80 - Dementia in other diseases classified elsewhere without behavioral disturbance Is this a current diagnosis for this admission?: Yes Plan: planning 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 Qualifiers: Diabetes mellitus m[facility] insulin use: without terminal operator use Chronic kidney disease stage: stage 4 (severe) Qualified Code(s): E11.22 - Type 2 diabetes mellitus with diabetic chronic kidney disease; N18.4 - Chronic kidney disease, stage 4 (severe) Is this a current diagnosis for this admission?: Yes (7) Incomplete paraplegia Is this a current diagnosis for this admission?: Yes (8) Panlobular emphysema Is this a current diagnosis for this admission?: Yes (9) Obstructive sleep apnea Is this a current diagnosis for this admission?: Yes - Inpatient Certification Medical Necessity: Significant Comorbidiites Make Outpatient Treatment Too Risky, Need Close Monitoring Due to Risk of Patient Decompensation, Need For Continuous Telemetry Monitoring, Need for IV Antibiotics
--- NOTE | 2018-11-29 07:38 | PDOC PROGRESS REPORT ---
Subjective Progress Note for:: 11/29/18 Subjective:: no pain dyspnea Reason For Visit: ACUTE ON CHRONIC CHF Physical Exam Vital Signs: Temp Pulse Resp BP Pulse Ox 98.3 F 117 H 18 166/55 H 91 L 11/28/18 23:43 11/29/18 02:00 11/28/18 23:43 11/28/18 23:43 11/28/18 23:43 Intake & Output 11/27/18 11/28/18 11/29/18 07:59 07:59 07:59 Intake Total 678 980 586 Balance 678 980 586 Weight 161 lb 6.054 oz 163 lb 12.855 oz 166 lb 7.184 oz General appearance: PRESENT: no acute distress Respiratory exam: PRESENT: clear to auscultation ash Cardiovascular exam: ABSENT: diastolic murmur, irregular rhythm, systolic murmur GI/Abdominal exam: ABSENT: mass, organolmegaly, tenderness Extremities exam: ABSENT: pedal edema Neurological exam: ABSENT: oriented to situation Psychiatric exam: PRESENT: appropriate affect Results Laboratory Results: 11/15/18 20:55 11/23/18 06:10 11/15/18 11/15/18 11/16/18 20:55 20:55 00:29 Creatine Kinase 54 L Troponin I 0.117 0.112 NT-Pro-B Natriuret Pep 11/16/18 11/16/18 11/16/18 06:48 12:18 18:32 Creatine Kinase Troponin I 0.105 0.089 0.089 NT-Pro-B Natriuret Pep 11/18/18 07:30 Creatine Kinase Troponin I NT-Pro-B Natriuret Pep 64922 H Impressions: Chest X-Ray 11/15/18 20:02 IMPRESSION: 1. Minimal bilateral pleural effusions. 2. No focal infiltrates. 3. Thoracic aortic aneurysm, similar to prior exam. Lung Scan-VQ NM 11/15/18 23:53 IMPRESSION: 1. Normal study by modified PIOPED criteria. 2. Findings suggestive of mild emphysema. Chest CT 11/16/18 00:10 IMPRESSION: 1. Emphysema 2. Moderate bilateral low-density pleural effusions. There is associated partial atelectasis in both lower lobes, but no definite acute infiltrates. 3. 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 Assessment & Plan - Diagnosis (1) Alzheimer's disease with late onset Qualifiers: Dementia behavioral disturbance: without behavioral disturbance Qualified Code(s): G30.1 - Alzheimer's disease with late onset; F02.80 - Dementia in other diseases classified elsewhere without behavioral disturbance Is this a current diagnosis for this admission?: Yes Plan: found standing beside bed with rails up yesterday. Restrained. Not eating. In & out cath failed to yield culture twice when urine smelled foul. wants inpatient hospice in [place]. 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 Qualifiers: Diabetes mellitus manager intermediate insulin use: without manager intermediate use Chronic kidney disease stage: stage 4 (severe) Qualified Code(s): E11.22 - Type 2 diabetes mellitus with diabetic chronic kidney disease; N18.4 - Chronic kidney disease, stage 4 (severe) Is this a current diagnosis for this admission?: Yes (7) Incomplete paraplegia Is this a current diagnosis for this admission?: Yes (8) Panlobular emphysema Is this a current diagnosis for this admission?: Yes (9) Obstructive sleep apnea Is this a current diagnosis for this admission?: Yes - Inpatient Certification Medical Necessity: Significant Comorbidiites Make Outpatient Treatment Too Risky, Need Close Monitoring Due to Risk of Patient Decompensation, Need For Continuous Telemetry Monitoring, Risk of Complication if Not Cared For in Hospital, Risk of Diagnosis Which Will Require Inpatient Eval/Care/Monitoring
--- NOTE | 2018-11-29 11:15 | PDOC TRANSFER SUMMARY ---
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 Is this a current diagnosis for this admission?: Yes (5) Precordial pain Is this a current diagnosis for this admission?: Yes (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 Is this a current diagnosis for this admission?: Yes (7) Incomplete paraplegia Is this a current diagnosis for this admission?: Yes (8) Panlobular emphysema Is this a current diagnosis for this admission?: Yes (9) Obstructive sleep apnea Is this a current diagnosis for this admission?: Yes - Transfer Medications Home Medications: Albuterol Sulfate [Ventolin Hfa] 2 puff IH QID 04/11/18 Amlodipine Besylate [Norvasc 10 mg Tablet] 10 mg PO QAM 04/11/18 Atorvastatin Calcium [Lipitor 20 mg Tablet] 20 mg PO QHS 04/11/18 Clonidine HCl [Catapres 0.1 mg Tablet] 0.1 mg PO Q12 04/11/18 Fluticasone/Salmeterol [Advair 250-50 Diskus 28 dose] 1 puff IH BID 04/11/18 Furosemide [Lasix 20 mg Tablet] 20 mg PO DAILY 04/11/18 Glimepiride [Amaryl 1 mg Tablet] 0.5 mg PO DAILY 04/11/18 Pantoprazole Sodium [Protonix] 40 mg PO [id number] 04/11/18 Allopurinol [Zyloprim] 300 mg PO DAILY 11/16/18 Aspirin [Ecotrin] 81 mg PO DAILY 11/16/18 Calcium Polycarbophil [Fibercon 625 mg Tablet] 625 mg PO DAILY 11/16/18 Cholecalciferol (Vitamin D3) [Vitamin D3 1000 Unit Tablet] 5,000 unit PO DAILY 11/16/18 Ferrous Sulfate [Feosol 325 mg Tablet] 325 mg PO DAILY 11/16/18 Losartan Potassium [Cozaar 100 mg Tablet] 100 mg PO DAILY 11/16/18 Transfer Medications: Current Medications Albuterol/Ipratropium (Duoneb 3 Ml Ampul) 3 ml NEB [id number] PRN PRN Reason: FOR WHEEZING Stop: 12/24/18 05:31 - Allergies Allergies/Adverse Reactions: ciprofloxacin [From Cipro] Allergy (Intermediate, Verified 04/11/18 10:48) rash Heparin Analogues [Heparin Agents] Adverse Reaction (Severe, Verified 04/11/18 10:48) Hemorrhage codeine Adverse Reaction (Verified 11/15/18 20:30) Abnormal behavior - Diet/Activity Discharge Diet: Regular Discharge Activity: Supervised Activity Hospital Course Hospital Course: Echo showed [id number]. Dr Koo suggested metoprolol and lisinopril, but he eventually spit all his meds & food out. He was combative at times and required restraints to keep him in the bed. Seroquel helped. He spit that out too. has cancer and is no longer able to care for him at home. She requested DNR and hospice house in [place]. Physical Exam Vital Signs: Temp Pulse Resp BP Pulse Ox 98.3 F 111 H 18 166/55 H 91 L 11/28/18 23:43 11/29/18 07:00 11/28/18 23:43 11/28/18 23:43 11/28/18 23:43 Intake & Output 11/28/18 11/29/18 11/30/18 07:59 07:59 07:59 Intake Total 980 586 Balance 980 586 Weight 163 lb 12.855 oz 166 lb 7.184 oz General appearance: PRESENT: no acute distress Respiratory exam: PRESENT: clear to auscultation ash Cardiovascular exam: ABSENT: diastolic murmur, irregular rhythm, systolic murmur GI/Abdominal exam: ABSENT: mass, organolmegaly, tenderness Extremities exam: ABSENT: pedal edema Neurological exam: ABSENT: oriented to situation Psychiatric exam: PRESENT: appropriate affect Results Laboratory Results: Labs- Last Values WBC 6.8 10^3/uL (4.0-10.5) 11/15/18 20:55 RBC 3.99 10^6/uL (4.35-5.55) L 11/15/18 20:55 Hgb 13.0 g/dL (13.5-17.0) L 11/15/18 20:55 Hct 38.9 % (37.9-51.0) 11/15/18 20:55 MCV 98 fl (80-97) H 11/15/18 20:55 MCH 32.7 pg (27.0-33.4) 11/15/18 20:55 MCHC 33.5 g/dL (32.0-36.0) 11/15/18 20:55 RDW 17.3 % (11.5-14.0) H 11/15/18 20:55 Plt Count 313 10^3/uL (150-450) 11/15/18 20:55 Seg Neutrophils % 80.9 % (42-78) H 11/15/18 20:55 Lymphocytes % 10.5 % (13-45) L 11/15/18 20:55 Monocytes % 5.9 % (3-13) 11/15/18 20:55 Eosinophils % 2.2 % (0-6) 11/15/18 20:55 Basophils % 0.5 % (0-2) 11/15/18 20:55 Absolute Neutrophils 5.5 10^3/uL (1.7-8.2) 11/15/18 20:55 Absolute Lymphocytes 0.7 10^3/uL (0.5-4.7) 11/15/18 20:55 Absolute Monocytes 0.4 10^3/uL (0.1-1.4) 11/15/18 20:55 Absolute Eosinophils 0.1 10^3/uL (0.0-0.6) 11/15/18 20:55 Absolute Basophils 0.0 10^3/uL (0.0-0.2) 11/15/18 20:55 Sodium 145.3 mmol/L (137-145) H 11/23/18 06:10 Potassium 4.3 mmol/L (3.6-5.0) 11/23/18 06:10 Chloride 119 mmol/L (98-107) H 11/23/18 06:10 Carbon Dioxide 17 mmol/L (22-30) L 11/23/18 06:10 Anion Gap 9 (5-19) 11/23/18 06:10 BUN 50 mg/dL (7-20) H 11/23/18 06:10 Creatinine 2.33 mg/dL (0.52-1.25) H 11/23/18 06:10 Est GFR ( Amer) 33 (>60) L 11/23/18 06:10 Est GFR (Non-Af Amer) 27 (>60) L 11/23/18 06:10 Glucose 129 mg/dL (75-110) H 11/23/18 06:10 POC Glucose 144 mg/dL (70-110) H 11/29/18 10:24 Calcium 9.7 mg/dL (8.4-10.2) 11/23/18 06:10 Total Bilirubin 0.8 mg/dL (0.2-1.3) 11/15/18 20:55 Direct Bilirubin 0.2 mg/dL (0.0-0.4) 11/15/18 20:55 Neonat Total Bilirubin Not Reportable 11/15/18 20:55 Neonat Direct Bilirubin Not Reportable 11/15/18 20:55 Neonat Indirect Bili Not Reportable 11/15/18 20:55 AST 25 U/L (17-59) 11/15/18 20:55 ALT 28 U/L (21-72) 11/15/18 20:55 Alkaline Phosphatase 67 U/L (38-126) 11/15/18 20:55 Creatine Kinase 54 U/L (55-170) L 11/15/18 20:55 Troponin I 0.089 ng/mL 11/16/18 18:32 NT-Pro-B Natriuret Pep 92224 pg/mL (<450) H 11/18/18 07:30 Total Protein 7.5 g/dL (6.3-8.2) 11/15/18 20:55 Albumin 4.0 g/dL (3.5-5.0) 11/15/18 20:55 Impressions: Chest X-Ray 11/15/18 20:02 IMPRESSION: 1. Minimal bilateral pleural effusions. 2. No focal infiltrates. 3. Thoracic aortic aneurysm, similar to prior exam. Lung Scan-VQ NM 11/15/18 23:53 IMPRESSION: 1. Normal study by modified PIOPED criteria. 2. Findings suggestive of mild emphysema. Chest CT 11/16/18 00:10 IMPRESSION: 1. Emphysema 2. Moderate bilateral low-density pleural effusions. There is associated partial atelectasis in both lower lobes, but no definite acute infiltrates. 3. 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 Plan Discharge Plan: hospice house in [place]
[2018-11-29 13:45] VITALS: BP 156/62
== END 2018-11-29 14:14 | disposition hospice, inpatient (51) | DRG 57 ==
LOC: ER 19:09 → EH 11-16 05:07 → INTOOBSV 11-16 05:07 → 4S 11-16 12:56 → OBSVTOIN 11-17 13:50
PROVIDERS: ADMIT Family Medicine; ATTEND Family Medicine
DX: G30.1 Alzheimer's disease with late onset (principal); G82.22 Paraplegia, incomplete; I13.0 Hypertensive heart and chronic kidney disease with heart failure and stage 1 through stage 4 chronic kidney disease, or unspecified chronic kidney disease; I50.42 Chronic combined systolic (congestive) and diastolic (congestive) heart failure; I71.2 Thoracic aortic aneurysm, without rupture; Z66 Do not resuscitate; R07.2 Precordial pain; E11.22 Type 2 diabetes mellitus with diabetic chronic kidney disease; N18.3 Chronic kidney disease, stage 3 (moderate); J43.1 Panlobular emphysema; E78.00 Pure hypercholesterolemia, unspecified; I35.1 Nonrheumatic aortic (valve) insufficiency; I27.20 Pulmonary hypertension, unspecified; K21.9 Gastro-esophageal reflux disease without esophagitis; N40.0 Benign prostatic hyperplasia without lower urinary tract symptoms; R35.1 Nocturia; G47.33 Obstructive sleep apnea (adult) (pediatric); F02.80 Dementia in other diseases classified elsewhere, unspecified severity, without behavioral disturbance, psychotic disturbance, mood disturbance, and anxiety; Z86.73 Personal history of transient ischemic attack (TIA), and cerebral infarction without residual deficits; Z79.84 Long term (current) use of oral hypoglycemic drugs; Z79.51 Long term (current) use of inhaled steroids; Z79.899 Other long term (current) drug therapy
CPT/HCPCS: 36415; 71046; 71250; 78582; 80048; 80053; 82550; 82962; 83880; 84484; 85025; 93005; 93010; 93306; 94640; 99285; A9540; A9567; G0378; J1630; J1940; J3490; J7620; Q9969